=== PATIENT | male | born 1960 | race Caucasian/White ===

== ENCOUNTER → 2017-03-23 | Outpatient (REF) | payer OTHER ==
[2017-03-23 12:25] LABS: ALBUMIN/GLOBULIN RATIO 1.48 (1.00-1.93); ALKALINE PHOSPHATASE 46 U/L (45-117); ALT/SGPT 19 U/L (12-78); ANION GAP 6 MEQ/L (8-16); AST/SGOT 14 U/L (15-37); BILIRUBIN,TOTAL 0.4 MG/DL (0.2-1.0); BLOOD UREA NITROGEN 12 MG/DL (7-18); CALCIUM LEVEL 9.3 MG/DL (8.5-10.1); CARBON DIOXIDE LEVEL 29 MEQ/L (21-32); CHLORIDE LEVEL 103 MEQ/L (98-107); GLOMERULAR FILTRATION RATE > 60.0 (>56); GLUCOSE, FASTING 135 MG/DL (70-105); POTASSIUM SERUM 3.8 MEQ/L (3.5-5.1); SODIUM LEVEL 138 MEQ/L (136-145); TOTAL PROTEIN 6.7 GM/DL (6.4-8.2); URIC ACID 5.4 MG/DL (3.5-7.2)
[2017-03-25 00:10] LABS: Lyme Disease IgG/IgM Antibodie <0.91 ISR (0.00-0.90); Lyme Disease IgM Ab Quantitati <0.80 index (0.00-0.79)
== END ==
LOC: M LABDRAW1 11:35
PROVIDERS: ATTEND Physician Assistant
DX: S60.032D Contusion of left middle finger without damage to nail, subsequent encounter (principal); X58.XXXD Exposure to other specified factors, subsequent encounter; Y93.9 Activity, unspecified; Y92.9 Unspecified place or not applicable; Y99.8 Other external cause status

== ENCOUNTER → 2017-07-20 | Outpatient (CLI) | payer OTHER ==
--- NOTE | 2017-07-20 12:27 | REP ---
MRI LUMBAR SPINE WITHOUT CONTRAST: HISTORY: Back pain. The lowest intervertebral disc is assumed to be the L5-S1 intervertebral disc. A rudimentary disc is present at the S1-2 level. Decreased signal intensity on T2-weighted images is present in the T11-12 through L4-5 intervertebral discs. The discs are decreased in height. These findings are consistent with disc degeneration. A diffuse disc bulge is present at the L1-2 level. There are 2 mm of retrolisthesis of L1 on L2. There is minimal compression of the thecal sac. The L1 nerves exit the neural foramina without compression. A diffuse disc bulge is present at the L2-3 level. There is hypertrophy of the ligamenta flava and posterior articulating facets. These findings produce mild central canal stenosis. The L2 nerves exit the neural foramina without compression. A diffuse disc bulge asymmetric to the left is present at the L3-4 level. There is hypertrophy of the ligamenta flava and posterior articulating facets. These findings produce mild central canal stenosis. There is compression of the left L3 nerve in the neural foramen. The right L3 nerve exits the neural foramen without compression. A diffuse disc bulge is present at the L4-5 level. There is hypertrophy of the ligamenta flava and posterior articulating facets. A 2 mm synovial cyst is present medial to the left L4-5 facet joint. These findings produce mild central canal stenosis. There is compression of the L4 nerves in the neural foramina. A diffuse disc bulge is present at the L5-S1 level. There is minimal compression of the thecal sac. There is hypertrophy of the posterior articulating facets. The L5 nerves exit the neural foramina without compression. There is partial sacralization of the L5 vertebral body. The conus medullaris is normal in appearance terminating at the level of the T12-L1 intervertebral disc. A hemangioma is present in the L1 vertebral body. Increased signal intensity on T2-weighted images is present in the endplates of L1, L3 and L4 vertebral bodies. This represents degenerative change. IMPRESSION: 1. Diffuse disc bulge and retrolisthesis at the L1-2 level with minimal thecal sac compression. 2. Mild central canal stenosis at the L2-3 and L3-4 levels secondary to disc bulge, ligamentous and facet hypertrophy. There is compression of the left L3 nerve in the neural foramen. 3. Mild central canal stenosis at the L4-5 level secondary to disc bulge, ligamentous and facet hypertrophy and a left synovial cyst. There is compression of the L4 nerves in the neural foramina. 4. Diffuse disc bulge at the L5-S1 level with minimal thecal sac compression. Signed by Velasquez Fry MD 07/20/2017 12:37 P
== END ==
LOC: M RAD 10:35
PROVIDERS: ATTEND Physician Assistant
DX: M51.36 Other intervertebral disc degeneration, lumbar region (principal); M48.061 Spinal stenosis, lumbar region without neurogenic claudication

== ENCOUNTER → 2018-04-25 | Outpatient (REF) | payer OTHER ==
[2018-04-25 19:23] LABS: URINE TOTAL PROTEIN 6.9 MG/DL (0-12)
[2018-05-02 13:44] LABS: UPEP INTERPRETATION NO M-SPIKE NOTED; URINE VOLUME RANDOM ML
== END ==
LOC: M LAB REF 17:16
DX: R20.2 Paresthesia of skin (principal)
CPT/HCPCS: 84166

== ENCOUNTER → 2019-01-13 | Outpatient (CLI) | payer OTHER ==
--- NOTE | 2019-01-27 01:03 | ECWPNPC ---
PATIENT NAME: DEVIN POLLARD : 1960 GENDER: MALE VISIT DATE: 01/13/2019 DISCHARGE DATE: 01/13/19 1519 VISIT LOCKED DATE TIME: PHYSICIAN: CINDY ESCOBAR MD RESOURCE: CINDY ESCOBAR MD REASON FOR APPOINTMENT 1. LBP HISTORY OF PRESENT ILLNESS NEW PATIENT CONSULT: WHEN DID YOUR PAIN FIRST START? . BRIEFLY DESCRIBE HOW YOUR PAIN STARTED? . HOW DOES YOUR PAIN CHANGE WITH TIME? . DOES YOUR PAIN AWAKEN YOU FROM SLEEP? . HOW MANY HOURS OF SLEEP DO YOU NORMALLY GET? . ANY DIAGNOSTIC TESTING? . FACILITY WHERE TESTS WERE DONE? ____. PAIN TREATMENT TREATMENT YES CANCER HAVE YOU EVER HAD ANY TYPE OF CANCER?NO NO. PAIN SCREENING: PATIENT HAS A COMPLAINT OF ACUTE OR CHRONIC PAIN :YES 58 YEAR OLD MALE PATIENT WITH A HISTORY OF CHRONIC LOW BACK PAIN. THE PATIENT DESCRIBES THE PAIN ACHING, BURNING, SORE, SHARP, STABBING, SHOOTING, AND CONTINUOUS WITH A PAIN SCORE OF 2-8/10 DEPENDING ON PHYSICAL ACTIVITY. THE PATIENT SAYS HE HAS HAD THIS PAIN FOR YEARS. THE PATIENT SAYS HE HAS DIFFICULTY DOING DAILY ACTIVITIES SUCH COOKING, CLEANING, AND GROCERY SHOPPING DUE TO THIS PAIN. PATIENT DENIES UNEXPLAINABLE WEIGHT LOSS, FEVER, CHILLS, NEW CHANGES ON HIS URINARY OR BOWEL CONTROL. FALL RISK SCREENING: SCREENING : NO FALLS IN THE PAST YEAR. LEVI INVENTORY: QUESTIONNAIRE ASSESSEDTBD SCORE VALUE CALCULATED TBD CURRENT MEDICATIONS TAKING AZELASTINE HCL 0.1 % SOLUTION 1 PUFF IN EACH NOSTRIL NASALLY TWICE A DAY TAKING TRAMADOL HCL 50 MG TABLET 1 TABLET NEEDED ORALLY ONCE A DAY TAKING TRAMADOL HCL ER 200 MG TABLET EXTENDED RELEASE 24 HOUR 1 TABLET ORALLY ONCE A DAY TAKING AMLODIPINE BESYLATE 5 MG TABLET 1 TABLET ORALLY ONCE A DAY TAKING LISINOPRIL 40 MG TABLET 1 TABLET ORALLY ONCE A DAY TAKING FERROUS SULFATE 325 MG CAPSULE DIRECTED ORALLY TAKING MAGNESIUM OXIDE 400 MG TABLET 1 TABLET NEEDED ORALLY ONCE A DAY TAKING MULTIVITAMIN - TABLET CHEWABLE DIRECTED ORALLY TAKING VITAMIN B COMPLEX - TABLET DIRECTED ORALLY TAKING VITAMIN D3 2000 UNIT CAPSULE 1 CAPSULE ORALLY ONCE A DAY TAKING TYLENOL EXTRA STRENGTH 500 MG TABLET 1 TABLET NEEDED ORALLY EVERY 6 HRS TAKING HYDROCODONE-ACETAMINOPHEN 5-500 MG CAPSULE DIRECTED ORALLY , NOTES: 5/300 DOSE MEDICATION LIST REVIEWED AND RECONCILED WITH THE PATIENT PAST MEDICAL HISTORY HTN LBP ALLERGIES NSAIDS: ANGIOEDEMA - ALLERGY - CRITICALITY HIGH - ONSET DATE 01/13/2019 SURGICAL HISTORY APPENDECTOMY 1974 MELANOMA REMOVED POSTERIOR NECK 2007 FAMILY HISTORY FATHER: , DIAGNOSED WITH HYPERTENSION, HEART DISEASE MOTHER: ALIVE 1 BROTHER(S) , 1 SISTER(S) - HEALTHY. 3 SON(S) , 1 DAUGHTER(S) - HEALTHY. SOCIAL HISTORY GENERAL: PAIN CLINIC PFS, CLERGY, PUBLIC HEALTH REFERRALS CLERGY REFERRAL NEEDED?NO WAS THE PROVIDER NOTIFIED OF ANY PERTINENT INFO?NO PFS REFERRAL NEEDED?NO PUBLIC HEALTH REFERRAL NEEDED?NO PATIENT: ____. HOSPITALIZATION/MAJOR DIAGNOSTIC PROCEDURE SURGERY REVIEW OF SYSTEMS REVIEWED BY: PROVIDER: CINDY ESCOBAR MD . CONSTITUTIONAL: ANY CHANGE IN YOUR MEDICAL CONDITION? NO . CHILLS NO . FEVER NO . INFECTION: DO YOU HAVE NEW INFECTIONS? NO . DO YOU HAVE HISTORY OF MRSA? NO . MUSCULOSKELETAL: ANY NEW PATTERNS OF PAIN OR NUMBNESS? YES, BILAT FOOT ALTERED SENSORY X 5 YEARS . SYTEMIC LUPUS NO . GASTROENTEROLOGY: ANY NEW CHANGE IN BOWEL CONTROL? YES, PT C/O URGENCY W BOWELS, PT ASSOCIATES W TAKING TRAMADOL . BARRETTS ESOPHAGUS NO . CIRRHOSIS NO . HEPATITIS NO . LIVER FAILURE NO . ACID REFLUX NO . UNEXPLAINED WEIGHT LOSS NO . GENITOURINARY: ANY NEW CHANGE IN BLADDER CONTROL? YES, PT C/O URGENCY X 1-1 1/2 YEARS . IS THERE A CHANCE YOU COULD BE ? NO . HEMATOLOGY/LYMPH: DO YOU TAKE ANY BLOOD THINNERS? (FOR EXAMPLE- COUMADIN, PLAVIX, AGGRENOX, PLATEL, PRADAXA, OR XARELTO) NO . WHEN WAS YOUR LAST DOSE? DATE: TIME: . LOW PLATELET COUNT NO . SICKLE CELL DISEASE NO . VON WILLIEBRANDS NO . FACTOR V LEIDEN NO . THALLASEMIA NO . ANEMIA NO . EASY BRUISING NO . NEUROLOGY: HAVE YOU FALLEN IN THE PAST 12 MONTHS? YES, FELL 2 DAYS AGO FROM ALTERED FOOT SENSORY . ANY NEW EXTREMITY NUMBNESS OR WEAKNESS? YES ,BILAT FOOT ALTERED SENSORY . HEAD INJURY NO . DEMENTIA NO . CEREBRAL PALSY NO . MULTIPLE SCLEROSIS NO . DIZZINESS NO . HEADACHE NO . STROKES NO . VERTIGO NO . CARDIOLOGY: DO YOU HAVE A PACEMAKER OR DEFIBRILLATOR? NO . ANGINA NO . HEART ATTACK NO . HEART SURGERY NO . CONGESTIVE HEART FAILURE/FLUID OVERLOAD NO . CHEST PAIN NO . HIGH BLOOD PRESSURE ON MEDICATION(S) . IRREGULAR HEART BEAT NO . RESPIRATORY: HAVE YOU BEEN SICK IN THE PAST WEEK? NO . FEVER NO . FLU LIKE SYMPTOMS? NO . CPAP NO . BYPAP NO . ASTHMA NO . EMPHYSEMA NO . CHRONIC LUNG DISEASES NO . SHORTNESS OF BREATH ON EXERTION NO . DO YOU USE ANY TYPE OF TOBACCO (SMOKE, SMOKELESS, CHEW)? NO . COUGH NO . SNORING NO . INTEGUMENTARY: DO YOU HAVE ANY RASHES OR OPEN SORES? NO . ALLERGIC/IMMUNO: ARE YOU ALLERGIC TO IV DYE? NO . ANY NEW ALLERGIES? NO . PSYCHIATRIC: DO YOU HAVE THOUGHTS OF HURTING YOURSELF OR SOMEONE ELSE? NO . ARE YOU ABUSED, NEGLECTED, OR IN AN UNSAFE ENVIRONMENT? NO . ENDOCRINOLOGY: ARE YOU DIABETIC? NO . THYROID DISORDER NO . OTHER: DO YOU NEED ANY PRESCRIPTIONS? YES ,CURRENTLY PRESCRIBED BY PCP . IF YES, PLEASE LIST: ____ . ANY NEW PROBLEMS WITH YOUR MEDICATIONS? NO . WHEN DID YOU LAST EAT? ____ . WHEN DID YOU LAST DRINK? ____ . WHAT DID YOU LAST DRINK? ____ . NAME OF PERSON DRIVING YOU HOME? ____ . DO YOU HAVE ANY OTHER QUESTIONS OR CONCERNS YES, PT ASKING FOR PAIN RELIEF, ASKING FOR INTERVENTIONS NON-MEDICAL AND NON-INVASIVE . VITAL SIGNS WT 168.2 LBS, HT 72 IN, BMI 22.81 INDEX, BP 145/80 MM HG, HR 76 /MIN, RR 18 /MIN, TEMP 97.4 F, OXYGEN SAT % 94%, NA INITIALS SC 12:49, REVIEWED BY: ALEXEI. EXAMINATION GENERAL EXAMINATION: PATIENT IS ALERT O X 3 AND COOPERATIVE. TENDERNESS IN THE LOW BACK AREA. PRESENCE OF TRIGGER POINTS AND BANDS OF TISSUE WITH RESTRICTION OF MOVEMENT OF THE BACK. PAIN INCREASES OVER THE LUMBAR FACET JOINTS WITH EXTENSION AND LATERAL ROTATION OF THE BACK. MRI OF THE LUMBAR SPINE DONE ON 07/20/2017 SHOWS FACET ARTHROPATHY CHANGES AT MULTIPLE LEVELS. ASSESSMENTS MYALGIA, OTHER SITE - M79.18 (PRIMARY) TREATMENT MYALGIA, OTHER SITE CLINICAL NOTES: WE DISCUSSED SEVERAL ISSUES WITH MR. POLLARD'S PAIN MANAGEMENT CASE. DUE TO THE TRIGGER POINTS, BANDS OF TISSUE, AND RESTRICTION OF MOVEMENT, I WOULD LIKE TO MOVE FORWARD WITH A TRIGGER POINT INJECTION AT THIS TIME. WE DISCUSSED THE BENEFITS, RISKS, AND ALTERNATIVES OF THE INJECTION AND THE PATIENT WOULD LIKE TO PROCEED. THE PATIENT MAY CONSIDER A LUMBAR FACET BLOCK DEPENDING ON THE RESULTS OF THE INJECTION. THE PATIENT WILL FOLLOW UP A FEW WEEKS AFTER THE INJECTION. INSTRUCTIONS WERE GIVEN, QUESTIONS WERE ANSWERED, PATIENT REPORTS UNDERSTANDING AND AGREES WITH THE PLAN. I, ANGELIA MOLINA, DOCUMENTED THE ABOVE INFORMATION ACTING A SCRIBE FOR DR. ESCOBAR. I HAVE REVIEWED THE ABOVE DOCUMENT, WRITTEN BY ANGELIA PRETTY AND I VERIFY THAT IT IS ACCURATE. DEAR RADHA LOVE:THANK YOU FOR YOUR KIND REFERRAL OF MR. POLLARD. IF YOU WANT TO DISCUSS HIS CASE WITH ME PLEASE CALL ME AT THE PAIN CENTER AT [phone]. SINCERELY,CINDY ESCOBAR, [facility] . OTHERS NOTES: TRIGGER POINT INJECTION: YOUR EXPERIENCE MATERIAL WAS PRINTED,TRIGGER POINT INJECTION MATERIAL WAS PRINTED. PREVENTIVE MEDICINE PAIN CLINIC TEACHING: PROCEDURE TEACHING PT GIVEN WRITTEN AND VERBAL EDUCATION ON TRIGGER POINT INJECTIONS. PT ALSO GIVEN WRITTEN AND VERBAL PRE-PROCEDURE INSTRUCTIONS. PT VERBALIZES UNDERSTANDING OF ALL EDUCATION AND INSTRUCTIONS BLAKE COLEMAN 01/13/2019 3:20:31 PM > . PROCEDURE CODES FA211 ESTABILISHED PATIENT [facility] FACILITY CHARGE G8427 CURRENT MEDS W/DOSAGES DOCUMENTED G8730 PAIN ASSESS POS TOOL F/U PLAN DOC DISPOSITION & COMMUNICATION FOLLOW UP 3 WEEKS ELECTRONICALLY SIGNED BY CINDY ESCOBAR MD, MD ON 01/26/2019 AT 06:42 PM EDT DISCLAIMER : THIS IS A VISIT SUMMARY EXTRACTED FROM THE [employer] CHART. IT IS NOT A COPY OF THE [employer] PROGRESS NOTE. MTDD
== END ==
LOC: M PAIN 12:45
PROVIDERS: ATTEND Anesthesiology
DX: M79.18 Myalgia, other site (principal); I10 Essential (primary) hypertension; Z88.6 Allergy status to analgesic agent; Z79.891 Long term (current) use of opiate analgesic; Z79.899 Other long term (current) drug therapy

== ENCOUNTER → 2019-02-12 | Outpatient (CLI) | payer OTHER ==
[~2019-02-12] MED LIST: BUPIVACAINE HCL 0.25% 10 ML VIAL As Ordered ONE; BUPIVACAINE HCL 0.25% 30 ML VIAL As Ordered ONE; TRIAMCINOLONE ACETONIDE SUSP 40 MG/ML VIAL (J3301) As Ordered ONE; diazePAM 5 MG TAB As Ordered ONE; oxyCODONE 5MG TAB As Ordered ONE
--- NOTE | 2019-02-15 01:41 | ECWPNPC ---
PATIENT NAME: DEVIN POLLARD : 1960 GENDER: MALE VISIT DATE: 02/12/2019 DISCHARGE DATE: 02/12/19 1224 VISIT LOCKED DATE TIME: PHYSICIAN: CINDY ESCOBAR MD RESOURCE: CINDY ESCOBAR MD REASON FOR APPOINTMENT 1. TPI HISTORY OF PRESENT ILLNESS HISTORY OF PRESENT ILLNESS: PAIN THE PATIENT DESCRIBES THE PAIN... FALL RISK SCREENING: SCREENING :NO FALLS REPORTED IN THE LAST YEAR CURRENT MEDICATIONS TAKING AZELASTINE HCL 0.1 % SOLUTION 1 PUFF IN EACH NOSTRIL NASALLY TWICE A DAY, NOTES: > 3 WEEKS TAKING TRAMADOL HCL 50 MG TABLET 1 TABLET NEEDED ORALLY ONCE A DAY, NOTES: 02/12/19 0500 TAKING TRAMADOL HCL ER 200 MG TABLET EXTENDED RELEASE 24 HOUR 1 TABLET ORALLY ONCE A DAY, NOTES: 02/11/19 0630 TAKING AMLODIPINE BESYLATE 5 MG TABLET 1 TABLET ORALLY ONCE A DAY, NOTES: 02/12/19 0500 TAKING LISINOPRIL 40 MG TABLET 1 TABLET ORALLY ONCE A DAY, NOTES: 02/11/19 1400 TAKING FERROUS SULFATE 325 MG CAPSULE DIRECTED ORALLY , NOTES: 02/11/19 1400 TAKING MAGNESIUM OXIDE 400 MG TABLET 1 TABLET NEEDED ORALLY ONCE A DAY, NOTES: 02/11/19 1400 TAKING MULTIVITAMIN - TABLET CHEWABLE DIRECTED ORALLY , NOTES: 02/11/19 1400 TAKING VITAMIN B COMPLEX - TABLET DIRECTED ORALLY , NOTES: 02/11/19 1400 TAKING VITAMIN D3 2000 UNIT CAPSULE 1 CAPSULE ORALLY ONCE A DAY, NOTES: 02/11/19 1400 TAKING TYLENOL EXTRA STRENGTH 500 MG TABLET 1 TABLET NEEDED ORALLY EVERY 6 HRS, NOTES: 02/12/19 0500 TAKING HYDROCODONE-ACETAMINOPHEN 5-500 MG CAPSULE DIRECTED ORALLY , NOTES: 02/10/19 TAKING MAY USE CBD OIL MEDICATION LIST REVIEWED AND RECONCILED WITH THE PATIENT PAST MEDICAL HISTORY HTN LBP ALLERGIES NSAIDS: ANGIOEDEMA - ALLERGY - CRITICALITY HIGH - ONSET DATE 01/13/2019 SURGICAL HISTORY APPENDECTOMY 1974 MELANOMA REMOVED POSTERIOR NECK 2007 FAMILY HISTORY FATHER: , DIAGNOSED WITH HYPERTENSION, HEART DISEASE MOTHER: ALIVE 1 BROTHER(S) , 1 SISTER(S) - HEALTHY. 3 SON(S) , 1 DAUGHTER(S) - HEALTHY. SOCIAL HISTORY GENERAL: TOBACCO USE ARE YOU A:CURRENT SOME DAY SMOKER 1 PACK/WEEK PAIN CLINIC PFS, CLERGY, PUBLIC HEALTH REFERRALS PFS REFERRAL NEEDED?NO CLERGY REFERRAL NEEDED?NO PUBLIC HEALTH REFERRAL NEEDED?NO WAS THE PROVIDER NOTIFIED OF ANY PERTINENT INFO?NO HAS THE PATIENT BEEN EDUCATED REGARDING HIS/HER PLAN OF CARE?YES HAS THE PATIENT BEEN EDUCATED REGARDING PAIN, THE RISK FOR PAIN, THE IMPORTANCE OF EFFECTIVE PAIN MANAGEMENT, AND THE PAIN ASSESSMENT PROCESS?YES LATEX QUESTIONNAIRE LATEX ALLERGY : HAVE YOU EVER DEVELOPED ANY TYPE OF REACTION AFTER HANDLING LATEX PRODUCTS SUCH RUBBER GLOVES, CONDOMS, DIAPHRAGMS, BALLOONS, SOCKS, OR UNDERWEAR?NO LATEX ALLERGY : HAVE YOU EVER DEVELOPED ANY TYPE OF REACTION DURING OR AFTER DENTAL APPOINTMENT, VAGINAL/RECTAL EXAMINATION, SURGICAL PROCEDURE, OR ANY OTHER EXPOSURE?NO LATEX RISK : HAVE YOU EVER HAD ANY DIFFICULTY BREATHING OR HIVES AFTER EATING OR HANDLING ANY FRUITS, OR VEGETABLES; SUCH KIWI, BANANAS, STONE FRUITS, OR CHESTNUTSNO LATEX RISK : DO YOU HAVE A PREVIOUS PERSONAL HISTORY OF MORE THAN NINE SURGERIES, SPINA BIFIDA, OR REPEATED CATHERTIZATIONS? NO LATEX RISK : ARE YOU FREQUENTLY EXPOSED TO LATEX PRODUCTS IN YOUR OCCUPATION?NO DATE ASKED : 02/12/2019 ADVANCE DIRECTIVE ADVANCE DIRECTIVE DISCUSSED WITH PATIENT:YES PT HAS NO ADVANCED DIRECTIVES, DECLINES INFORMATION OR ASSISTANCE AT THIS TIME LANGUAGE LANGUAGES SPOKEN:UPPER SORBIAN REVIEWED 02/12/19 1115 LAS. HOSPITALIZATION/MAJOR DIAGNOSTIC PROCEDURE SURGERY REVIEW OF SYSTEMS REVIEWED BY: PROVIDER: . CONSTITUTIONAL: ANY CHANGE IN YOUR MEDICAL CONDITION? NO . CHILLS NO . FEVER NO . INFECTION: DO YOU HAVE NEW INFECTIONS? NO . DO YOU HAVE HISTORY OF MRSA? NO . MUSCULOSKELETAL: ANY NEW PATTERNS OF PAIN OR NUMBNESS? NO . GASTROENTEROLOGY: ANY NEW CHANGE IN BOWEL CONTROL? NO . GENITOURINARY: ANY NEW CHANGE IN BLADDER CONTROL? NO . IS THERE A CHANCE YOU COULD BE ? NO . HEMATOLOGY/LYMPH: DO YOU TAKE ANY BLOOD THINNERS? (FOR EXAMPLE- COUMADIN, PLAVIX, AGGRENOX, PLATEL, PRADAXA, OR XARELTO) NO . WHEN WAS YOUR LAST DOSE? DATE: TIME: . NEUROLOGY: HAVE YOU FALLEN IN THE PAST 12 MONTHS? PT REPORTS HE HAS LOST SOME FEELING IN HIS FEET, CAUSING HIM TO STUMBLE FREQUENTLY. PT DENIES INJURY, NO ED VISITS . ANY NEW EXTREMITY NUMBNESS OR WEAKNESS? NO . CARDIOLOGY: DO YOU HAVE A PACEMAKER OR DEFIBRILLATOR? NO . RESPIRATORY: HAVE YOU BEEN SICK IN THE PAST WEEK? NO . FEVER NO . FLU LIKE SYMPTOMS? NO . COUGH NO . INTEGUMENTARY: DO YOU HAVE ANY RASHES OR OPEN SORES? NO . ALLERGIC/IMMUNO: ARE YOU ALLERGIC TO IV DYE? NO . ANY NEW ALLERGIES? NO . PSYCHIATRIC: DO YOU HAVE THOUGHTS OF HURTING YOURSELF OR SOMEONE ELSE? NO . ARE YOU ABUSED, NEGLECTED, OR IN AN UNSAFE ENVIRONMENT? NO . ENDOCRINOLOGY: ARE YOU DIABETIC? NO . OTHER: DO YOU NEED ANY PRESCRIPTIONS? NO . IF YES, PLEASE LIST: ____ . ANY NEW PROBLEMS WITH YOUR MEDICATIONS? NO . WHEN DID YOU LAST EAT? ____02/11/192014 . WHEN DID YOU LAST DRINK? ____02/12/19629 . WHAT DID YOU LAST DRINK? ____BLACK COFFEE . NAME OF PERSON DRIVING YOU HOME? ____WIFE, HOOD . DO YOU HAVE ANY OTHER QUESTIONS OR CONCERNS NO . VITAL SIGNS WT 170.0 LBS, HT 72 IN, BMI 23.05 INDEX, BP 157/74 MM HG, HR 77 /MIN, RR 18 /MIN, TEMP 98.0 F, OXYGEN SAT % 98, NA INITIALS MP 1008, REVIEWED BY: ASIF. ASSESSMENTS MYALGIA, OTHER SITE - M79.18 (PRIMARY) PROCEDURES PN TRIGGER POINT INJECTION WITH STEROIDS PRE PROCEDURE DIAGNOSIS 1. MYALGIA 2. PAIN AT BILATERAL LOW BACK AREA POST PROCEDURE DIAGNOSIS 1. MYALGIA 2. PAIN AT BILATERAL LOW BACK AREA PROCEDURE TRIGGER POINT INJECTION AT BILATERAL LOW BACK AREA SURGEON DR. CINDY ESCOBAR ASSEMBLER DC FIELD RING NONE ANESTHESIA LOCAL PRE PROCEDURE NOTE THE PATIENT HAS A HISTORY OF CHRONIC PAIN AT THE RIGHT AND LEFT LOW BACK AREA. I EVALUATE THE PATIENT AND REVIEWED THE CHART. THERE IS EVIDENCE OF BANDS OF TISSUE WITH RESTRICTION OF MOVEMENT AND PRESENCE OF TRIGGER POINT AT THE AFFECTED AREA. I WENT OVER THE RISKS, ALTERNATIVES, AND BENEFITS ASSOCIATED WITH THIS PROCEDURE. THE PATIENT WOULD LIKE TO PROCEED AND GIVE CONSENT TO PERFORMED THE PROCEDURE. THE PATIENT DENIES UNEXPLAINABLE WEIGHT LOSS, FEVER, CHILLS, OR NEW CHANGES IN URINARY OR BOWEL CONTROL DESCRIPTION OF PROCEDURE THE PATIENT WAS BROUGHT TO THE PROCEDURE ROOM AND PLACED IN THE SITTING POSITION. THE AREA WAS CLEANED WITH ALCOHOL. THE PROCEDURE WAS DONE USING ASEPTIC STERILE TECHNIQUE. I CHECKED LATERALITY AND THE LEVEL WHERE THE PROCEDURE WAS GOING TO BE PERFORMED WITH THE PATIENT AND THE SUPPORTING STAFF AT THE MOMENT OF THE TIME OUT IN THE PROCEDURE ROOM. USING A 25-GAUGE NEEDLE, TRIGGER POINTS WERE INJECTED AT THE RIGHT AND LEFT LOW BACK AREA WITH A TOTAL OF 40 ML OF BUPIVACAINE 0.25% AND KENALOG 40 MG. THERE WAS NO EVIDENCE OF BLOOD, PARESTHESIA OR CEREBROSPINAL FLUID DURING THE PROCEDURE. THE PATIENT WAS SENT TO THE RECOVERY ROOM. THE PATIENT WAS MOVING THE EXTREMITIES AND DOING WELL. THERE WAS NO COMPLICATION DURING THE PROCEDURE POST PROCEDURE NOTE THE PATIENT WILL BE SEEN IN A FOLLOW UP IN THE NEXT FEW WEEKS. INSTRUCTIONS WERE GIVEN, QUESTIONS WERE ANSWERED, AND THE PATIENT EXPRESSED UNDERSTANDING AND AGREES WITH THE PLAN. I, ANGELIA MOLINA, DOCUMENTED THE ABOVE INFORMATION ACTING A SCRIBE FOR DR. ESCOBAR. I HAVE REVIEWED THE ABOVE DOCUMENT, WRITTEN BY ANGELIA PRETTY AND I VERIFY THAT IT IS ACCURATE. PROCEDURE CODES 18960 INJ TRIGGER POINT / [facility] DISPOSITION & COMMUNICATION FOLLOW UP 3 WEEKS ELECTRONICALLY SIGNED BY CINDY ESCOBAR MD, MD ON 02/14/2019 AT 05:14 PM EDT DISCLAIMER : THIS IS A VISIT SUMMARY EXTRACTED FROM THE [employer] CHART. IT IS NOT A COPY OF THE [employer] PROGRESS NOTE. TIMUR
== END ==
LOC: M PAIN 10:15
PROVIDERS: ATTEND Anesthesiology
DX: M79.18 Myalgia, other site (principal); I10 Essential (primary) hypertension; M54.5 Low back pain; F17.210 Nicotine dependence, cigarettes, uncomplicated; Z85.820 Personal history of malignant melanoma of skin; Z90.49 Acquired absence of other specified parts of digestive tract; Z79.891 Long term (current) use of opiate analgesic; Z79.899 Other long term (current) drug therapy; Z88.6 Allergy status to analgesic agent
CPT/HCPCS: 20552; J3301

== ENCOUNTER → 2019-05-06 | Outpatient (CLI) | payer OTHER ==
--- NOTE | 2019-05-07 23:24 | ECWPNPC ---
PATIENT NAME: DEVIN POLLARD : 1960 GENDER: MALE VISIT DATE: 05/06/2019 DISCHARGE DATE: 05/06/19 1144 VISIT LOCKED DATE TIME: PHYSICIAN: DEVORAH SMITH RESOURCE: DEVORAH SMITH REASON FOR APPOINTMENT 1. POST TPI HISTORY OF PRESENT ILLNESS HISTORY OF PRESENT ILLNESS: PAIN THE PATIENT DESCRIBES THE PAIN... 58 YEAR OLD MALE IN FOR POST TPI FOLLOW UP. HE FEELS THE PROCEDURE WORKED WELL AND WOULD LIKE TO DISCUSS A REPEAT PROCEDURE. PRE PROCEDURE HE RATED HIS PAIN AT AN 8/10 AND IT WENT DOWN TO A 2-3/10 POST PROCEDURE. HE RATES HIS PAIN AT A 6-8/10 CURRENTLY AND DESCRIBES IT ACHING, SHARP, STABBING, BURNING, AND STIFFNESS. FALL RISK SCREENING: SCREENING :NO FALLS REPORTED IN THE LAST YEAR CURRENT MEDICATIONS TAKING AZELASTINE HCL 0.1 % SOLUTION 1 PUFF IN EACH NOSTRIL NASALLY TWICE A DAY TAKING TRAMADOL HCL 50 MG TABLET 1 TABLET NEEDED ORALLY ONCE A DAY TAKING TRAMADOL HCL ER 200 MG TABLET EXTENDED RELEASE 24 HOUR 1 TABLET ORALLY ONCE A DAY TAKING AMLODIPINE BESYLATE 5 MG TABLET 2 TABS ORALLY ONCE A DAY TAKING LISINOPRIL 40 MG TABLET 1 TABLET ORALLY ONCE A DAY TAKING FERROUS SULFATE 325 MG CAPSULE DIRECTED ORALLY TAKING MAGNESIUM OXIDE 400 MG TABLET 1 TABLET NEEDED ORALLY ONCE A DAY TAKING MULTIVITAMIN - TABLET CHEWABLE DIRECTED ORALLY TAKING VITAMIN B COMPLEX - TABLET DIRECTED ORALLY TAKING VITAMIN D3 2000 UNIT CAPSULE 1 CAPSULE ORALLY ONCE A DAY TAKING TYLENOL EXTRA STRENGTH 500 MG TABLET 1 TABLET NEEDED ORALLY EVERY 6 HRS TAKING HYDROCODONE-ACETAMINOPHEN 5-500 MG CAPSULE DIRECTED ORALLY NOT-TAKING MAY USE CBD OIL PAST MEDICAL HISTORY HTN LBP ALLERGIES NSAIDS: ANGIOEDEMA - ALLERGY - CRITICALITY HIGH - ONSET DATE 01/13/2019 SURGICAL HISTORY APPENDECTOMY 1974 MELANOMA REMOVED POSTERIOR NECK 2007 FAMILY HISTORY FATHER: , DIAGNOSED WITH HYPERTENSION, HEART DISEASE MOTHER: ALIVE 1 BROTHER(S) , 1 SISTER(S) - HEALTHY. 3 SON(S) , 1 DAUGHTER(S) - HEALTHY. SOCIAL HISTORY GENERAL: TOBACCO USE ARE YOU A:CURRENT SOME DAY SMOKER TYING TO QUIT AND IS USING NICOTINE PATCHES SMOKING CESSATION INFORMATION GIVEN05/06/2019 PAIN CLINIC PFS, CLERGY, PUBLIC HEALTH REFERRALS PFS REFERRAL NEEDED?NO CLERGY REFERRAL NEEDED?NO PUBLIC HEALTH REFERRAL NEEDED?NO WAS THE PROVIDER NOTIFIED OF ANY PERTINENT INFO?NO HAS THE PATIENT BEEN EDUCATED REGARDING HIS/HER PLAN OF CARE?YES HAS THE PATIENT BEEN EDUCATED REGARDING PAIN, THE RISK FOR PAIN, THE IMPORTANCE OF EFFECTIVE PAIN MANAGEMENT, AND THE PAIN ASSESSMENT PROCESS?YES LATEX QUESTIONNAIRE LATEX ALLERGY : HAVE YOU EVER DEVELOPED ANY TYPE OF REACTION AFTER HANDLING LATEX PRODUCTS SUCH RUBBER GLOVES, CONDOMS, DIAPHRAGMS, BALLOONS, SOCKS, OR UNDERWEAR?NO LATEX ALLERGY : HAVE YOU EVER DEVELOPED ANY TYPE OF REACTION DURING OR AFTER DENTAL APPOINTMENT, VAGINAL/RECTAL EXAMINATION, SURGICAL PROCEDURE, OR ANY OTHER EXPOSURE?NO LATEX RISK : HAVE YOU EVER HAD ANY DIFFICULTY BREATHING OR HIVES AFTER EATING OR HANDLING ANY FRUITS, OR VEGETABLES; SUCH KIWI, BANANAS, STONE FRUITS, OR CHESTNUTSNO LATEX RISK : DO YOU HAVE A PREVIOUS PERSONAL HISTORY OF MORE THAN NINE SURGERIES, SPINA BIFIDA, OR REPEATED CATHERIZATIONS? NO LATEX RISK : ARE YOU FREQUENTLY EXPOSED TO LATEX PRODUCTS IN YOUR OCCUPATION?NO DATE ASKED : 02/12/2019 ADVANCE DIRECTIVE ADVANCE DIRECTIVE DISCUSSED WITH PATIENT:YES PT HAS NO ADVANCED DIRECTIVES, DECLINES INFORMATION OR ASSISTANCE AT THIS TIME LANGUAGE LANGUAGES SPOKEN:KENYAN REVIEWED 02/12/19 1115 LASREVIEWED WITH PATEINT 05/06/19 1040 NLJ. HOSPITALIZATION/MAJOR DIAGNOSTIC PROCEDURE SURGERY REVIEW OF SYSTEMS REVIEWED BY: PROVIDER: CHINYERE BURNS . CONSTITUTIONAL: ANY CHANGE IN YOUR MEDICAL CONDITION? NO . CHILLS NO . FEVER NO . INFECTION: DO YOU HAVE NEW INFECTIONS? NO . DO YOU HAVE HISTORY OF MRSA? NO . MUSCULOSKELETAL: ANY NEW PATTERNS OF PAIN OR NUMBNESS? YES- STATES PAIN HAS RETURNED ALMOST TO PRE INJECTION LEVEL SINCE ABOUT 2 WEEKS AGO, STATES HE HAS PROGRESSIVE NUMBNESS IN BILATERAL FEET . GASTROENTEROLOGY: ANY NEW CHANGE IN BOWEL CONTROL? NO . GENITOURINARY: ANY NEW CHANGE IN BLADDER CONTROL? NO . IS THERE A CHANCE YOU COULD BE ? NO . HEMATOLOGY/LYMPH: DO YOU TAKE ANY BLOOD THINNERS? (FOR EXAMPLE- COUMADIN, PLAVIX, AGGRENOX, PLATEL, PRADAXA, OR XARELTO) NO . WHEN WAS YOUR LAST DOSE? DATE: TIME: . NEUROLOGY: HAVE YOU FALLEN IN THE PAST 12 MONTHS? YES- STATES HE FALLS FREQUENTLY, STATES NO INJURIES OR MEDICAL CARE RECEIVED . ANY NEW EXTREMITY NUMBNESS OR WEAKNESS? NO . CARDIOLOGY: DO YOU HAVE A PACEMAKER OR DEFIBRILLATOR? NO . RESPIRATORY: HAVE YOU BEEN SICK IN THE PAST WEEK? NO . FEVER NO . FLU LIKE SYMPTOMS? NO . COUGH NO . INTEGUMENTARY: DO YOU HAVE ANY RASHES OR OPEN SORES? NO . ALLERGIC/IMMUNO: ARE YOU ALLERGIC TO IV DYE? NO . ANY NEW ALLERGIES? NO . PSYCHIATRIC: DO YOU HAVE THOUGHTS OF HURTING YOURSELF OR SOMEONE ELSE? NO . ARE YOU ABUSED, NEGLECTED, OR IN AN UNSAFE ENVIRONMENT? NO . ENDOCRINOLOGY: ARE YOU DIABETIC? NO . OTHER: DO YOU NEED ANY PRESCRIPTIONS? NO . IF YES, PLEASE LIST: ____ . ANY NEW PROBLEMS WITH YOUR MEDICATIONS? NO . WHEN DID YOU LAST EAT? ____ . WHEN DID YOU LAST DRINK? ____ . WHAT DID YOU LAST DRINK? ____ . NAME OF PERSON DRIVING YOU HOME? ____ . DO YOU HAVE ANY OTHER QUESTIONS OR CONCERNS YES- PAIN HAS RETURNED ABOUT 2 WEEKS AGO TO ALMOST PRE INJECTION LEVEL, STATES HE HAS RESTARTED PHYSICAL THERAPY 2 TIMES A WEEK WITH AT HOME EXERCISES IN BETWEEN VISITS . VITAL SIGNS WT 161.6 LBS, HT 72 IN, BMI 21.91 INDEX, BP 159/88 MM HG, HR 72 /MIN, RR 18 /MIN, TEMP 98.7 F, OXYGEN SAT % 97%, SAFE IN ENV? (Y/N) YES, NA INITIALS AW 1026, REVIEWED BY: NAYANA. EXAMINATION GENERAL EXAMINATION: GENERALNO ACUTE DISTRESS, WELL NOURISHED AND HYDRATED. PSYCHAPPROPRIATE MOOD AND AFFECT . LUNGS:CLEAR TO AUSCULTATION BILATERALLY, NO WHEEZES, RHONCHI, RALES. HEART:NO MURMURS, REGULAR RATE AND RHYTHM. BACK:POINT TENDER IN THE LOW BACK, SURROUNDING SKIN SHOWS NO ERYTHEMA, ECCHYMOSIS, INCREASED WARMTH, AND/OR SKIN ERUPTIONS. . ASSESSMENTS MYALGIA, OTHER SITE - M79.18 (PRIMARY) TREATMENT MYALGIA, OTHER SITE NOTES: BILATERAL TPI OF LOWER BACK . CLINICAL NOTES: 58 YEAR OLD MALE IN FOR POST TPI FOLLOW UP. GIVEN PRESENTING SYMPTOMS AND RESULTS OF PHYSICAL EXAMINATION RECOMMENDED REPEAT TPI WITH POST PROCEDURAL FOLLOW UP. PATIENT HAS EXPRESSED UNDERSTANDING OF AND WAS IN AGREEMENT WITH TREATMENT PLAN. GIVEN TIME TO ASK QUESTIONS AND EXPRESS CONCERNS. . PREVENTIVE MEDICINE PAIN CLINIC TEACHING: PROCEDURE TEACHING TRIGGER POINT INJECTIONS PROCEDURE REVIEWED WITH PATIENT, PATIENT DECLINED PRINTED INFORMATION 05/06/19 1145 NAYANA. PROCEDURE CODES FA211 ESTABILISHED PATIENT NEW [facility] CHARGE DISPOSITION & COMMUNICATION FOLLOW UP POST PROCEDURE (REASON: BILATERAL TPI OF LOWER BACK ) ELECTRONICALLY SIGNED BY NATHANAEL GRIFFIN ON 05/07/2019 AT 10:58 AM EDT DISCLAIMER : THIS IS A VISIT SUMMARY EXTRACTED FROM THE [employer] CHART. IT IS NOT A COPY OF THE [employer] PROGRESS NOTE. TIMUR
== END ==
LOC: M PAIN 10:15
PROVIDERS: ATTEND Family Medicine
DX: M79.18 Myalgia, other site (principal); I10 Essential (primary) hypertension; F17.210 Nicotine dependence, cigarettes, uncomplicated; Z88.6 Allergy status to analgesic agent; Z79.891 Long term (current) use of opiate analgesic; Z79.899 Other long term (current) drug therapy

== ENCOUNTER → 2019-06-05 | Outpatient (CLI) | payer OTHER ==
--- NOTE | 2019-06-15 23:39 | ECWPNPC ---
PATIENT NAME: DEVIN POLLARD : 1960 GENDER: MALE VISIT DATE: 06/05/2019 DISCHARGE DATE: 06/05/19 1550 VISIT LOCKED DATE TIME: PHYSICIAN: CINDY ESCOBAR MD RESOURCE: CINDY ESCOBAR MD REASON FOR APPOINTMENT 1. TPI HISTORY OF PRESENT ILLNESS HISTORY OF PRESENT ILLNESS: PAIN THE PATIENT DESCRIBES THE PAIN... FALL RISK SCREENING: SCREENING :NO FALLS REPORTED IN THE LAST YEAR CURRENT MEDICATIONS TAKING AZELASTINE HCL 0.1 % SOLUTION 2 PUFFS IN EACH NOSTRIL NASALLY TWICE A DAY TAKING AMLODIPINE BESYLATE 10 MG TABLET 1 TABLET ORALLY ONCE A DAY TAKING LISINOPRIL 40 MG TABLET 1 TABLET ORALLY ONCE A DAY TAKING FERROUS SULFATE 325 MG CAPSULE DIRECTED ORALLY TAKING MAGNESIUM OXIDE 400 MG TABLET 1 TABLET NEEDED ORALLY ONCE A DAY TAKING MULTIVITAMIN - TABLET CHEWABLE DIRECTED ORALLY TAKING VITAMIN B COMPLEX - TABLET DIRECTED ORALLY TAKING VITAMIN D3 1000 UNIT CAPSULE 2 CAPSULE ORALLY ONCE A DAY TAKING TYLENOL EXTRA STRENGTH 500 MG TABLET 2 TABLET NEEDED ORALLY EVERY 6 HRS TAKING HYDROCODONE-ACETAMINOPHEN 5-300 MG TABLET DIRECTED ORALLY MDD=4 NOT-TAKING MAY USE CBD OIL DISCONTINUED TRAMADOL HCL 50 MG TABLET 1 TABLET NEEDED ORALLY ONCE A DAY DISCONTINUED TRAMADOL HCL ER 200 MG TABLET EXTENDED RELEASE 24 HOUR 1 TABLET ORALLY ONCE A DAY MEDICATION LIST REVIEWED AND RECONCILED WITH THE PATIENT PAST MEDICAL HISTORY HTN LBP ALLERGIES NSAIDS: ANGIOEDEMA - ALLERGY - CRITICALITY HIGH - ONSET DATE 01/13/2019 SURGICAL HISTORY APPENDECTOMY 1974 MELANOMA REMOVED POSTERIOR NECK 2007 FAMILY HISTORY FATHER: , DIAGNOSED WITH HYPERTENSION, UNSPECIFIED HEART DISEASE MOTHER: ALIVE 1 BROTHER(S) , 1 SISTER(S) - HEALTHY. 3 SON(S) , 1 DAUGHTER(S) - HEALTHY. SOCIAL HISTORY GENERAL: TOBACCO USE ARE YOU A:CURRENT SOME DAY SMOKER TYING TO QUIT AND IS USING NICOTINE PATCHES SMOKING CESSATION INFORMATION GIVEN05/06/2019 PAIN CLINIC PFS, CLERGY, PUBLIC HEALTH REFERRALS PFS REFERRAL NEEDED?NO CLERGY REFERRAL NEEDED?NO PUBLIC HEALTH REFERRAL NEEDED?NO WAS THE PROVIDER NOTIFIED OF ANY PERTINENT INFO?NO HAS THE PATIENT BEEN EDUCATED REGARDING HIS/HER PLAN OF CARE?YES HAS THE PATIENT BEEN EDUCATED REGARDING PAIN, THE RISK FOR PAIN, THE IMPORTANCE OF EFFECTIVE PAIN MANAGEMENT, AND THE PAIN ASSESSMENT PROCESS?YES LATEX QUESTIONNAIRE LATEX ALLERGY : HAVE YOU EVER DEVELOPED ANY TYPE OF REACTION AFTER HANDLING LATEX PRODUCTS SUCH RUBBER GLOVES, CONDOMS, DIAPHRAGMS, BALLOONS, SOCKS, OR UNDERWEAR?NO LATEX ALLERGY : HAVE YOU EVER DEVELOPED ANY TYPE OF REACTION DURING OR AFTER DENTAL APPOINTMENT, VAGINAL/RECTAL EXAMINATION, SURGICAL PROCEDURE, OR ANY OTHER EXPOSURE?NO DATE ASKED : 02/12/2019 LATEX RISK : HAVE YOU EVER HAD ANY DIFFICULTY BREATHING OR HIVES AFTER EATING OR HANDLING ANY FRUITS, OR VEGETABLES; SUCH KIWI, BANANAS, STONE FRUITS, OR CHESTNUTSNO LATEX RISK : DO YOU HAVE A PREVIOUS PERSONAL HISTORY OF MORE THAN NINE SURGERIES, SPINA BIFIDA, OR REPEATED CATHERIZATIONS? NO LATEX RISK : ARE YOU FREQUENTLY EXPOSED TO LATEX PRODUCTS IN YOUR OCCUPATION?NO ADVANCE DIRECTIVE ADVANCE DIRECTIVE DISCUSSED WITH PATIENT:YES PT HAS NO ADVANCED DIRECTIVES, DECLINES INFORMATION OR ASSISTANCE AT THIS TIME 06/05/19 LANGUAGE LANGUAGES SPOKEN:DIVEHI RECREATIONAL DRUG USE DRUG USE?NO LEARNING BARRIERS / SPECIAL NEEDS BARRIERS TO LEARNING?NO HEARING IMPAIRED?NO VISION IMPAIRED?YES :CORRECTIVE LENSES COGNITIVELY IMPAIRED?NO READINESS TO LEARN?YES REVIEWED 02/12/19 1115 LASREVIEWED WITH PATEINT 05/06/19 1040 NLJREVIEWED WITH PATIENT 06/05/19 1508 BV. HOSPITALIZATION/MAJOR DIAGNOSTIC PROCEDURE SURGERY REVIEW OF SYSTEMS REVIEWED BY: PROVIDER: . CONSTITUTIONAL: ANY CHANGE IN YOUR MEDICAL CONDITION? NO . CHILLS NO . FEVER NO . INFECTION: DO YOU HAVE NEW INFECTIONS? NO . DO YOU HAVE HISTORY OF MRSA? NO . MUSCULOSKELETAL: ANY NEW PATTERNS OF PAIN OR NUMBNESS? YES, INCREASING INTENSITY OVER THE PAST MONTH . GASTROENTEROLOGY: ANY NEW CHANGE IN BOWEL CONTROL? NO . GENITOURINARY: ANY NEW CHANGE IN BLADDER CONTROL? NO . IS THERE A CHANCE YOU COULD BE ? NO . HEMATOLOGY/LYMPH: DO YOU TAKE ANY BLOOD THINNERS? (FOR EXAMPLE- COUMADIN, PLAVIX, AGGRENOX, PLATEL, PRADAXA, OR XARELTO) NO . WHEN WAS YOUR LAST DOSE? DATE: TIME: . NEUROLOGY: HAVE YOU FALLEN IN THE PAST 12 MONTHS? YES, PT STATES HE HAS FREQUENT FALLS DUE TO PAIN AND WEAKNESS. DENIES ANY INJURIES WITH ANY FALL . ANY NEW EXTREMITY NUMBNESS OR WEAKNESS? NO . CARDIOLOGY: DO YOU HAVE A PACEMAKER OR DEFIBRILLATOR? NO . RESPIRATORY: HAVE YOU BEEN SICK IN THE PAST WEEK? NO . FEVER NO . FLU LIKE SYMPTOMS? NO . COUGH NO . INTEGUMENTARY: DO YOU HAVE ANY RASHES OR OPEN SORES? NO . ALLERGIC/IMMUNO: ARE YOU ALLERGIC TO IV DYE? NO . ANY NEW ALLERGIES? NO . PSYCHIATRIC: DO YOU HAVE THOUGHTS OF HURTING YOURSELF OR SOMEONE ELSE? NO . ARE YOU ABUSED, NEGLECTED, OR IN AN UNSAFE ENVIRONMENT? NO . ENDOCRINOLOGY: ARE YOU DIABETIC? NO . OTHER: DO YOU NEED ANY PRESCRIPTIONS? NO . IF YES, PLEASE LIST: ____ . ANY NEW PROBLEMS WITH YOUR MEDICATIONS? NO . WHEN DID YOU LAST EAT? 06/04/19 2030 . WHEN DID YOU LAST DRINK? 06/05/19 1100 . WHAT DID YOU LAST DRINK? WATER . NAME OF PERSON DRIVING YOU HOME? HOOD POLLARD . DO YOU HAVE ANY OTHER QUESTIONS OR CONCERNS NO . VITAL SIGNS WT 168.2 LBS, HT 72 IN, BMI 22.81 INDEX, BP 130/77 MM HG, HR 68 /MIN, RR 18 /MIN, TEMP 97.5 F, OXYGEN SAT % 97%, NA INITIALS SC 14:13, REVIEWED BY: BV. ASSESSMENTS MYALGIA, OTHER SITE - M79.18 (PRIMARY) TREATMENT OTHERS CLINICAL NOTES: I DISCUSSED THE LUMBAR MRI DONE ON 06/03/[address] BAXTER THE PETERSON EDEMA SHOWN AT L2-L3 REPRESENTS DEGENERATIVE PROCESS ASSOCIATED WITH THE BULGING DISC AND DISC PROTRUSION. . PROCEDURES PN TRIGGER POINT INJECTION WITH STEROIDS PRE PROCEDURE DIAGNOSIS 1. MYALGIA 2. PAIN AT BILATERAL LOWER BACK POST PROCEDURE DIAGNOSIS 1. MYALGIA 2. PAIN AT BILATERAL LOWER BACK PROCEDURE TRIGGER POINT INJECTION AT RIGHT AND LEFT LOWER BACK AREA SURGEON DR. CINDY ESCOBAR POULTRY TENDER NONE ANESTHESIA LOCAL PRE PROCEDURE NOTE THE PATIENT HAS A HISTORY OF CHRONIC PAIN AT THE RIGHT AND LEFT LOWER BACK AREA. I EVALUATED THE PATIENT AND REVIEWED THE CHART. THERE IS EVIDENCE OF BANDS OF TISSUE WITH RESTRICTION OF MOVEMENT AND PRESENCE OF TRIGGER POINT AT THE AFFECTED AREA. I WENT OVER THE RISKS, ALTERNATIVES, AND BENEFITS ASSOCIATED WITH THIS PROCEDURE. THE PATIENT WOULD LIKE TO PROCEED AND GIVE CONSENT TO PERFORMED THE PROCEDURE. THE PATIENT DENIES UNEXPLAINABLE WEIGHT LOSS, FEVER, CHILLS, OR NEW CHANGES IN URINARY OR BOWEL CONTROL DESCRIPTION OF PROCEDURE THE PATIENT WAS BROUGHT TO THE PROCEDURE ROOM AND PLACED IN THE SITTING POSITION. THE AREA WAS CLEANED WITH ALCOHOL. THE PROCEDURE WAS DONE USING ASEPTIC STERILE TECHNIQUE. I CHECKED LATERALITY AND THE LEVEL WHERE THE PROCEDURE WAS GOING TO BE PERFORMED WITH THE PATIENT AND THE SUPPORTING STAFF AT THE MOMENT OF THE TIME OUT IN THE PROCEDURE ROOM. USING A 25-GAUGE NEEDLE, TRIGGER POINTS WERE INJECTED AT THE RIGHT AND LEFT LOWER BACK AREA WITH A TOTAL OF 40 ML OF BUPIVACAINE 0.25% AND KENALOG 40 MG. THERE WAS NO EVIDENCE OF BLOOD, PARESTHESIA OR CEREBROSPINAL FLUID DURING THE PROCEDURE. THE PATIENT WAS SENT TO THE RECOVERY ROOM. THE PATIENT WAS MOVING THE EXTREMITIES AND DOING WELL. THERE WAS NO COMPLICATION DURING THE PROCEDURE POST PROCEDURE NOTE THE PATIENT WILL BE SEEN IN A FOLLOW UP IN THE NEXT FEW WEEKS. INSTRUCTIONS WERE GIVEN, QUESTIONS WERE ANSWERED, AND THE PATIENT EXPRESSED UNDERSTANDING AND AGREES WITH THE PLAN. I, MIS ESPOSITO, DOCUMENTED THE ABOVE INFORMATION ACTING A SCRIBE FOR DR. ESCOBAR. I HAVE REVIEWED THE ABOVE DOCUMENT, WRITTEN BY MIS PRETTY AND I VERIFY THAT IT IS ACCURATE. PROCEDURE CODES 54417 INJ TRIGGER POINT / [facility] [place] DISPOSITION & COMMUNICATION FOLLOW UP 3 WEEKS ELECTRONICALLY SIGNED BY CINDY ESCOBAR MD, MD ON 06/15/2019 AT 12:23 PM EDT DISCLAIMER : THIS IS A VISIT SUMMARY EXTRACTED FROM THE [employer] CHART. IT IS NOT A COPY OF THE [employer] PROGRESS NOTE. TIMUR
== END ==
LOC: M PAIN 14:15
PROVIDERS: ATTEND Anesthesiology
DX: M79.18 Myalgia, other site (principal); I10 Essential (primary) hypertension; M54.5 Low back pain; F17.210 Nicotine dependence, cigarettes, uncomplicated; Z90.49 Acquired absence of other specified parts of digestive tract; Z85.820 Personal history of malignant melanoma of skin; Z79.891 Long term (current) use of opiate analgesic; Z79.899 Other long term (current) drug therapy; Z88.6 Allergy status to analgesic agent
CPT/HCPCS: 20552; J3301

== ENCOUNTER → 2019-06-19 | Outpatient (CLI) | payer OTHER | LOC: M PAIN 08:45 | PROVIDERS: ATTEND Family Medicine | DX: M79.18 Myalgia, other site (principal); I10 Essential (primary) hypertension; M54.5 Low back pain; F17.210 Nicotine dependence, cigarettes, uncomplicated; Z79.891 Long term (current) use of opiate analgesic; Z88.6 Allergy status to analgesic agent ==

== ENCOUNTER → 2019-08-23 | Outpatient (REF) | payer OTHER | LOC: M LAB REF 12:04 | PROVIDERS: ATTEND Physician Assistant Medical | DX: L02.91 Cutaneous abscess, unspecified (principal) ==

== ENCOUNTER → 2019-08-28 | Outpatient (REF) | payer OTHER | LOC: M LAB REF 16:41 | PROVIDERS: ATTEND Physician Assistant | DX: L02.416 Cutaneous abscess of left lower limb (principal) ==

== ENCOUNTER → 2019-10-07 | Outpatient (REF) | payer OTHER | LOC: M LAB REF 14:43 | PROVIDERS: ATTEND Physician Assistant Medical | DX: L02.212 Cutaneous abscess of back [any part, except buttock and flank] (principal) ==

== ENCOUNTER → 2019-10-07 | Outpatient (CLI) | payer OTHER ==
[~2019-10-07] MED LIST changes: -BUPIVACAINE HCL 0.25% 10 ML VIAL As Ordered ONE; +ISOVUE-M 300 61% 15ML VIAL (Q9967) As Ordered ONE; +LIDOCAINE 1% SDV INJ 30 ML VIAL As Ordered ONE
--- NOTE | 2019-10-17 03:33 | ECWPNPC ---
PATIENT NAME: DEVIN POLLARD : 1960 GENDER: MALE VISIT DATE: 10/07/2019 DISCHARGE DATE: 10/07/19 1058 VISIT LOCKED DATE TIME: PHYSICIAN: CINDY ESCOBAR MD RESOURCE: CINDY ESCOBAR MD REASON FOR APPOINTMENT 1. THERAPEUTIC LUMBAR FACET L4-L5 L5-S1 HISTORY OF PRESENT ILLNESS HISTORY OF PRESENT ILLNESS: PAIN THE PATIENT DESCRIBES THE PAIN... 59 YEAR OLD MALE PATIENT WITH A HISTORY OF CHRONIC LOW BACK PAIN. THE PATIENT DESCRIBES THE PAIN ACHING, BURNING, SHARP, STABBING, SHOOTING, VARIES, DAILY, INTERMITTENT INTENSITY, AND CONTINUOUS WITH A PAIN SCORE OF 2-8/10 DEPENDING ON PHYSICAL ACTIVITY. 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 , PATIENT DENIES UNEXPLAINABLE WEIGHT LOSS, FEVER, CHILLS, NEW CHANGES ON HIS URINARY OR BOWEL CONTROL. FALL RISK SCREENING: SCREENING :NO FALLS REPORTED IN THE LAST YEAR CURRENT MEDICATIONS TAKING AZELASTINE HCL 0.1 % SOLUTION 2 PUFFS IN EACH NOSTRIL NASALLY TWICE A DAY, NOTES: TAKES NEEDED 10/05 TAKING AMLODIPINE BESYLATE 10 MG TABLET 1 TABLET ORALLY ONCE A DAY, NOTES: 10/07 539 TAKING LISINOPRIL 40 MG TABLET 1 TABLET ORALLY ONCE A DAY, NOTES: 10/06 1699 TAKING FERROUS SULFATE 325 MG CAPSULE 1 CAP ORALLY DAILY, NOTES: NONE RECENT TAKING MAGNESIUM OXIDE 400 MG TABLET 1 TABLET NEEDED ORALLY ONCE A DAY, NOTES: NONE RECENT TAKING MULTIVITAMIN - TABLET CHEWABLE 1 CAP ORALLY DAILY, NOTES: 10/06 529 TAKING VITAMIN B COMPLEX - TABLET 1 TAB ORALLY DAILY, NOTES: NONE RECENT TAKING VITAMIN D3 1000 UNIT CAPSULE 2 CAPSULE ORALLY ONCE A DAY, NOTES: NONE RECENT TAKING TYLENOL EXTRA STRENGTH 500 MG TABLET 2 TABLET NEEDED ORALLY EVERY 6 HRS, NOTES: 10/07 539 TAKING LIDOCAINE 5 % PATCH 1 PATCH TO SKIN REMOVE AFTER 12 HOURS EXTERNALLY ONCE A DAY, NOTES: NONE RECENT TAKING GABAPENTIN 300 MG CAPSULE 1 CAPSULE ORALLY THREE TIMES DAILY, NOTES: 10/07 539 TAKING NUCYNTA ER 200 MG TABLET EXTENDED RELEASE 12 HOUR 1 TABLET ORALLY EVERY 12 HRS, NOTES: 10/07 539 NOT-TAKING NUCYNTA 75 MG TABLET 1 TABLET ORALLY THREE TIMES DAILY NEEDED NOT-TAKING HYDROCODONE-ACETAMINOPHEN 5-300 MG TABLET DIRECTED ORALLY MDD=4 NOT-TAKING MAY USE CBD OIL MEDICATION LIST REVIEWED AND RECONCILED WITH THE PATIENT PAST MEDICAL HISTORY HTN LBP MYALGIA ALLERGIES NSAIDS: ANAPHYLAXIS - ALLERGY SURGICAL HISTORY APPENDECTOMY 1973 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 3 SON(S) , 1 DAUGHTER(S) - HEALTHY. SOCIAL HISTORY GENERAL: TOBACCO USE ARE YOU A:CURRENT SMOKER TYING TO QUIT, HAS CUT DOWN TO 5 -10/ DAY ARE YOU INTERESTED IN QUITTING?NOT READY TO QUIT COUNSELED THE PATIENT ON SMOKING EFFECTS, EDUCATION [id number] PATIENT COUNSELED ON THE DANGERS OF TOBACCO USE AND URGED TO QUIT:10/07/2019 SMOKING CESSATION INFORMATION GIVEN REFUSED PAIN CLINIC PFS, CLERGY, PUBLIC HEALTH REFERRALS PFS REFERRAL NEEDED?NO CLERGY REFERRAL NEEDED?NO PUBLIC HEALTH REFERRAL NEEDED?NO WAS THE PROVIDER NOTIFIED OF ANY PERTINENT INFO? N/A HAS THE PATIENT BEEN EDUCATED REGARDING HIS/HER PLAN OF CARE?YES HAS THE PATIENT BEEN EDUCATED REGARDING PAIN, THE RISK FOR PAIN, THE IMPORTANCE OF EFFECTIVE PAIN MANAGEMENT, AND THE PAIN ASSESSMENT PROCESS?YES LATEX QUESTIONNAIRE LATEX ALLERGY : HAVE YOU EVER DEVELOPED ANY TYPE OF REACTION AFTER HANDLING LATEX PRODUCTS SUCH RUBBER GLOVES, CONDOMS, DIAPHRAGMS, BALLOONS, SOCKS, OR UNDERWEAR?NO LATEX ALLERGY : HAVE YOU EVER DEVELOPED ANY TYPE OF REACTION DURING OR AFTER DENTAL APPOINTMENT, VAGINAL/RECTAL EXAMINATION, SURGICAL PROCEDURE, OR ANY OTHER EXPOSURE?NO DATE ASKED : 08/21/2019 LATEX RISK : HAVE YOU EVER HAD ANY DIFFICULTY BREATHING OR HIVES AFTER EATING OR HANDLING ANY FRUITS, OR VEGETABLES; SUCH KIWI, BANANAS, STONE FRUITS, OR CHESTNUTSNO LATEX RISK : DO YOU HAVE A PREVIOUS PERSONAL HISTORY OF MORE THAN NINE SURGERIES, SPINA BIFIDA, OR REPEATED CATHERIZATIONS? NO LATEX RISK : ARE YOU FREQUENTLY EXPOSED TO LATEX PRODUCTS IN YOUR OCCUPATION?NO ADVANCE DIRECTIVE ADVANCE DIRECTIVE DISCUSSED WITH PATIENT:YES 10/07/2019 PT HAS NO ADVANCED DIRECTIVES, AND HE DECLINES INFORMATION ON HCP AT THIS TIME. AD EDUCATION LEVEL OF EDUCATION:NOT FINISHED [employer] [id number] [employer] WIT[employer] LANGUAGE LANGUAGES SPOKEN:MONGOLIAN DOMESTIC VIOLENCE DO YOU FEEL SAFE IN YOUR ENVIRONMENT?YES RECREATIONAL DRUG USE DRUG USE?NO OCCUPATION: [employer] FOR THE [employer]. LEARNING BARRIERS / SPECIAL NEEDS BARRIERS TO LEARNING?NO HEARING IMPAIRED?NO VISION IMPAIRED?YES COGNITIVELY IMPAIRED?NO :CORRECTIVE LENSES READINESS TO LEARN?YES LEARNING PREFERENCES?NO LEARNING CAPABILITIES PRESENT?YES EMOTIONAL BARRIERS?NO SPECIAL DEVICES?NO SENIOR CATERING SALES MANAGER NEEDED?NO REVIEWED 02/12/19 1115 LASREVIEWED WITH PATEINT 05/06/19 1040 NLJREVIEWED WITH PATIENT 06/05/19 1508 BVREVIEWED WITH PATIENT 08-21-19 DS. HOSPITALIZATION/MAJOR DIAGNOSTIC PROCEDURE SURGERY REVIEW OF SYSTEMS REVIEWED BY: PROVIDER: CINDY ESCOBAR MD . CONSTITUTIONAL: ANY CHANGE IN YOUR MEDICAL CONDITION? NO . CHILLS NO . FEVER NO . INFECTION: DO YOU HAVE NEW INFECTIONS? NO . DO YOU HAVE HISTORY OF MRSA? NO . MUSCULOSKELETAL: ANY NEW PATTERNS OF PAIN OR NUMBNESS? YES, PAIN AND NUMBNESS HAS EXTENDED DOWN LEFT LEG, GRADUALLY INCREASING OVER THE PAST COUPLE OF MONTHS . GASTROENTEROLOGY: ANY NEW CHANGE IN BOWEL CONTROL? NO . GENITOURINARY: ANY NEW CHANGE IN BLADDER CONTROL? NO . IS THERE A CHANCE YOU COULD BE ? NO . HEMATOLOGY/LYMPH: DO YOU TAKE ANY BLOOD THINNERS? (FOR EXAMPLE- COUMADIN, PLAVIX, AGGRENOX, PLATEL, PRADAXA, OR XARELTO) NO . WHEN WAS YOUR LAST DOSE? DATE: TIME: . NEUROLOGY: HAVE YOU FALLEN IN THE PAST 12 MONTHS? YES X 5 THE LAST 3 IN THE PAST 2 WEEKS-HE HAS LOST SENSATION IN THE BOTTOM OF HIS FEET AND THIS COMBINED WITH HIS SUDDEN INCREASE IN PAIN CAUSES HIM TO FALL. HAS HAD AN INCREASE IN BACK PAIN. WAS NOT EVALUATED AFTER . ANY NEW EXTREMITY NUMBNESS OR WEAKNESS? NO . CARDIOLOGY: DO YOU HAVE A PACEMAKER OR DEFIBRILLATOR? NO . RESPIRATORY: HAVE YOU BEEN SICK IN THE PAST WEEK? NO . FEVER NO . FLU LIKE SYMPTOMS? NO . COUGH NO . INTEGUMENTARY: DO YOU HAVE ANY RASHES OR OPEN SORES? NO . ALLERGIC/IMMUNO: ARE YOU ALLERGIC TO IV DYE? NO . ANY NEW ALLERGIES? NO . PSYCHIATRIC: DO YOU HAVE THOUGHTS OF HURTING YOURSELF OR SOMEONE ELSE? NO . ARE YOU ABUSED, NEGLECTED, OR IN AN UNSAFE ENVIRONMENT? NO . ENDOCRINOLOGY: ARE YOU DIABETIC? NO . OTHER: DO YOU NEED ANY PRESCRIPTIONS? NO . IF YES, PLEASE LIST: ____ . ANY NEW PROBLEMS WITH YOUR MEDICATIONS? NO . WHEN DID YOU LAST EAT? 10/06 2100 . WHEN DID YOU LAST DRINK? 10/07 0650 . WHAT DID YOU LAST DRINK? SIP OF WATER . NAME OF PERSON DRIVING YOU HOME? HOOD POLLARD . DO YOU HAVE ANY OTHER QUESTIONS OR CONCERNS NO PT HAS NOT HAD ANY VACCINES IN THE PAST 30 DAYS WHEN LISTENING TO HEART AND LUNGS IT WAS NOTED THAT HE HAD A LG RAISED REDDENED AREA LEFT THORACIC AREA. WHEN TOUCHED PUSS STARTED TO COME OUT. DR. ESCOBAR AWARE AND HE WILL BE IN TO EVALUATE PT. DR. ESCOBAR EVALUATED PT. AND IT WAS DECIDED TO POSTPONE PROCEDURE AND HAVE PT SEEN AT OR BY PCP. . VITAL SIGNS WT 185.4 LBS, HT 72 IN, BMI 25.14 INDEX, BP 137/73 MM HG, HR 65 /MIN, RR 16 /MIN, TEMP 98.7 F, OXYGEN SAT % 98%, SAFE IN ENV? (Y/N) Y, NA INITIALS AW [id number], REVIEWED BY: AD. EXAMINATION GENERAL EXAMINATION: PATIENT IS ALERT O X 3 AND COOPERATIVE. TENDERNESS IN THE LOW BACK OVER THE PARASPINAL MUSCLE GROUP. PAIN INCREASES OVER THE LUMBAR FACET JOINTS WITH EXTENSION AND LATERAL ROTATION OF THE BACK. MRI OF THE LUMBAR SPINE DONE ON 06/03/2019 SHOWS FACET ARTHROPATHY CHANGES. ASSESSMENTS SPONDYLOSIS WITHOUT MYELOPATHY OR RADICULOPATHY, LUMBAR REGION - M47.816 (PRIMARY) TREATMENT SPONDYLOSIS WITHOUT MYELOPATHY OR RADICULOPATHY, LUMBAR REGION CLINICAL NOTES: WE DISCUSSED SEVERAL ISSUES WITH MR. POLLARD'S PAIN MANAGEMENT CASE. WE HAD PLANNED TO DO A LUMBAR FACET THERAPEUTIC FACET BLOCK, HOWEVER THE PATIENT HAS A SUPPURATING ABSCESS OVER THE THORACIC BACK AREA. THE PATIENT AGREED HE WOULD VISIT URGENT CARE TO HAVE IT TREATED. WE WILL SCHEDULE THE PATIENT TO COME BACK IN SEVERAL WEEKS FOR HIS PROCEDURE. INSTRUCTIONS WERE GIVEN, QUESTIONS WERE ANSWERED, PATIENT REPORTS UNDERSTANDING AND AGREES WITH THE PLAN. I, PIOTR MCLAIN, DOCUMENTED THE ABOVE INFORMATION ACTING A SCRIBE FOR DR. ESCOBAR. I HAVE REVIEWED THE ABOVE DOCUMENT, WRITTEN BY PIOTR PRETTY AND I VERIFY THAT IT IS ACCURATE. . PROCEDURE CODES FA211 ESTABILISHED PATIENT [facility] FACILITY CHARGE Q3288 CURRENT MEDS W/DOSAGES DOCUMENTED [id number] PAIN ASSESS POS TOOL F/U PLAN DOC DISPOSITION & COMMUNICATION ELECTRONICALLY SIGNED BY CINDY ESCOBAR MD, MD ON 10/16/2019 AT 05:29 PM EST DISCLAIMER : THIS IS A VISIT SUMMARY EXTRACTED FROM THE [employer] CHART. IT IS NOT A COPY OF THE [employer] PROGRESS NOTE. TIMUR
== END ==
LOC: M PAIN 09:30
PROVIDERS: ATTEND Anesthesiology
DX: M47.816 Spondylosis without myelopathy or radiculopathy, lumbar region (principal); G89.29 Other chronic pain; I10 Essential (primary) hypertension; F17.210 Nicotine dependence, cigarettes, uncomplicated; Z88.6 Allergy status to analgesic agent; Z91.81 History of falling; Z79.891 Long term (current) use of opiate analgesic; Z79.899 Other long term (current) drug therapy

== ENCOUNTER → 2019-10-22 | Outpatient (CLI) | payer OTHER ==
--- NOTE | 2019-10-22 16:50 | REP ---
Partial lumbar spine series: Two views . History: Injection procedure for pain. 40 seconds of fluoroscopy time is reported. Findings: A sequence of two fluoroscopically obtained last image hold procedural spot radiographs of the lumbar spine document needle position and contrast injection associated with injection procedure. Electronically Signed by Jose Nova MD 10/22/2019 04:42 P
--- NOTE | 2019-11-11 04:26 | ECWPNPC ---
PATIENT NAME: DEVIN POLLARD : 1960 GENDER: MALE VISIT DATE: 10/22/2019 DISCHARGE DATE: 10/22/19 1650 VISIT LOCKED DATE TIME: PHYSICIAN: CINDY ESCOBAR MD RESOURCE: CINDY ESCOBAR MD REASON FOR APPOINTMENT 1. THERA LUMBAR FACET L4-L5 L5-S1 HISTORY OF PRESENT ILLNESS HISTORY OF PRESENT ILLNESS: PAIN THE PATIENT DESCRIBES THE PAIN... FALL RISK SCREENING: SCREENING :NO FALLS REPORTED IN THE LAST YEAR CURRENT MEDICATIONS TAKING AZELASTINE HCL 0.1 % SOLUTION 2 PUFFS IN EACH NOSTRIL NASALLY TWICE A DAY, NOTES: 3 DAYS AGO TAKING AMLODIPINE BESYLATE 10 MG TABLET 1 TABLET ORALLY ONCE A DAY, NOTES: 10/22/19 TAKING LISINOPRIL 40 MG TABLET 1 TABLET ORALLY ONCE A DAY, NOTES: 10/21/19 TAKING FERROUS SULFATE 325 MG CAPSULE 1 CAP ORALLY DAILY, NOTES: 10/21/19 TAKING MAGNESIUM OXIDE 400 MG TABLET 1 TABLET NEEDED ORALLY ONCE A DAY, NOTES: 10/21/19 TAKING MULTIVITAMIN - TABLET CHEWABLE 1 CAP ORALLY DAILY, NOTES: 10/21/19 TAKING VITAMIN B COMPLEX - TABLET 1 TAB ORALLY DAILY, NOTES: 10/21/19 TAKING VITAMIN D3 1000 UNIT CAPSULE 2 CAPSULE ORALLY ONCE A DAY, NOTES: 10/21/19 TAKING TYLENOL EXTRA STRENGTH 500 MG TABLET 2 TABLET NEEDED ORALLY EVERY 6 HRS, NOTES: 10/22/19 TAKING LIDOCAINE 5 % PATCH 1 PATCH TO SKIN REMOVE AFTER 12 HOURS EXTERNALLY ONCE A DAY, NOTES: SUNDAY TAKING GABAPENTIN 300 MG CAPSULE 1 CAPSULE ORALLY THREE TIMES DAILY, NOTES: 10/22/19 TAKING NUCYNTA ER 200 MG TABLET EXTENDED RELEASE 12 HOUR 1 TABLET ORALLY EVERY 12 HRS, NOTES: 10/22/19 NOT-TAKING NUCYNTA 75 MG TABLET 1 TABLET ORALLY THREE TIMES DAILY NEEDED NOT-TAKING HYDROCODONE-ACETAMINOPHEN 5-300 MG TABLET DIRECTED ORALLY MDD=4 NOT-TAKING MAY USE CBD OIL MEDICATION LIST REVIEWED AND RECONCILED WITH THE PATIENT PAST MEDICAL HISTORY HTN LBP MYALGIA ALLERGIES NSAIDS: ANAPHYLAXIS - ALLERGY SURGICAL HISTORY APPENDECTOMY 1973 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 3 SON(S) , 1 DAUGHTER(S) - HEALTHY. SOCIAL HISTORY GENERAL: TOBACCO USE ARE YOU A:CURRENT SMOKER TYING TO QUIT, HAS CUT DOWN TO 5 -10/ DAY ARE YOU INTERESTED IN QUITTING?NOT READY TO QUIT COUNSELED THE PATIENT ON SMOKING EFFECTS, EDUCATION [id number]/12/2020 PATIENT COUNSELED ON THE DANGERS OF TOBACCO USE AND URGED TO QUIT:10/07/2019 SMOKING CESSATION INFORMATION GIVEN REFUSED PAIN CLINIC PFS, CLERGY, PUBLIC HEALTH REFERRALS PFS REFERRAL NEEDED?NO CLERGY REFERRAL NEEDED?NO PUBLIC HEALTH REFERRAL NEEDED?NO WAS THE PROVIDER NOTIFIED OF ANY PERTINENT INFO? N/A HAS THE PATIENT BEEN EDUCATED REGARDING HIS/HER PLAN OF CARE?YES HAS THE PATIENT BEEN EDUCATED REGARDING PAIN, THE RISK FOR PAIN, THE IMPORTANCE OF EFFECTIVE PAIN MANAGEMENT, AND THE PAIN ASSESSMENT PROCESS?YES LATEX QUESTIONNAIRE LATEX ALLERGY : HAVE YOU EVER DEVELOPED ANY TYPE OF REACTION AFTER HANDLING LATEX PRODUCTS SUCH RUBBER GLOVES, CONDOMS, DIAPHRAGMS, BALLOONS, SOCKS, OR UNDERWEAR?NO LATEX ALLERGY : HAVE YOU EVER DEVELOPED ANY TYPE OF REACTION DURING OR AFTER DENTAL APPOINTMENT, VAGINAL/RECTAL EXAMINATION, SURGICAL PROCEDURE, OR ANY OTHER EXPOSURE?NO LATEX RISK : HAVE YOU EVER HAD ANY DIFFICULTY BREATHING OR HIVES AFTER EATING OR HANDLING ANY FRUITS, OR VEGETABLES; SUCH KIWI, BANANAS, STONE FRUITS, OR CHESTNUTSNO LATEX RISK : DO YOU HAVE A PREVIOUS PERSONAL HISTORY OF MORE THAN NINE SURGERIES, SPINA BIFIDA, OR REPEATED CATHERIZATIONS? NO LATEX RISK : ARE YOU FREQUENTLY EXPOSED TO LATEX PRODUCTS IN YOUR OCCUPATION?NO DATE ASKED : 08/21/2019 ADVANCE DIRECTIVE ADVANCE DIRECTIVE DISCUSSED WITH PATIENT:YES PT HAS NO ADVANCED DIRECTIVES, AND HE DECLINES INFORMATION ON HCP AT THIS TIME. 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 LEARNING BARRIERS / SPECIAL NEEDS BARRIERS TO LEARNING?NO HEARING IMPAIRED?NO VISION IMPAIRED?YES COGNITIVELY IMPAIRED?NO :CORRECTIVE LENSES READINESS TO LEARN?YES LEARNING PREFERENCES?NO LEARNING CAPABILITIES PRESENT?YES EMOTIONAL BARRIERS?NO SPECIAL DEVICES?NO DIESEL ENGINE ENGINEER NEEDED?NO REVIEWED 02/12/19 1115 LASREVIEWED WITH PATEINT 05/06/19 1040 NLJREVIEWED WITH PATIENT 06/05/19 1508 BVREVIEWED WITH PATIENT 08-21-19 DS. HOSPITALIZATION/MAJOR DIAGNOSTIC PROCEDURE SURGERY REVIEW OF SYSTEMS REVIEWED BY: PROVIDER: . CONSTITUTIONAL: ANY CHANGE IN YOUR MEDICAL CONDITION? NO . CHILLS NO . FEVER NO . INFECTION: DO YOU HAVE NEW INFECTIONS? NO . DO YOU HAVE HISTORY OF MRSA? NO . MUSCULOSKELETAL: ANY NEW PATTERNS OF PAIN OR NUMBNESS? NO . GASTROENTEROLOGY: ANY NEW CHANGE IN BOWEL CONTROL? NO . GENITOURINARY: ANY NEW CHANGE IN BLADDER CONTROL? NO . IS THERE A CHANCE YOU COULD BE ? NO . HEMATOLOGY/LYMPH: DO YOU TAKE ANY BLOOD THINNERS? (FOR EXAMPLE- COUMADIN, PLAVIX, AGGRENOX, PLATEL, PRADAXA, OR XARELTO) NO . WHEN WAS YOUR LAST DOSE? DATE: TIME: . NEUROLOGY: HAVE YOU FALLEN IN THE PAST 12 MONTHS? YES, PRIOR TO LAST VISIT . ANY NEW EXTREMITY NUMBNESS OR WEAKNESS? NO . CARDIOLOGY: DO YOU HAVE A PACEMAKER OR DEFIBRILLATOR? NO . RESPIRATORY: HAVE YOU BEEN SICK IN THE PAST WEEK? NO . FEVER NO . FLU LIKE SYMPTOMS? NO . COUGH NO . INTEGUMENTARY: DO YOU HAVE ANY RASHES OR OPEN SORES? NO . ALLERGIC/IMMUNO: ARE YOU ALLERGIC TO IV DYE? NO . ANY NEW ALLERGIES? NO . PSYCHIATRIC: DO YOU HAVE THOUGHTS OF HURTING YOURSELF OR SOMEONE ELSE? NO . ARE YOU ABUSED, NEGLECTED, OR IN AN UNSAFE ENVIRONMENT? NO . ENDOCRINOLOGY: ARE YOU DIABETIC? NO . OTHER: DO YOU NEED ANY PRESCRIPTIONS? NO . IF YES, PLEASE LIST: ____ . ANY NEW PROBLEMS WITH YOUR MEDICATIONS? NO . WHEN DID YOU LAST EAT? 10/21/19 1915 . WHEN DID YOU LAST DRINK? 10/22/19 1130 . WHAT DID YOU LAST DRINK? APPLE JUICE . NAME OF PERSON DRIVING YOU HOME? HOOD . DO YOU HAVE ANY OTHER QUESTIONS OR CONCERNS NO . VITAL SIGNS WT 182.0 LBS, HT 72 IN, BMI 24.68 INDEX, BP 129/71 MM HG, HR 62 /MIN, RR 18 /MIN, TEMP 98.3 F, OXYGEN SAT % 97%, NA INITIALS AW 1429, REVIEWED BY: EM. ASSESSMENTS SPONDYLOSIS WITHOUT MYELOPATHY OR RADICULOPATHY, LUMBAR REGION - M47.816 (PRIMARY) SPONDYLOSIS WITHOUT MYELOPATHY OR RADICULOPATHY, LUMBOSACRAL REGION - M47.817 TREATMENT SPONDYLOSIS WITHOUT MYELOPATHY OR RADICULOPATHY, LUMBAR REGION [facility] FACET BLOCK (PAIN)[id number] PROCEDURES PN LUMBAR FACET BLOCK THERAPEUTIC PRE PROCEDURE DIAGNOSIS LUMBAR SPONDYLOSIS, LUMBOSACRAL SPONDYLOSIS POST PROCEDURE DIAGNOSIS LUMBAR SPONDYLOSIS, LUMBOSACRAL SPONDYLOSIS PROCEDURE BILATERAL L4-L5 AND L5-S1 LUMBAR FACET THERAPEUTIC BLOCK SURGEON DR. CINDY ESCOBAR COSTUMER ASSISTANT NONE ANESTHESIA LOCAL PRE PROCEDURE NOTE THE PATIENT HAS A HISTORY OF CHRONIC LOW BACK PAIN. I EVALUATED THE PATIENT AND REVIEWED THE CHART. I WENT OVER THE RISKS, ALTERNATIVES, AND BENEFITS ASSOCIATED WITH THIS PROCEDURE. THE PATIENT WOULD LIKE TO PROCEED AND GIVES CONSENT TO PERFORM THE PROCEDURE. THE PATIENT DENIES UNEXPLAINABLE WEIGHT LOSS, FEVER, CHILLS, OR NEW CHANGES IN URINARY OR BOWEL CONTROL DESCRIPTION OF PROCEDURE THE PATIENT WAS BROUGHT TO THE PROCEDURE ROOM AND PLACED IN THE PRONE POSITION. THE LUMBOSACRAL AREA WAS CLEANED WITH CHLORAPREP SOLUTION AND DRAPED ASEPTICALLY. THE PROCEDURE WAS DONE UNDER STERILE CONDITIONS. I CHECKED LATERALITY AND THE LEVEL WHERE THE PROCEDURE WAS GOING TO BE PERFORMED WITH THE PATIENT AND THE SUPPORTING STAFF AT THE MOMENT OF THE TIME OUT IN THE PROCEDURE ROOM. UNDER FLUOROSCOPIC GUIDANCE, THE TARGET POINT WAS SELECTED AT THE RIGHT AND LEFT L4-L5 AND RIGHT AND LEFT L5-S1 FACET JOINTS. TARGET POINT WAS SELECTED AFTER LATERAL ROTATION AND TILT OF THE MAGNIFIER OF THE C-ARM. LIDOCAINE 0.5% WAS USED TO NUMB THE SKIN AND THE SUBCUTANEOUS TISSUE BELOW IT. SPINAL NEEDLES, 22-GAUGE, WERE ADVANCED UNDER FLUOROSCOPIC GUIDANCE AND FOLLOWING PATIENT FEEDBACK UNTIL THE TARGETS WERE TOUCHED. THE POSITION OF THE NEEDLES WAS VERIFIED WITH AP AND LATERAL VIEWS. AFTER PROPER POSITION OF THE NEEDLES WAS ACHIEVED, ISOVUE-M DYE 30% 0.1 ML WAS INJECTED SHOWING ADEQUATE SPREAD OF THE DYE. THEN A SOLUTION OF 1.9 ML OF BUPIVACAINE 0.125% OF KENALOG 10 MG WAS INJECTED AT EACH SITE. THERE WAS NO EVIDENCE OF BLOOD, PARESTHESIA OR CEREBROSPINAL FLUID DURING THE PROCEDURE. THE PATIENT WAS SENT TO THE RECOVERY ROOM. THE PATIENT WAS MOVING THE EXTREMITIES AND DOING WELL. THERE WAS NO COMPLICATION DURING THE PROCEDURE. FLUOROSCOPY TIME WAS 40 SECONDS POST PROCEDURE NOTE THE PATIENT WILL BE SEEN IN A FOLLOW UP IN THE NEXT FEW WEEKS. INSTRUCTIONS WERE GIVEN, QUESTIONS WERE ANSWERED, AND THE PATIENT EXPRESSED UNDERSTANDING AND AGREES WITH THE PLAN. I, PIOTR MCLAIN, DOCUMENTED THE ABOVE INFORMATION ACTING A SCRIBE FOR DR. ESCOBAR. I HAVE REVIEWED THE ABOVE DOCUMENT, WRITTEN BY PIOTR PRETTY AND I VERIFY THAT IT IS ACCURATE. PROCEDURE CODES [id number] INJ PARAVERT F JNT L/S 1 LEV, MODIFIERS: 50 [id number] INJ PARAVERT F JNT L/S 2 LEV, MODIFIERS: 50 [id number] RADXPS IN END [id number] PXD DISPOSITION & COMMUNICATION FOLLOW UP 3 WEEKS ELECTRONICALLY SIGNED BY CINDY ESCOBAR MD, MD ON 11/10/2019 AT 09:26 AM EST DISCLAIMER : THIS IS A VISIT SUMMARY EXTRACTED FROM THE [employer] CHART. IT IS NOT A COPY OF THE [employer] PROGRESS NOTE. MTDD
== END ==
LOC: M PAIN 14:15
PROVIDERS: ATTEND Anesthesiology
DX: M47.816 Spondylosis without myelopathy or radiculopathy, lumbar region (principal); M47.817 Spondylosis without myelopathy or radiculopathy, lumbosacral region; I10 Essential (primary) hypertension; M79.18 Myalgia, other site; F17.210 Nicotine dependence, cigarettes, uncomplicated; Z79.899 Other long term (current) drug therapy; Z88.6 Allergy status to analgesic agent
CPT/HCPCS: 64493; 64494; J3301; Q9967

== ENCOUNTER → 2019-11-06 | Outpatient (CLI) | payer OTHER ==
--- NOTE | 2019-11-11 03:28 | ECWPNPC ---
PATIENT NAME: DEVIN POLLARD : 1960 GENDER: MALE VISIT DATE: 11/06/2019 DISCHARGE DATE: 11/06/19 1011 VISIT LOCKED DATE TIME: PHYSICIAN: DEVORAH SMITH RESOURCE: DEVORAH SMITH REASON FOR APPOINTMENT 1. POST HISTORY OF PRESENT ILLNESS HISTORY OF PRESENT ILLNESS: PAIN THE PATIENT DESCRIBES THE PAIN... 59-YEAR-OLD MALE IN FOR POST FACET BLOCK FOLLOW-UP. HE FEELS THE PROCEDURE WORKED REALLY WELL RATING HIS PAIN PREPROCEDURE AT A 7 OUT OF 10 AND POST PROCEDURE AT 0-3 OUT OF 10. HE FURTHER STATES THAT THE BLOCK CONTINUES TO HELP HIM TODAY RATING HIS PAIN CURRENTLY AT A 3-4-10 AND DESCRIBING IT ACHING. FALL RISK SCREENING: SCREENING :NO FALLS REPORTED IN THE LAST YEAR CURRENT MEDICATIONS TAKING AZELASTINE HCL 0.1 % SOLUTION 2 PUFFS IN EACH NOSTRIL NASALLY TWICE A DAY TAKING AMLODIPINE BESYLATE 10 MG TABLET 1 TABLET ORALLY ONCE A DAY TAKING LISINOPRIL 40 MG TABLET 1 TABLET ORALLY ONCE A DAY TAKING FERROUS SULFATE 325 MG CAPSULE 1 CAP ORALLY DAILY TAKING MAGNESIUM OXIDE 400 MG TABLET 1 TABLET NEEDED ORALLY ONCE A DAY TAKING MULTIVITAMIN - TABLET CHEWABLE 1 CAP ORALLY DAILY TAKING VITAMIN B COMPLEX - TABLET 1 TAB ORALLY DAILY TAKING VITAMIN D3 1000 UNIT CAPSULE 2 CAPSULE ORALLY ONCE A DAY TAKING TYLENOL EXTRA STRENGTH 500 MG TABLET 2 TABLET NEEDED ORALLY EVERY 6 HRS TAKING LIDOCAINE 5 % PATCH 1 PATCH TO SKIN REMOVE AFTER 12 HOURS EXTERNALLY ONCE A DAY TAKING GABAPENTIN 400 MG CAPSULE 2 CAPSULE ORALLY THREE TIMES DAILY TAKING NUCYNTA ER 200 MG TABLET EXTENDED RELEASE 12 HOUR 1 TABLET ORALLY EVERY 12 HRS TAKING METHOCARBAMOL 500 MG TABLET 1.5 TABLETS ORALLY QID AND AT BEDTIME TAKING NORCO 10-325 MG TABLET 1/2 TO 1 TABLET NEEDED ORALLY BID NOT-TAKING NUCYNTA 75 MG TABLET 1 TABLET ORALLY THREE TIMES DAILY NEEDED NOT-TAKING HYDROCODONE-ACETAMINOPHEN 5-300 MG TABLET DIRECTED ORALLY MDD=4 NOT-TAKING MAY USE CBD OIL MEDICATION LIST REVIEWED AND RECONCILED WITH THE PATIENT PAST MEDICAL HISTORY HTN LBP MYALGIA ALLERGIES NSAIDS: ANAPHYLAXIS - ALLERGY SURGICAL HISTORY APPENDECTOMY 1973 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 3 SON(S) , 1 DAUGHTER(S) - HEALTHY. SOCIAL HISTORY GENERAL: TOBACCO USE ARE YOU A:CURRENT SMOKER TYING TO QUIT, HAS CUT DOWN TO 5 -10/ DAY ARE YOU INTERESTED IN QUITTING?NOT READY TO QUIT COUNSELED THE PATIENT ON SMOKING EFFECTS, EDUCATION [id number]/2020 PATIENT COUNSELED ON THE DANGERS OF TOBACCO USE AND URGED TO QUIT:10/07/2019 SMOKING CESSATION INFORMATION GIVEN REFUSED PAIN CLINIC PFS, CLERGY, PUBLIC HEALTH REFERRALS PFS REFERRAL NEEDED?NO CLERGY REFERRAL NEEDED?NO PUBLIC HEALTH REFERRAL NEEDED?NO WAS THE PROVIDER NOTIFIED OF ANY PERTINENT INFO? N/A HAS THE PATIENT BEEN EDUCATED REGARDING HIS/HER PLAN OF CARE?YES HAS THE PATIENT BEEN EDUCATED REGARDING PAIN, THE RISK FOR PAIN, THE IMPORTANCE OF EFFECTIVE PAIN MANAGEMENT, AND THE PAIN ASSESSMENT PROCESS?YES LATEX QUESTIONNAIRE LATEX ALLERGY : HAVE YOU EVER DEVELOPED ANY TYPE OF REACTION AFTER HANDLING LATEX PRODUCTS SUCH RUBBER GLOVES, CONDOMS, DIAPHRAGMS, BALLOONS, SOCKS, OR UNDERWEAR?NO LATEX ALLERGY : HAVE YOU EVER DEVELOPED ANY TYPE OF REACTION DURING OR AFTER DENTAL APPOINTMENT, VAGINAL/RECTAL EXAMINATION, SURGICAL PROCEDURE, OR ANY OTHER EXPOSURE?NO DATE ASKED : 08/21/2019 LATEX RISK : HAVE YOU EVER HAD ANY DIFFICULTY BREATHING OR HIVES AFTER EATING OR HANDLING ANY FRUITS, OR VEGETABLES; SUCH KIWI, BANANAS, STONE FRUITS, OR CHESTNUTSNO LATEX RISK : DO YOU HAVE A PREVIOUS PERSONAL HISTORY OF MORE THAN NINE SURGERIES, SPINA BIFIDA, OR REPEATED CATHERIZATIONS? NO LATEX RISK : ARE YOU FREQUENTLY EXPOSED TO LATEX PRODUCTS IN YOUR OCCUPATION?NO ADVANCE DIRECTIVE ADVANCE DIRECTIVE DISCUSSED WITH PATIENT:YES PT HAS NO ADVANCED DIRECTIVES, AND HE DECLINES INFORMATION ON HCP AT THIS TIME. EDUCATION LEVEL OF EDUCATION:NOT FINISHED COLLEGE YARSANI [id number] DENOMINATIONAL LANGUAGE LANGUAGES SPOKEN:MONGOLIAN DOMESTIC VIOLENCE DO YOU FEEL SAFE IN YOUR ENVIRONMENT?YES RECREATIONAL DRUG USE DRUG USE?NO OCCUPATION: [employer]. LEARNING BARRIERS / SPECIAL NEEDS BARRIERS TO LEARNING?NO HEARING IMPAIRED?NO VISION IMPAIRED?YES COGNITIVELY IMPAIRED?NO :CORRECTIVE LENSES READINESS TO LEARN?YES LEARNING PREFERENCES?NO LEARNING CAPABILITIES PRESENT?YES EMOTIONAL BARRIERS?NO SPECIAL DEVICES?NO LEAD PRODUCER NEEDED?NO REVIEWED 02/12/19 1115 LASREVIEWED WITH PATEINT 05/06/19 1040 NLJREVIEWED WITH PATIENT 06/05/19 1508 BVREVIEWED WITH PATIENT 12-12-19 DS. HOSPITALIZATION/MAJOR DIAGNOSTIC PROCEDURE SURGERY REVIEW OF SYSTEMS REVIEWED BY: PROVIDER: CHINYERE BURNS . CONSTITUTIONAL: ANY CHANGE IN YOUR MEDICAL CONDITION? NO . CHILLS NO . FEVER NO . INFECTION: DO YOU HAVE NEW INFECTIONS? NO . DO YOU HAVE HISTORY OF MRSA? NO . MUSCULOSKELETAL: ANY NEW PATTERNS OF PAIN OR NUMBNESS? YES, PAIN AND NUMBNESS ARE DECREASED . GASTROENTEROLOGY: ANY NEW CHANGE IN BOWEL CONTROL? NO . GENITOURINARY: ANY NEW CHANGE IN BLADDER CONTROL? NO . IS THERE A CHANCE YOU COULD BE ? NO . HEMATOLOGY/LYMPH: DO YOU TAKE ANY BLOOD THINNERS? (FOR EXAMPLE- COUMADIN, PLAVIX, AGGRENOX, PLATEL, PRADAXA, OR XARELTO) NO . WHEN WAS YOUR LAST DOSE? DATE: TIME: . NEUROLOGY: HAVE YOU FALLEN IN THE PAST 12 MONTHS? YES, PRIOR TO LAST VISIT . ANY NEW EXTREMITY NUMBNESS OR WEAKNESS? NO . CARDIOLOGY: DO YOU HAVE A PACEMAKER OR DEFIBRILLATOR? NO . RESPIRATORY: HAVE YOU BEEN SICK IN THE PAST WEEK? NO . FEVER NO . FLU LIKE SYMPTOMS? NO . COUGH NO . INTEGUMENTARY: DO YOU HAVE ANY RASHES OR OPEN SORES? NO . ALLERGIC/IMMUNO: ARE YOU ALLERGIC TO IV DYE? NO . ANY NEW ALLERGIES? NO . PSYCHIATRIC: DO YOU HAVE THOUGHTS OF HURTING YOURSELF OR SOMEONE ELSE? NO . ARE YOU ABUSED, NEGLECTED, OR IN AN UNSAFE ENVIRONMENT? NO . ENDOCRINOLOGY: ARE YOU DIABETIC? NO . OTHER: DO YOU NEED ANY PRESCRIPTIONS? NO . IF YES, PLEASE LIST: ____ . ANY NEW PROBLEMS WITH YOUR MEDICATIONS? NO . WHEN DID YOU LAST EAT? ____ . WHEN DID YOU LAST DRINK? ____ . WHAT DID YOU LAST DRINK? ____ . NAME OF PERSON DRIVING YOU HOME? ____ . DO YOU HAVE ANY OTHER QUESTIONS OR CONCERNS NO . VITAL SIGNS WT 182.4 LBS, HT 72 IN, BMI 24.74 INDEX, BP 141/79 MM HG, HR 89 /MIN, RR 18 /MIN, TEMP 99.4 F, OXYGEN SAT % 97%, SAFE IN ENV? (Y/N) Y, NA INITIALS AW 0934, REVIEWED BY: EM. EXAMINATION GENERAL EXAMINATION: GENERALNO ACUTE DISTRESS, WELL NOURISHED AND HYDRATED. PSYCHAPPROPRIATE MOOD AND AFFECT . LUNGS:CLEAR TO AUSCULTATION BILATERALLY, NO WHEEZES, RHONCHI, RALES. HEART:NO MURMURS, REGULAR RATE AND RHYTHM. ASSESSMENTS SPONDYLOSIS WITHOUT MYELOPATHY OR RADICULOPATHY, LUMBOSACRAL REGION - M47.817 (PRIMARY) TREATMENT SPONDYLOSIS WITHOUT MYELOPATHY OR RADICULOPATHY, LUMBOSACRAL REGION CLINICAL NOTES: 59-YEAR-OLD MALE IN FOR POST FACET BLOCK FOLLOW-UP. GIVEN PRESENTING SYMPTOMS AND RESULTS OF PHYSICAL EXAMINATION RECOMMENDED FOLLOW-UP IN 2 MONTHS. PATIENT HAS EXPRESSED UNDERSTANDING OF AND WAS IN AGREEMENT WITH TREATMENT PLAN. GIVEN TIME TO ASK QUESTIONS AND EXPRESS CONCERNS. PROCEDURE CODES FA211 ESTABILISHED PATIENT [facility] CHARGE DISPOSITION & COMMUNICATION FOLLOW UP 2 MONTHS (REASON: BACK PAIN) ELECTRONICALLY SIGNED BY NATHANAEL GRIFFIN ON 11/10/2019 AT 11:41 AM EST DISCLAIMER : THIS IS A VISIT SUMMARY EXTRACTED FROM THE [employer] CHART. IT IS NOT A COPY OF THE [employer] PROGRESS NOTE. TIMUR
== END ==
LOC: M PAIN 09:15
PROVIDERS: ATTEND Family Medicine
DX: M47.817 Spondylosis without myelopathy or radiculopathy, lumbosacral region (principal); I10 Essential (primary) hypertension; M54.5 Low back pain; M79.18 Myalgia, other site; F17.210 Nicotine dependence, cigarettes, uncomplicated; Z79.899 Other long term (current) drug therapy; Z88.6 Allergy status to analgesic agent

== ENCOUNTER → 2020-01-05 | Outpatient (CLI) | payer OTHER ==
--- NOTE | 2020-01-07 03:25 | ECWPNPC ---
PATIENT NAME: DEVIN POLLARD : 1960 GENDER: MALE VISIT DATE: 01/05/2020 DISCHARGE DATE: 01/05/20 1050 VISIT LOCKED DATE TIME: PHYSICIAN: DEVORAH SMITH RESOURCE: DEVORAH SMITH REASON FOR APPOINTMENT 1. BACK PAIN HISTORY OF PRESENT ILLNESS HISTORY OF PRESENT ILLNESS: PAIN THE PATIENT DESCRIBES THE PAIN... 59-YEAR-OLD MALE IN FOR CHRONIC PAIN FOLLOW-UP. HE RATES HIS PAIN CURRENTLY AT A 6 OUT OF 10 AND DESCRIBES IT ACHING AND BURNING. HE WOULD LIKE TO DISCUSS A PROCEDURE TO HELP ALLEVIATE HIS SYMPTOMS. FALL RISK SCREENING: SCREENING :NO FALLS REPORTED IN THE LAST YEAR CURRENT MEDICATIONS TAKING AZELASTINE HCL 0.1 % SOLUTION 2 PUFFS IN EACH NOSTRIL NASALLY TWICE A DAY TAKING AMLODIPINE BESYLATE 10 MG TABLET 1 TABLET ORALLY ONCE A DAY TAKING LISINOPRIL 40 MG TABLET 1 TABLET ORALLY ONCE A DAY TAKING FERROUS SULFATE 325 MG CAPSULE 1 CAP ORALLY DAILY TAKING MULTIVITAMIN - TABLET CHEWABLE 1 CAP ORALLY DAILY TAKING VITAMIN B COMPLEX - TABLET 1 TAB ORALLY DAILY TAKING VITAMIN D3 1000 UNIT CAPSULE 2 CAPSULE ORALLY ONCE A DAY TAKING TYLENOL EXTRA STRENGTH 500 MG TABLET 2 TABLET NEEDED ORALLY EVERY 6 HRS TAKING LIDOCAINE 5 % PATCH 1 PATCH TO SKIN REMOVE AFTER 12 HOURS EXTERNALLY ONCE A DAY TAKING GABAPENTIN 400 MG CAPSULE 2 CAPSULE ORALLY THREE TIMES DAILY TAKING NUCYNTA ER 200 MG TABLET EXTENDED RELEASE 12 HOUR 1 TABLET ORALLY EVERY 12 HRS TAKING METHOCARBAMOL 500 MG TABLET 1.5 TABLETS ORALLY QID AND AT BEDTIME TAKING NORCO 10-325 MG TABLET 1/2 TO 1 TABLET NEEDED ORALLY BID NOT-TAKING MAGNESIUM OXIDE 400 MG TABLET 1 TABLET NEEDED ORALLY ONCE A DAY NOT-TAKING NUCYNTA 75 MG TABLET 1 TABLET ORALLY THREE TIMES DAILY NEEDED NOT-TAKING HYDROCODONE-ACETAMINOPHEN 5-300 MG TABLET DIRECTED ORALLY MDD=4 NOT-TAKING MAY USE CBD OIL MEDICATION LIST REVIEWED AND RECONCILED WITH THE PATIENT PAST MEDICAL HISTORY HTN LBP MYALGIA ALLERGIES NSAIDS: ANAPHYLAXIS - ALLERGY SURGICAL HISTORY APPENDECTOMY 1973 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 3 SON(S) , 1 DAUGHTER(S) - HEALTHY. SOCIAL HISTORY GENERAL: TOBACCO USE ARE YOU A:CURRENT SMOKER TYING TO QUIT, HAS CUT DOWN TO 5 -10/ DAY ARE YOU INTERESTED IN QUITTING?NOT READY TO QUIT COUNSELED THE PATIENT ON SMOKING EFFECTS, EDUCATION [id number]/27/2020 PATIENT COUNSELED ON THE DANGERS OF TOBACCO USE AND URGED TO QUIT:10/07/2019 SMOKING CESSATION INFORMATION GIVEN REFUSED LATEX QUESTIONNAIRE LATEX ALLERGY : HAVE YOU EVER DEVELOPED ANY TYPE OF REACTION AFTER HANDLING LATEX PRODUCTS SUCH RUBBER GLOVES, CONDOMS, DIAPHRAGMS, BALLOONS, SOCKS, OR UNDERWEAR?NO LATEX ALLERGY : HAVE YOU EVER DEVELOPED ANY TYPE OF REACTION DURING OR AFTER DENTAL APPOINTMENT, VAGINAL/RECTAL EXAMINATION, SURGICAL PROCEDURE, OR ANY OTHER EXPOSURE?NO DATE ASKED : 08/21/2019 LATEX RISK : HAVE YOU EVER HAD ANY DIFFICULTY BREATHING OR HIVES AFTER EATING OR HANDLING ANY FRUITS, OR VEGETABLES; SUCH KIWI, BANANAS, STONE FRUITS, OR CHESTNUTSNO LATEX RISK : DO YOU HAVE A PREVIOUS PERSONAL HISTORY OF MORE THAN NINE SURGERIES, SPINA BIFIDA, OR REPEATED CATHERIZATIONS? NO LATEX RISK : ARE YOU FREQUENTLY EXPOSED TO LATEX PRODUCTS IN YOUR OCCUPATION?NO RECREATIONAL DRUG USE DRUG USE?NO ANABAPTIST [id number] CHRISTIANITY LANGUAGE LANGUAGES SPOKEN:GERMAN EDUCATION LEVEL OF EDUCATION:NOT FINISHED COLLEGE LEARNING BARRIERS / SPECIAL NEEDS BARRIERS TO LEARNING?NO HEARING IMPAIRED?NO VISION IMPAIRED?YES COGNITIVELY IMPAIRED?NO :CORRECTIVE LENSES READINESS TO LEARN?YES LEARNING PREFERENCES?NO LEARNING CAPABILITIES PRESENT?YES EMOTIONAL BARRIERS?NO SPECIAL DEVICES?NO DELIVERY CLERK NEEDED?NO DOMESTIC VIOLENCE DO YOU FEEL SAFE IN YOUR ENVIRONMENT?YES OCCUPATION: [employer]. NEW PATIENT PAIN DIARY PATIENT DESCRIBES PAIN :ACHING, BURNING, IT COMES AND GOES, SHARP, STABBING, THROBBING, SHOOTING FROM 0-10, WHAT LEVEL IS YOUR PAIN TODAY?6 PRECIPITATING FACTORS SITTING TOO LONG, INACTIVITY ALLEVIATING FACTORS CHANGE POSITION, WALKING IMPACT ON FUNCTION YES PAIN CLINIC PFS, CLERGY, PUBLIC HEALTH REFERRALS PFS REFERRAL NEEDED?NO CLERGY REFERRAL NEEDED?NO PUBLIC HEALTH REFERRAL NEEDED?NO WAS THE PROVIDER NOTIFIED OF ANY PERTINENT INFO? N/A HAS THE PATIENT BEEN EDUCATED REGARDING HIS/HER PLAN OF CARE?YES HAS THE PATIENT BEEN EDUCATED REGARDING PAIN, THE RISK FOR PAIN, THE IMPORTANCE OF EFFECTIVE PAIN MANAGEMENT, AND THE PAIN ASSESSMENT PROCESS?YES ADVANCE DIRECTIVE ADVANCE DIRECTIVE DISCUSSED WITH PATIENT:YES PT HAS NO ADVANCED DIRECTIVES, AND HE DECLINES INFORMATION ON HCP AT THIS TIME. REVIEWED 02/12/19 1115 LASREVIEWED WITH PATEINT 05/06/19 1040 NLJREVIEWED WITH PATIENT 06/05/19 1508 BVREVIEWED WITH PATIENT 08-21-19 DS. HOSPITALIZATION/MAJOR DIAGNOSTIC PROCEDURE SURGERY REVIEW OF SYSTEMS REVIEWED BY: PROVIDER: CHINYERE BURNS . CONSTITUTIONAL: ANY CHANGE IN YOUR MEDICAL CONDITION? NO . CHILLS NO . FEVER NO . INFECTION: DO YOU HAVE NEW INFECTIONS? NO . DO YOU HAVE HISTORY OF MRSA? NO . MUSCULOSKELETAL: ANY NEW PATTERNS OF PAIN OR NUMBNESS? NO . GASTROENTEROLOGY: ANY NEW CHANGE IN BOWEL CONTROL? NO . GENITOURINARY: ANY NEW CHANGE IN BLADDER CONTROL? NO . IS THERE A CHANCE YOU COULD BE ? NO . HEMATOLOGY/LYMPH: DO YOU TAKE ANY BLOOD THINNERS? (FOR EXAMPLE- COUMADIN, PLAVIX, AGGRENOX, PLATEL, PRADAXA, OR XARELTO) NO . WHEN WAS YOUR LAST DOSE? DATE: TIME: . NEUROLOGY: HAVE YOU FALLEN IN THE PAST 12 MONTHS? YES, PRIOR TO LAST VISIT . ANY NEW EXTREMITY NUMBNESS OR WEAKNESS? NO . CARDIOLOGY: DO YOU HAVE A PACEMAKER OR DEFIBRILLATOR? NO . RESPIRATORY: HAVE YOU BEEN SICK IN THE PAST WEEK? NO . FEVER NO . FLU LIKE SYMPTOMS? NO . COUGH NO . INTEGUMENTARY: DO YOU HAVE ANY RASHES OR OPEN SORES? NO . ALLERGIC/IMMUNO: ARE YOU ALLERGIC TO IV DYE? NO . ANY NEW ALLERGIES? NO . PSYCHIATRIC: DO YOU HAVE THOUGHTS OF HURTING YOURSELF OR SOMEONE ELSE? NO . ARE YOU ABUSED, NEGLECTED, OR IN AN UNSAFE ENVIRONMENT? NO . ENDOCRINOLOGY: ARE YOU DIABETIC? NO . OTHER: DO YOU NEED ANY PRESCRIPTIONS? NO . IF YES, PLEASE LIST: ____ . ANY NEW PROBLEMS WITH YOUR MEDICATIONS? NO . WHEN DID YOU LAST EAT? ____ . WHEN DID YOU LAST DRINK? ____ . WHAT DID YOU LAST DRINK? ____ . NAME OF PERSON DRIVING YOU HOME? ____ . DO YOU HAVE ANY OTHER QUESTIONS OR CONCERNS NO . VITAL SIGNS WT 179 LBS, HT 72 IN, BMI 24.27 INDEX, BP 140/80 MM HG, HR 76 /MIN, RR 14 /MIN, TEMP 99.1 F, OXYGEN SAT % 97, SAFE IN ENV? (Y/N) Y, REVIEWED BY: EM. EXAMINATION GENERAL EXAMINATION: GENERALNO ACUTE DISTRESS, WELL NOURISHED AND HYDRATED. PSYCHAPPROPRIATE MOOD AND AFFECT . LUNGS:CLEAR TO AUSCULTATION BILATERALLY, NO WHEEZES, RHONCHI, RALES. HEART:NO MURMURS, REGULAR RATE AND RHYTHM. BACK:POINT TENDER ALONG LUMBAR SPINE, SURROUNDING SKIN SHOWS NO ERYTHEMA, ECCHYMOSIS, INCREASED WARMTH, AND/OR SKIN ERUPTIONS NOTED. PATIENT DOES ENDORSE INCREASED PAIN WITH FACET LOADING . MUSCULOSKELETAL:EQUAL STRENGTH OF THE LOWER EXTREMITIES BILATERALLY . 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 CLINICAL NOTES: 59-YEAR-OLD MALE IN FOR CHRONIC PAIN FOLLOW-UP. GIVEN PRESENTING SYMPTOMS AND RESULTS OF PHYSICAL EXAMINATION RECOMMENDED THERAPEUTIC LUMBAR FACET BLOCK L4-L5 L5-S1 WITH POSTPROCEDURAL FOLLOW-UP. PATIENT HAS EXPRESSED UNDERSTANDING OF AND WAS IN AGREEMENT WITH TREATMENT PLAN. GIVEN TIME TO ASK QUESTIONS AND EXPRESS CONCERNS. . PREVENTIVE MEDICINE PAIN CLINIC TEACHING: PROCEDURE TEACHING PRE PROCEDURE INSTRUCTIONS REVIEWED WITH PT. VERBALIZED UNDERSTANDING.. PROCEDURE CODES FA211 ESTABILISHED PATIENT [facility] CHARGE DISPOSITION & COMMUNICATION FOLLOW UP POSTPROCEDURE (REASON: BILATERAL THERAPEUTIC LUMBAR FACET BLOCK L4-L5 L5-S1) ELECTRONICALLY SIGNED BY NATHANAEL GRIFFIN ON 01/06/2020 AT 02:43 PM EDT DISCLAIMER : THIS IS A VISIT SUMMARY EXTRACTED FROM THE [employer] CHART. IT IS NOT A COPY OF THE [employer] PROGRESS NOTE. TIMUR
== END ==
LOC: M PAIN 09:30
PROVIDERS: ATTEND Family Medicine
DX: M47.817 Spondylosis without myelopathy or radiculopathy, lumbosacral region (principal); F17.210 Nicotine dependence, cigarettes, uncomplicated; I10 Essential (primary) hypertension; Z79.899 Other long term (current) drug therapy; Z88.8 Allergy status to other drugs, medicaments and biological substances

== ENCOUNTER → 2020-01-10 | Outpatient (CLI) | payer OTHER | LOC: M LABSMTC 09:22 | PROVIDERS: ATTEND Anesthesiology | DX: Z01.818 Encounter for other preprocedural examination (principal); Z11.59 Encounter for screening for other viral diseases ==

== ENCOUNTER → 2020-01-13 | Outpatient (CLI) | payer OTHER ==
[~2020-01-13] MED LIST changes: -BUPIVACAINE HCL 0.25% 30 ML VIAL As Ordered ONE; +BUPIVACAINE HCL 0.25% 30ML VIAL As Ordered ONE; -ISOVUE-M 300 61% 15ML VIAL (Q9967) As Ordered ONE; +ISOVUE-M 300 61% 15ML VIAL As Ordered ONE; +LIDOCAINE 1% SDV 30ML VIAL As Ordered ONE; -LIDOCAINE 1% SDV INJ 30 ML VIAL As Ordered ONE; -TRIAMCINOLONE ACETONIDE SUSP 40 MG/ML VIAL (J3301) As Ordered ONE; +dexameTHASONE 10MG/1ML VIAL PRES.FREE (J1100 PER 1MG) As Ordered ONE
--- NOTE | 2020-01-13 12:24 | REP ---
C-ARM VIEWS OF THE LOWER LUMBAR SPINE: CLINICAL HISTORY: Pain . Two C-arm views of the lower lumbar spine performed during facet injections performed by Dr. Nevarez. [place] are seen along the lower lumbar facets. 35 seconds of fluoroscopy time utilized. Electronically Signed by Magno Rodas MD 01/13/2020 12:34 P
--- NOTE | 2020-01-14 00:13 | ECWPNPC ---
PATIENT NAME: DEVIN POLLARD : 1960 GENDER: MALE VISIT DATE: 01/13/2020 DISCHARGE DATE: 01/13/20 1232 VISIT LOCKED DATE TIME: PHYSICIAN: CINDY ESCOBAR MD RESOURCE: CINDY ESCOBAR MD REASON FOR APPOINTMENT 1. BILATERAL THERAPEUTIC LUMBAR FACET BLOCK L4/L5, L5/S1 HISTORY OF PRESENT ILLNESS HISTORY OF PRESENT ILLNESS: PAIN THE PATIENT DESCRIBES THE PAIN... FALL RISK SCREENING: SCREENING :NO FALLS REPORTED IN THE LAST YEAR CURRENT MEDICATIONS TAKING AZELASTINE HCL 0.1 % SOLUTION 2 PUFFS IN EACH NOSTRIL NASALLY TWICE A DAY, NOTES: > 3 WEEKS TAKING AMLODIPINE BESYLATE 10 MG TABLET 1 TABLET ORALLY ONCE A DAY, NOTES: 529 TAKING LISINOPRIL 40 MG TABLET 1 TABLET ORALLY ONCE A DAY, NOTES: 01/11/1700 TAKING FERROUS SULFATE 325 MG CAPSULE 1 CAP ORALLY DAILY, NOTES: 01/11 1830 TAKING MULTIVITAMIN - TABLET CHEWABLE 1 CAP ORALLY DAILY, NOTES: 01/11 1830 TAKING VITAMIN B COMPLEX - TABLET 1 TAB ORALLY DAILY, NOTES: 01/11 1830 TAKING VITAMIN D3 1000 UNIT CAPSULE 2 CAPSULE ORALLY ONCE A DAY, NOTES: 01/11 1830 TAKING TYLENOL EXTRA STRENGTH 500 MG TABLET 2 TABLET NEEDED ORALLY EVERY 6 HRS, NOTES: 01/11 1830 TAKING LIDOCAINE 5 % PATCH 1 PATCH TO SKIN REMOVE AFTER 12 HOURS EXTERNALLY ONCE A DAY, NOTES: 01/10 TAKING GABAPENTIN 400 MG CAPSULE 2 CAPSULE ORALLY THREE TIMES DAILY, NOTES: 01/12 530 TAKING NUCYNTA ER 200 MG TABLET EXTENDED RELEASE 12 HOUR 1 TABLET ORALLY EVERY 12 HRS, NOTES: 01/12 530 TAKING METHOCARBAMOL 500 MG TABLET 1.5 TABLETS ORALLY QID AND AT BEDTIME, NOTES: 01/12 530 TAKING NORCO 10-325 MG TABLET 1/2 TO 1 TABLET NEEDED ORALLY BID, NOTES: 01/12 530 NOT-TAKING MAGNESIUM OXIDE 400 MG TABLET 1 TABLET NEEDED ORALLY ONCE A DAY NOT-TAKING NUCYNTA 75 MG TABLET 1 TABLET ORALLY THREE TIMES DAILY NEEDED NOT-TAKING HYDROCODONE-ACETAMINOPHEN 5-300 MG TABLET DIRECTED ORALLY MDD=4 NOT-TAKING MAY USE CBD OIL MEDICATION LIST REVIEWED AND RECONCILED WITH THE PATIENT PAST MEDICAL HISTORY HTN LBP MYALGIA ALLERGIES NSAIDS: ANAPHYLAXIS - ALLERGY SURGICAL HISTORY APPENDECTOMY 1974 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 3 SON(S) , 1 DAUGHTER(S) - HEALTHY. SOCIAL HISTORY GENERAL: TOBACCO USE ARE YOU A:CURRENT SMOKER TYING TO QUIT, HAS CUT DOWN TO 5 -10/ DAY ARE YOU INTERESTED IN QUITTING?NOT READY TO QUIT PATIENT COUNSELED ON THE DANGERS OF TOBACCO USE AND URGED TO QUIT:10/07/2019 COUNSELED THE PATIENT ON SMOKING EFFECTS, EDUCATION [id number]/27/2020 SMOKING CESSATION INFORMATION GIVEN REFUSED LATEX QUESTIONNAIRE LATEX ALLERGY : HAVE YOU EVER DEVELOPED ANY TYPE OF REACTION AFTER HANDLING LATEX PRODUCTS SUCH RUBBER GLOVES, CONDOMS, DIAPHRAGMS, BALLOONS, SOCKS, OR UNDERWEAR?NO LATEX ALLERGY : HAVE YOU EVER DEVELOPED ANY TYPE OF REACTION DURING OR AFTER DENTAL APPOINTMENT, VAGINAL/RECTAL EXAMINATION, SURGICAL PROCEDURE, OR ANY OTHER EXPOSURE?NO DATE ASKED : 08/21/2019 LATEX RISK : HAVE YOU EVER HAD ANY DIFFICULTY BREATHING OR HIVES AFTER EATING OR HANDLING ANY FRUITS, OR VEGETABLES; SUCH KIWI, BANANAS, STONE FRUITS, OR CHESTNUTSNO LATEX RISK : DO YOU HAVE A PREVIOUS PERSONAL HISTORY OF MORE THAN NINE SURGERIES, SPINA BIFIDA, OR REPEATED CATHERIZATIONS? NO LATEX RISK : ARE YOU FREQUENTLY EXPOSED TO LATEX PRODUCTS IN YOUR OCCUPATION?NO RECREATIONAL DRUG USE DRUG USE?NO ALEVISM [id number] ALEVISM LANGUAGE LANGUAGES SPOKEN:SLOVAK EDUCATION LEVEL OF EDUCATION:NOT FINISHED COLLEGE LEARNING BARRIERS / SPECIAL NEEDS BARRIERS TO LEARNING?NO HEARING IMPAIRED?NO VISION IMPAIRED?YES COGNITIVELY IMPAIRED?NO :CORRECTIVE LENSES READINESS TO LEARN?YES LEARNING PREFERENCES?NO LEARNING CAPABILITIES PRESENT?YES EMOTIONAL BARRIERS?NO SPECIAL DEVICES?NO CORE BAKER NEEDED?NO DOMESTIC VIOLENCE DO YOU FEEL SAFE IN YOUR ENVIRONMENT?YES OCCUPATION: [employer]. NEW PATIENT PAIN DIARY TODAY'S VISIT 01/12/10 PATIENT DESCRIBES PAIN :ACHING, BURNING, HAVE IT ALL THE TIME, IT COMES AND GOES, SHARP PT DESCRIBES A DULL ACHE ALL THE TIME, BUT REPORTS A VARIED LEVEL OF STABBING, SHARP PAIN THAT COMES AND GOES. FROM 0-10, WHAT LEVEL IS YOUR PAIN TODAY?7 PRECIPITATING FACTORS ACTIVITY, POSITIONING ALLEVIATING FACTORS CHANGING POSITION, RESTING PAIN CLINIC PFS, CLERGY, PUBLIC HEALTH REFERRALS PFS REFERRAL NEEDED?NO CLERGY REFERRAL NEEDED?NO PUBLIC HEALTH REFERRAL NEEDED?NO WAS THE PROVIDER NOTIFIED OF ANY PERTINENT INFO? N/A HAS THE PATIENT BEEN EDUCATED REGARDING HIS/HER PLAN OF CARE?YES HAS THE PATIENT BEEN EDUCATED REGARDING PAIN, THE RISK FOR PAIN, THE IMPORTANCE OF EFFECTIVE PAIN MANAGEMENT, AND THE PAIN ASSESSMENT PROCESS?YES ADVANCE DIRECTIVE ADVANCE DIRECTIVE DISCUSSED WITH PATIENT:YES PT HAS NO ADVANCED DIRECTIVES, AND HE DECLINES INFORMATION ON HCP AT THIS TIME. HOSPITALIZATION/MAJOR DIAGNOSTIC PROCEDURE SURGERY REVIEW OF SYSTEMS REVIEWED BY: PROVIDER: CINDY ESCOBAR MD . CONSTITUTIONAL: ANY CHANGE IN YOUR MEDICAL CONDITION? NO . CHILLS NO . FEVER NO . INFECTION: DO YOU HAVE NEW INFECTIONS? NO . DO YOU HAVE HISTORY OF MRSA? NO . MUSCULOSKELETAL: ANY NEW PATTERNS OF PAIN OR NUMBNESS? NO . GASTROENTEROLOGY: ANY NEW CHANGE IN BOWEL CONTROL? NO . GENITOURINARY: ANY NEW CHANGE IN BLADDER CONTROL? NO . IS THERE A CHANCE YOU COULD BE ? NO . HEMATOLOGY/LYMPH: DO YOU TAKE ANY BLOOD THINNERS? (FOR EXAMPLE- COUMADIN, PLAVIX, AGGRENOX, PLATEL, PRADAXA, OR XARELTO) NO . WHEN WAS YOUR LAST DOSE? DATE: TIME: . NEUROLOGY: HAVE YOU FALLEN IN THE PAST 12 MONTHS? NOT SINCE LAST VISIT . ANY NEW EXTREMITY NUMBNESS OR WEAKNESS? NO . CARDIOLOGY: DO YOU HAVE A PACEMAKER OR DEFIBRILLATOR? NO . RESPIRATORY: HAVE YOU BEEN SICK IN THE PAST WEEK? NO . FEVER NO . FLU LIKE SYMPTOMS? NO . COUGH NO . INTEGUMENTARY: DO YOU HAVE ANY RASHES OR OPEN SORES? NO . ALLERGIC/IMMUNO: ARE YOU ALLERGIC TO IV DYE? NO . ANY NEW ALLERGIES? NO . PSYCHIATRIC: DO YOU HAVE THOUGHTS OF HURTING YOURSELF OR SOMEONE ELSE? NO . ARE YOU ABUSED, NEGLECTED, OR IN AN UNSAFE ENVIRONMENT? NO . ENDOCRINOLOGY: ARE YOU DIABETIC? NO . OTHER: DO YOU NEED ANY PRESCRIPTIONS? NO . IF YES, PLEASE LIST: ____ . ANY NEW PROBLEMS WITH YOUR MEDICATIONS? NO . WHEN DID YOU LAST EAT? ____01/12/20 1800 . WHEN DID YOU LAST DRINK? ____01/12 0600 . WHAT DID YOU LAST DRINK? ____WATER . NAME OF PERSON DRIVING YOU HOME? ____WIFE HOOD . DO YOU HAVE ANY OTHER QUESTIONS OR CONCERNS NO . VITAL SIGNS WT 177 LBS, HT 72 IN, BMI 24.00 INDEX, BP 142/85 MM HG, HR 89 /MIN, RR 18 /MIN, TEMP 97.6 F, OXYGEN SAT % 96%, SAFE IN ENV? (Y/N) YES, NA INITIALS AW 1109, REVIEWED BY: ASIF. ASSESSMENTS SPONDYLOSIS WITHOUT MYELOPATHY OR RADICULOPATHY, LUMBAR REGION - M47.816 (PRIMARY) SPONDYLOSIS WITHOUT MYELOPATHY OR RADICULOPATHY, LUMBOSACRAL REGION - M47.817 TREATMENT SPONDYLOSIS WITHOUT MYELOPATHY OR RADICULOPATHY, LUMBAR REGION SMC FACET BLOCK (PAIN)[id number] PROCEDURES PN LUMBAR FACET BLOCK THERAPEUTIC PRE PROCEDURE DIAGNOSIS LUMBAR SPONDYLOSIS, LUMBOSACRAL SPONDYLOSIS POST PROCEDURE DIAGNOSIS LUMBAR SPONDYLOSIS, LUMBOSACRAL SPONDYLOSIS PROCEDURE BILATERAL L4-L5, L5-S1 LUMBAR FACET THERAPUTIC BLOCK SURGEON DR. CINDY ESCOBAR DIRECTOR OF LABORATORY OPERATIONS NONE ANESTHESIA LOCAL PRE PROCEDURE NOTE THE PATIENT HAS A HISTORY OF CHRONIC LOW BACK PAIN. I EVALUATED THE PATIENT AND REVIEWED THE CHART. I WENT OVER THE RISKS, ALTERNATIVES, AND BENEFITS ASSOCIATED WITH THIS PROCEDURE. I DISCUSSED WITH THE PATIENT THAT THE USE OF STEROIDS MAY CONTRIBUTE TO IMMUNOSUPPRESSION OF HIS BODY AGAINST INFECTIONS SUCH THE GO VIRUS, COVID-19. HE IS AWARE OF THE POTENTIAL COMPLICATIONS ASSOCIATED WITH AN INFECTION OF THIS VIRUS INCLUDING . THE PATIENT WOULD LIKE TO PROCEED AND GIVES CONSENT TO PERFORM THE PROCEDURE. THE PATIENT DENIES UNEXPLAINABLE WEIGHT LOSS, FEVER, CHILLS, OR NEW CHANGES IN URINARY OR BOWEL CONTROL. THE PATIENT IS COVID-19 NEGATIVE DESCRIPTION OF PROCEDURE THE PATIENT WAS BROUGHT TO THE PROCEDURE ROOM AND PLACED IN THE PRONE POSITION. THE LUMBOSACRAL AREA WAS CLEANED WITH CHLORAPREP SOLUTION AND DRAPED ASEPTICALLY. THE PROCEDURE WAS DONE UNDER STERILE CONDITIONS. I CHECKED LATERALITY AND THE LEVEL WHERE THE PROCEDURE WAS GOING TO BE PERFORMED WITH THE PATIENT AND THE SUPPORTING STAFF AT THE MOMENT OF THE TIME OUT IN THE PROCEDURE ROOM. UNDER FLUOROSCOPIC GUIDANCE, THE TARGET POINT WAS SELECTED AT THE BILATERAL L4-L5 AND BILATERAL L5-S1 FACET JOINTS. TARGET POINT WAS SELECTED AFTER LATERAL ROTATION AND TILT OF THE MAGNIFIER OF THE C-ARM. LIDOCAINE 0.5% WAS USED TO NUMB THE SKIN AND THE SUBCUTANEOUS TISSUE BELOW IT. SPINAL NEEDLES, 22-GAUGE, WERE ADVANCED UNDER FLUOROSCOPIC GUIDANCE AND FOLLOWING PATIENT FEEDBACK UNTIL THE TARGETS WERE TOUCHED. THE POSITION OF THE NEEDLES WAS VERIFIED WITH AP AND LATERAL VIEWS. AFTER PROPER POSITION OF THE NEEDLES WAS ACHIEVED, ISOVUE-M DYE 30% 0.1 ML WAS INJECTED SHOWING ADEQUATE SPREAD OF THE DYE. THEN A SOLUTION OF 1.0 ML OF BUPIVACAINE 0.125% OF DEXAMETHASONE 5 MG WAS INJECTED AT EACH SITE. THERE WAS NO EVIDENCE OF BLOOD, PARESTHESIA OR CEREBROSPINAL FLUID DURING THE PROCEDURE. THE PATIENT WAS SENT TO THE RECOVERY ROOM. THE PATIENT WAS MOVING THE EXTREMITIES AND DOING WELL. THERE WAS NO COMPLICATION DURING THE PROCEDURE. FLUOROSCOPY TIME WAS 35 SECONDS POST PROCEDURE NOTE THE PATIENT WILL BE SEEN IN A FOLLOW UP IN THE NEXT FEW WEEKS. I AM LOOKING FOR LONG LASTING PAIN RELIEF FOR THE PATIENT WITH THIS INJECTION. INSTRUCTIONS WERE GIVEN, QUESTIONS WERE ANSWERED, AND THE PATIENT EXPRESSED UNDERSTANDING AND AGREES WITH THE PLAN. I INSTRUCTED THE PATIENT TO STAY HOME, IF POSSIBLE, FOR A WEEK DUE TO COVID-19. I, RAJI SANTANA, DOCUMENTED THE ABOVE INFORMATION ACTING A SCRIBE FOR DR. ESCOBAR. I HAVE REVIEWED THE ABOVE DOCUMENT, WRITTEN BY MARIA DE JESUS QUISPE, AND I VERIFY THAT IT IS ACCURATE PROCEDURE CODES 75520 INJ PARAVERT F JNT L/S 1 LEV, MODIFIERS: 50 [id number] INJ PARAVERT F JNT L/S 2 LEV, MODIFIERS: 50 [id number] RADXPS IN END [id number] PXD DISPOSITION & COMMUNICATION FOLLOW UP F/UP LARGE SHEETFED PRESS OPERATOR (REASON: POST-PROCEDURE F/UP-LOW BACK PAIN) ELECTRONICALLY SIGNED BY CINDY ESCOBAR MD, ON 01/13/2020 AT 05:15 PM EDT DISCLAIMER : THIS IS A VISIT SUMMARY EXTRACTED FROM THE [employer] CHART. IT IS NOT A COPY OF THE [employer] PROGRESS NOTE. MTDD
== END ==
LOC: M PAIN 11:15
PROVIDERS: ATTEND Anesthesiology
DX: M47.816 Spondylosis without myelopathy or radiculopathy, lumbar region (principal); M47.817 Spondylosis without myelopathy or radiculopathy, lumbosacral region; I10 Essential (primary) hypertension; Z79.891 Long term (current) use of opiate analgesic; Z79.899 Other long term (current) drug therapy
CPT/HCPCS: 64493; 64494; J1100; Q9967

== ENCOUNTER → 2020-02-09 | Outpatient (CLI) | payer OTHER ==
--- NOTE | 2020-02-11 01:40 | ECWPNPC ---
PATIENT NAME: DEVIN POLLARD : 1960 GENDER: MALE VISIT DATE: 02/09/2020 DISCHARGE DATE: 02/09/20 1008 VISIT LOCKED DATE TIME: PHYSICIAN: DEVORAH SMITH RESOURCE: DEVORAH SMITH REASON FOR APPOINTMENT 1. POST BILAT LUMBAR THERA FACET BLK HISTORY OF PRESENT ILLNESS GENERAL: -59-YEAR-OLD MALE IN FOR POST BILATERAL LUMBAR THERAPEUTIC FACET BLOCK FOLLOW-UP. PATIENT FEELS THE PROCEDURE WAS NOT EFFECTIVE IT WAS BEFORE FURTHER STATING IT ONLY GAVE HIM PAIN RELIEF FOR ABOUT A WEEK. WHEN ASKED PATIENT ADMITS THAT HE FEELS THIS LACK OF EFFICACY WAS DUE TO A CHANGE IN MEDICATIONS THEY USED DEXAMETHASONE DURING THE PROCEDURE AND NOT KENALOG. HE RATES PAIN CURRENTLY AT A 5 OUT OF 10 AND DESCRIBES IT ACHING, BURNING, SHARP, STABBING, TENDER, THROBBING, SORE, AND SHOOTING. PAIN SCREENING: PATIENT HAS A COMPLAINT OF ACUTE OR CHRONIC PAIN :YES PRE-PROCEDURE PAIN 7/10, POST PROCEDUREPAIN--/10. LOCATION OF PAIN:LOW BACK INTENSITY OF PAIN (SCALE OF 1 TO 10):5 WHAT DOES YOUR PAIN FEEL LIKE:ACHING, BURNING, SHARP, STABBING, TENDER, THROBBING, SORE, SHOOTING DURATION:CONTINOUS, CONSTANT, ALL DAY, AWAKENS FROM SLEEP PAIN IS INCREASED BY:ACTIVITIES, PROLONGED STANDING PAIN IS DECREASED BY:USE OF PAIN MEDICATIONS, OTHERS CHANGE OF ACTIVITY/ MOVEMENT AT THE MOMENT THE PAIN GETS WORSE PAIN HAS INTERFERED WITH THE FOLLOWING:BATHING/DRESSING, MOOD, WALKING ABILITY, HOUSEWORK, SLEEP, RELATIONSHIP WITH OTHERS, ENJOYMENT OF LIFE, FOOD PREPARATION PLAN/GOALS/TREATMENT/INTERVENTION/FOLLOW UP:SEE PLAN FALL RISK SCREENING: SCREENING :ONE FALL WITHOUT INJURY IN THE PAST YEAR FELL IN THE SHOWER TODAY WITH NO INJURY 02/09/20 DEPRESSION SCREENING: PHQ-2 (2015 EDITION) LITTLE INTEREST OR PLEASURE IN DOING THINGS?NOT AT ALL FEELING DOWN, DEPRESSED, OR HOPELESS?NOT AT ALL TOTAL SCORE0 PAIN CENTER INTAKE QUESTIONS: DO YOU HAVE A HISTORY OF MRSA? :NO DO YOU TAKE A BLOOD THINNERS? :NO DO YOU HAVE ANY BLEEDING DISORDERS? :NO ANY NEW NUMBNESS OR WEAKNESS IN YOUR LEGS OR ARMS? :YES LEFT LEG ANY PACEMAKER,DEFIBRILLATOR, OR DORSAL COLUMN STIMULATOR? :NO DO YOU HAVE ANY RASHES OR OPEN SORES? :NO ARE YOU ALLERGIC TO IV DYE? :NO ARE YOU DIABETIC? :NO ANY NEW PROBLEMS WITH YOUR MEDICATIONS? :NO HAVE YOU RECEIVED A VACCINE IN THE PAST 30 DAYS? :NO DO YOU PLAN TO RECEIVE A VACCINE IN THE NEXT 21 DAYS? :NO DO YOU NEED ANY PRESCRIPTION? :NO DO YOU TAKE ANY IMMUNOSUPPRESSIVE MEDICATIONS? :NO NURSING NOTE: -. CURRENT MEDICATIONS TAKING AZELASTINE HCL 0.1 % SOLUTION 2 PUFFS IN EACH NOSTRIL NASALLY TWICE A DAY, NOTES: > 3 WEEKS TAKING AMLODIPINE BESYLATE 10 MG TABLET 1 TABLET ORALLY ONCE A DAY, NOTES: 529 TAKING LISINOPRIL 40 MG TABLET 1 TABLET ORALLY ONCE A DAY, NOTES: 01/11/1700 TAKING FERROUS SULFATE 325 MG CAPSULE 1 CAP ORALLY DAILY, NOTES: 01/11 1830 TAKING MULTIVITAMIN - TABLET CHEWABLE 1 CAP ORALLY DAILY, NOTES: 01/11 1830 TAKING VITAMIN B COMPLEX - TABLET 1 TAB ORALLY DAILY, NOTES: 01/11 1830 TAKING VITAMIN D3 1000 UNIT CAPSULE 2 CAPSULE ORALLY ONCE A DAY, NOTES: 01/11 1830 TAKING TYLENOL EXTRA STRENGTH 500 MG TABLET 2 TABLET NEEDED ORALLY EVERY 6 HRS, NOTES: 01/11 1830 TAKING LIDOCAINE 5 % PATCH 1 PATCH TO SKIN REMOVE AFTER 12 HOURS EXTERNALLY ONCE A DAY, NOTES: 01/10 TAKING GABAPENTIN 400 MG CAPSULE 2 CAPSULE ORALLY THREE TIMES DAILY, NOTES: 01/12 530 TAKING NUCYNTA ER 200 MG TABLET EXTENDED RELEASE 12 HOUR 1 TABLET ORALLY EVERY 12 HRS, NOTES: 01/12 530 TAKING METHOCARBAMOL 500 MG TABLET 1.5 TABLETS ORALLY QID AND AT BEDTIME, NOTES: 01/12 530 TAKING NORCO 10-325 MG TABLET 1/2 TO 1 TABLET NEEDED ORALLY BID, NOTES: 01/12 530 NOT-TAKING MAGNESIUM OXIDE 400 MG TABLET 1 TABLET NEEDED ORALLY ONCE A DAY NOT-TAKING NUCYNTA 75 MG TABLET 1 TABLET ORALLY THREE TIMES DAILY NEEDED NOT-TAKING HYDROCODONE-ACETAMINOPHEN 5-300 MG TABLET DIRECTED ORALLY MDD=4 NOT-TAKING MAY USE CBD OIL MEDICATION LIST REVIEWED AND RECONCILED WITH THE PATIENT PAST MEDICAL HISTORY HTN LBP MYALGIA ALLERGIES NSAIDS: ANAPHYLAXIS - ALLERGY SURGICAL HISTORY APPENDECTOMY 1974 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 3 SON(S) , 1 DAUGHTER(S) - HEALTHY. SOCIAL HISTORY GENERAL: TOBACCO USE ARE YOU A:CURRENT SMOKER TYING TO QUIT, HAS CUT DOWN TO 5 -10/ DAY ARE YOU INTERESTED IN QUITTING?NOT READY TO QUIT COUNSELED THE PATIENT ON SMOKING EFFECTS, EDUCATION [id number]/01/2020 PATIENT COUNSELED ON THE DANGERS OF TOBACCO USE AND URGED TO QUIT:02/09/2020 SMOKING CESSATION INFORMATION GIVEN02/09/2020 LATEX QUESTIONNAIRE LATEX ALLERGY : HAVE YOU EVER DEVELOPED ANY TYPE OF REACTION AFTER HANDLING LATEX PRODUCTS SUCH RUBBER GLOVES, CONDOMS, DIAPHRAGMS, BALLOONS, SOCKS, OR UNDERWEAR?NO LATEX ALLERGY : HAVE YOU EVER DEVELOPED ANY TYPE OF REACTION DURING OR AFTER DENTAL APPOINTMENT, VAGINAL/RECTAL EXAMINATION, SURGICAL PROCEDURE, OR ANY OTHER EXPOSURE?NO LATEX RISK : HAVE YOU EVER HAD ANY DIFFICULTY BREATHING OR HIVES AFTER EATING OR HANDLING ANY FRUITS, OR VEGETABLES; SUCH KIWI, BANANAS, STONE FRUITS, OR CHESTNUTSNO LATEX RISK : DO YOU HAVE A PREVIOUS PERSONAL HISTORY OF MORE THAN NINE SURGERIES, SPINA BIFIDA, OR REPEATED CATHERIZATIONS? NO LATEX RISK : ARE YOU FREQUENTLY EXPOSED TO LATEX PRODUCTS IN YOUR OCCUPATION?NO DATE ASKED : 02/09/2020 RECREATIONAL DRUG USE DRUG USE?NO EVANGELICAL [id number] TAOIST LANGUAGE LANGUAGES SPOKEN:TAMAZIGHT EDUCATION LEVEL OF EDUCATION:NOT FINISHED COLLEGE LEARNING BARRIERS / SPECIAL NEEDS BARRIERS TO LEARNING?NO HEARING IMPAIRED?NO VISION IMPAIRED?YES COGNITIVELY IMPAIRED?NO :CORRECTIVE LENSES READINESS TO LEARN?YES LEARNING PREFERENCES?NO LEARNING CAPABILITIES PRESENT?YES EMOTIONAL BARRIERS?NO SPECIAL DEVICES?NO COAT EXAMINER NEEDED?NO DOMESTIC VIOLENCE DO YOU FEEL SAFE IN YOUR ENVIRONMENT?YES 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 NEW PATIENT PAIN DIARY TODAY'S VISIT 01/12/10 PATIENT DESCRIBES PAIN :ACHING, BURNING, HAVE IT ALL THE TIME, IT COMES AND GOES, SHARP PT DESCRIBES A DULL ACHE ALL THE TIME, BUT REPORTS A VARIED LEVEL OF STABBING, SHARP PAIN THAT COMES AND GOES. FROM 0-10, WHAT LEVEL IS YOUR PAIN TODAY?7 PRECIPITATING FACTORS ACTIVITY, POSITIONING ALLEVIATING FACTORS CHANGING POSITION, RESTING PAIN CLINIC PFS, CLERGY, PUBLIC HEALTH REFERRALS PFS REFERRAL NEEDED?NO CLERGY REFERRAL NEEDED?NO PUBLIC HEALTH REFERRAL NEEDED?NO WAS THE PROVIDER NOTIFIED OF ANY PERTINENT INFO? N/A HAS THE PATIENT BEEN EDUCATED REGARDING HIS/HER PLAN OF CARE?YES HAS THE PATIENT BEEN EDUCATED REGARDING PAIN, THE RISK FOR PAIN, THE IMPORTANCE OF EFFECTIVE PAIN MANAGEMENT, AND THE PAIN ASSESSMENT PROCESS?YES ADVANCE DIRECTIVE ADVANCE DIRECTIVE DISCUSSED WITH PATIENT:YES PT HAS NO ADVANCED DIRECTIVES, AND HE DECLINES INFORMATION ON HCP AT THIS TIME. HOSPITALIZATION/MAJOR DIAGNOSTIC PROCEDURE SURGERY REVIEW OF SYSTEMS CONSTITUTIONAL: ANY RECENT FEVER OR ILLNESS NO . CHILLS NO . GASTROENTEROLOGY: BOWEL INCONTINENCE NO . ANY NEW CHANGE IN BOWEL CONTROL? NO . ABDOMINAL PAIN NO . CONSTIPATION NO . GENITOURINARY: ANY NEW CHANGE IN BLADDER CONTROL? NO . IS THERE A CHANCE YOU COULD BE ? NO . URINARY INCONTINENCE NO . CARDIOLOGY: CHEST PRESSURE NO . CHEST PAIN NO . RESPIRATORY: COUGH NO . SHORTNESS OF BREATH NO . VITAL SIGNS WT 183.2 LBS, HT 72 IN, BMI 24.84 INDEX, BP 146/78 MM HG, HR 88 /MIN, RR 16 /MIN, TEMP 96.6 F, OXYGEN SAT % 98%, SAFE IN ENV? 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 EXAMINATION GENERAL EXAMINATION: GENERALNO ACUTE DISTRESS, WELL NOURISHED AND HYDRATED. PSYCHAPPROPRIATE MOOD AND AFFECT . LUNGS:CLEAR TO AUSCULTATION BILATERALLY, NO WHEEZES, RHONCHI, RALES. HEART:NO MURMURS, REGULAR RATE AND RHYTHM. BACK:POINT TENDER ALONG LUMBAR SPINE, STARTING SKIN SHOWS NO ERYTHEMA . ASSESSMENTS SPONDYLOSIS WITHOUT MYELOPATHY OR RADICULOPATHY, LUMBOSACRAL REGION - M47.817 (PRIMARY) TREATMENT SPONDYLOSIS WITHOUT MYELOPATHY OR RADICULOPATHY, LUMBOSACRAL REGION CLINICAL NOTES: 59-YEAR-OLD MALE IN FOR POST FACET BLOCK FOLLOW-UP. GIVEN PRESENTING SYMPTOMS AND RESULTS OF PHYSICAL EXAMINATION RECOMMENDED DISCUSSING CASE WITH DR. ESCOBAR TO SEE IF ANOTHER PROCEDURE WOULD BE WARRANTED. PATIENT HAS EXPRESSED UNDERSTANDING OF AND WAS IN AGREEMENT WITH TREATMENT PLAN. GIVEN TIME TO ASK QUESTIONS AND EXPRESS CONCERNS. OTHERS NOTES: FACET JOINT INJECTION MATERIAL WAS PRINTED. PROCEDURE CODES [id number] ESTABILISHED PATIENT [facility] CHARGE DISPOSITION & COMMUNICATION FOLLOW UP REASON: BACK PAIN ELECTRONICALLY SIGNED BY NATHANAEL GRIFFIN ON 02/10/2020 AT 08:45 AM EDT DISCLAIMER : THIS IS A VISIT SUMMARY EXTRACTED FROM THE [employer] CHART. IT IS NOT A COPY OF THE [employer] PROGRESS NOTE. GLENYSD
== END ==
LOC: M PAIN 09:30
PROVIDERS: ATTEND Family Medicine
DX: M47.817 Spondylosis without myelopathy or radiculopathy, lumbosacral region (principal); I10 Essential (primary) hypertension; M79.10 Myalgia, unspecified site; F17.210 Nicotine dependence, cigarettes, uncomplicated; Z88.6 Allergy status to analgesic agent; Z79.891 Long term (current) use of opiate analgesic; Z79.899 Other long term (current) drug therapy

== ENCOUNTER → 2020-02-28 | Outpatient (CLI) | payer OTHER | LOC: M LABSMTC 09:51 | PROVIDERS: ATTEND Anesthesiology | DX: Z11.59 Encounter for screening for other viral diseases (principal) | CPT/HCPCS: C9803; U0003 ==

== ENCOUNTER → 2020-03-02 | Outpatient (CLI) | payer OTHER ==
[2020-03-02 09:19] LABS: BASO % 0.6 % (0.0-1.0); EOS % 0.1 % (0.0-3.0); HEMATOCRIT 37.9 % (42.0-52.0); HEMOGLOBIN 12.4 g/dl (13.5-17.5); LYMPH # 1.3 10^3/uL (1.5-5.0); LYMPH % 19.8 % (24.0-44.0); MEAN CORPUSCULAR HEMOGLOBIN 30.1 pg (27.0-33.0); MEAN CORPUSCULAR HGB CONC 32.7 g/dl (32.0-36.5); MONO # 0.8 10^3/uL (0.0-0.8); MONO % 11.7 % (0.0-5.0); NEUTROPHILS # 4.6 10^3/uL (1.5-8.5); NEUTROPHILS % 67.7 % (36.0-66.0); PLATELET COUNT, AUTOMATED 244 10^3/uL (150-450); RED BLOOD COUNT 4.12 10^6/uL (4.30-6.10); WHITE BLOOD COUNT 6.7 10^3/uL (4.0-10.0)
[2020-03-02 09:55] LABS: ALBUMIN 3.8 GM/DL (3.2-5.2); ALT/SGPT 20 U/L (12-78); BILIRUBIN,TOTAL 0.5 MG/DL (0.2-1.0); BLOOD UREA NITROGEN 13 MG/DL (7-18); CALCIUM LEVEL 8.9 MG/DL (8.8-10.2); CARBON DIOXIDE LEVEL 29 MEQ/L (21-32); CHLORIDE LEVEL 107 MEQ/L (98-107); CHOLESTEROL LEVEL 173 MG/DL (<200); CHOLESTEROL RISK RATIO 3.844 (<5); CREATININE FOR GFR 0.98 MG/DL (0.70-1.30); FREE T4 0.97 NG/DL (0.76-1.46); GLOMERULAR FILTRATION RATE > 60.0 (>49); GLUCOSE, FASTING 99 MG/DL (70-100); HDL CHOLESTEROL 45 MG/DL (>40); LDL CHOLESTEROL 111 MG/DL (<100); NON-HDL-C 128 MG/DL; POTASSIUM SERUM 4.1 MEQ/L (3.5-5.1); SODIUM LEVEL 141 MEQ/L (136-145); THYROID STIMULATING HORMONE 0.807 uIU/ML (0.358-3.740); TOTAL PROTEIN 6.7 GM/DL (6.4-8.2); TRIGLYCERIDES LEVEL 84 MG/DL (<150)
[2020-03-02 10:25] LABS: HEMOGLOBIN A1c 5.9 %
[2020-03-02 14:17] LABS: TOTAL 25(OH) VITAMIN D 43.3 NG/ML (30.0-100.0)
[2020-03-04 04:12] LABS: PSA TOTAL 0.5 ng/mL (0.0-4.0)
== END ==
LOC: M LAB 08:27
PROVIDERS: ATTEND Physician Assistant
DX: Z13.220 Encounter for screening for lipoid disorders (principal)

== ENCOUNTER → 2020-03-02 | Outpatient (CLI) | payer OTHER ==
[~2020-03-02] MED LIST changes: +TRIAMCINOLONE ACETONIDE SUSP 40 MG/ML VIAL (J3301) As Ordered ONE; -dexameTHASONE 10MG/1ML VIAL PRES.FREE (J1100 PER 1MG) As Ordered ONE
--- NOTE | 2020-03-02 10:49 | REP ---
Partial lumbar spine series: Two views . History: Injection procedure for pain. 37 seconds of fluoroscopy time is reported. Findings: A sequence of two fluoroscopically obtained last image hold procedural spot radiographs of the lumbar spine document needle position and contrast injection associated with injection procedure. Electronically Signed by Jose Nova MD 03/02/2020 10:41 A
--- NOTE | 2020-03-03 01:22 | ECWPNPC ---
PATIENT NAME: DEVIN POLLARD : 1960 GENDER: MALE VISIT DATE: 03/02/2020 DISCHARGE DATE: 03/02/20 1024 VISIT LOCKED DATE TIME: PHYSICIAN: CINDY ESCOBAR MD RESOURCE: CINDY ESCOBAR MD REASON FOR APPOINTMENT 1. CROW THERAPEUTIC FACET BLOCK L4/L5, L5/S1/PAT DONE HISTORY OF PRESENT ILLNESS GENERAL: -. FALL RISK SCREENING: SCREENING :TWO OR MORE FALLS WITHOUT INJURY IN THE PAST YEAR BRUISES BUT NO MAJOR INJURY. STATES FALLING IS BECOMING MORE FREQUENT PAIN SCREENING: PATIENT HAS A COMPLAINT OF ACUTE OR CHRONIC PAIN :YES LOCATION OF PAIN:LOW BACK, LEG(S) SLIGHT PAIN AND NUMBNESS IN LEFT LEG THAT HAS PROGRESSED OVER THE PAST MONTH INTENSITY OF PAIN (SCALE OF 1 TO 10):6 WHAT DOES YOUR PAIN FEEL LIKE:ACHING, BURNING, CONTINOUS, SHARP, STABBING, TENDER, THROBBING, SORE, SHOOTING VARIES IN INTENSITY AND DESCRIPITION DURATION:CONTINOUS, CONSTANT, AWAKENS FROM SLEEP PAIN IS INCREASED BY: PROLONGED STANDING AND WALKING AND INACTIVITY PAIN IS DECREASED BY: ALTERING ACTIVITY NURSING NOTE: -. PAIN CENTER INTAKE QUESTIONS: DO YOU HAVE A HISTORY OF MRSA? :NO DO YOU TAKE A BLOOD THINNERS? :NO DO YOU HAVE ANY BLEEDING DISORDERS? :NO ANY NEW NUMBNESS OR WEAKNESS IN YOUR LEGS OR ARMS? :YES NUMBNESS LEFT LEG THAT HAS DEVELOPED OVER THE PAST MONTH AND HAS BEEN GETTING WORSE. HAS HAD AN INCREASE IN FALLS DUE TO THIS ANY PACEMAKER,DEFIBRILLATOR, OR DORSAL COLUMN STIMULATOR? :NO DO YOU HAVE ANY RASHES OR OPEN SORES? :NO ARE YOU ALLERGIC TO IV DYE? :NO ARE YOU DIABETIC? :NO ANY NEW PROBLEMS WITH YOUR MEDICATIONS? :NO NOT EFFECTIVE IT WAS HAVE YOU RECEIVED A VACCINE IN THE PAST 30 DAYS? :NO DO YOU PLAN TO RECEIVE A VACCINE IN THE NEXT 21 DAYS? :NO DO YOU TAKE ANY IMMUNOSUPPRESSIVE MEDICATIONS? :NO ANY HISTORY OF SEIZURES? :NO ANY HISTORY OF CARDIAC ISSUES OR EVENTS? :NO DO YOU HAVE SLEEP APNEA? : NO. ANY RECENT HEAD INJURY? :NO DO YOU HAVE ANY NEW INFECTIONS? :NO IS THERE A CHANCE YOU COULD BE ? :NO ARE YOU BREAST FEEDING? :NO WHEN DID YOU LAST EAT? : -LAST NIGHT 2100 WHEN DID YOU LAST DRINK? : -THIS MORNING AT 0400 WHAT DID YOU LAST DRINK? : -WATER NAME OF PERSON DRIVING YOU HOME? : -HOOD DO YOU HAVE ANY OTHER QUESTIONS OR CONCERNS? : WANTS TO USE KENALOG CURRENT MEDICATIONS TAKING AZELASTINE HCL 0.1 % SOLUTION 2 PUFFS IN EACH NOSTRIL NASALLY TWICE A DAY, NOTES: NOT LATELY TAKING AMLODIPINE BESYLATE 10 MG TABLET 1 TABLET ORALLY ONCE A DAY, NOTES: 03-01-20799 TAKING LISINOPRIL 40 MG TABLET 1 TABLET ORALLY ONCE A DAY, NOTES: 1399 TAKING FERROUS SULFATE 325 MG CAPSULE 1 CAP ORALLY DAILY, NOTES: 03-01-202199 TAKING MULTIVITAMIN - TABLET CHEWABLE 1 CAP ORALLY DAILY, NOTES: 03-01-20899 TAKING VITAMIN B COMPLEX - TABLET 1 TAB ORALLY DAILY, NOTES: 03-01-20899 TAKING VITAMIN D3 1000 UNIT CAPSULE 2 CAPSULE ORALLY ONCE A DAY, NOTES: 03-01-20899 TAKING TYLENOL EXTRA STRENGTH 500 MG TABLET 2 TABLET NEEDED ORALLY EVERY 6 HRS, NOTES: 03-02-20799 TAKING LIDOCAINE 5 % PATCH 1 PATCH TO SKIN REMOVE AFTER 12 HOURS EXTERNALLY ONCE A DAY, NOTES: NOT ON NOW TAKING GABAPENTIN 400 MG CAPSULE 2 CAPSULE ORALLY THREE TIMES DAILY, NOTES: 03-02-20599 TAKING NUCYNTA ER 200 MG TABLET EXTENDED RELEASE 12 HOUR 1 TABLET ORALLY EVERY 12 HRS, NOTES: 03-02-20599 TAKING METHOCARBAMOL 500 MG TABLET 1 TABLET ORALLY THREE TIMES DAILY, 2 TABS @ HS, NOTES: 03-02-20599 TAKING NORCO 10-325 MG TABLET 1/2 TO 1 TABLET NEEDED ORALLY BID, NOTES: 599 NOT-TAKING MAGNESIUM OXIDE 400 MG TABLET 1 TABLET NEEDED ORALLY ONCE A DAY NOT-TAKING NUCYNTA 75 MG TABLET 1 TABLET ORALLY THREE TIMES DAILY NEEDED NOT-TAKING HYDROCODONE-ACETAMINOPHEN 5-300 MG TABLET DIRECTED ORALLY MDD=4 NOT-TAKING MAY USE CBD OIL MEDICATION LIST REVIEWED AND RECONCILED WITH THE PATIENT PAST MEDICAL HISTORY HTN LBP MYALGIA ALLERGIES NSAIDS: ANAPHYLAXIS - ALLERGY SURGICAL HISTORY APPENDECTOMY 1973 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 3 SON(S) , 1 DAUGHTER(S) - HEALTHY. SOCIAL HISTORY GENERAL: TOBACCO USE ARE YOU A:CURRENT SMOKER ARE YOU INTERESTED IN QUITTING?NOT READY TO QUIT COUNSELED THE PATIENT ON SMOKING EFFECTS, EDUCATION [id number]/01/2020 HOW MANY CIGARETTES A DAY DO YOU SMOKE?6-10 PATIENT COUNSELED ON THE DANGERS OF TOBACCO USE AND URGED TO QUIT:03/01/2020 SMOKING CESSATION INFORMATION GIVEN02/09/2020 LATEX QUESTIONNAIRE LATEX ALLERGY : HAVE YOU EVER DEVELOPED ANY TYPE OF REACTION AFTER HANDLING LATEX PRODUCTS SUCH RUBBER GLOVES, CONDOMS, DIAPHRAGMS, BALLOONS, SOCKS, OR UNDERWEAR?NO LATEX ALLERGY : HAVE YOU EVER DEVELOPED ANY TYPE OF REACTION DURING OR AFTER DENTAL APPOINTMENT, VAGINAL/RECTAL EXAMINATION, SURGICAL PROCEDURE, OR ANY OTHER EXPOSURE?NO LATEX RISK : HAVE YOU EVER HAD ANY DIFFICULTY BREATHING OR HIVES AFTER EATING OR HANDLING ANY FRUITS, OR VEGETABLES; SUCH KIWI, BANANAS, STONE FRUITS, OR CHESTNUTSNO LATEX RISK : DO YOU HAVE A PREVIOUS PERSONAL HISTORY OF MORE THAN NINE SURGERIES, SPINA BIFIDA, OR REPEATED CATHERIZATIONS? NO LATEX RISK : ARE YOU FREQUENTLY EXPOSED TO LATEX PRODUCTS IN YOUR OCCUPATION?NO DATE ASKED : 03/01/2020 ALCOHOL SCREENING DID YOU HAVE A DRINK CONTAINING ALCOHOL IN THE PAST YEAR?NO POINTS0 INTERPRETATIONNEGATIVE RECREATIONAL DRUG USE DRUG USE?NO JUDAISM [id number] ZOROASTRIAN LANGUAGE LANGUAGES SPOKEN:DJIBOUTIAN EDUCATION LEVEL OF EDUCATION:NOT FINISHED COLLEGE LEARNING BARRIERS / SPECIAL NEEDS BARRIERS TO LEARNING?NO HEARING IMPAIRED?NO VISION IMPAIRED?YES :CORRECTIVE LENSES COGNITIVELY IMPAIRED?NO READINESS TO LEARN?YES LEARNING PREFERENCES?NO LEARNING CAPABILITIES PRESENT?YES EMOTIONAL BARRIERS?NO SPECIAL DEVICES?NO AUTOMATION TECHNOLOGIST NEEDED?NO DOMESTIC VIOLENCE DO YOU FEEL SAFE IN YOUR ENVIRONMENT?YES 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 NEW PATIENT PAIN DIARY TODAY'S VISIT 03/01/20, PATIENT DESCRIBES PAIN : ACHING, BURNING, HAVE IT ALL THE TIME, SHARP, STABBING, TENDER, THROBBING, SORE, SHOOTING, OTHER LOCALIZED, NUMBNESS DOWN LEFT LEG-FEELS LIKE PINS AND NEEDLES-OVER THE PAST MONTH. THE PAIN IS CONSTANT BUT THE INTENSITY AND THE DECRIPTIONS WILL VARY, FROM 0-10, WHAT LEVEL IS YOUR PAIN TODAY? 6, PRECIPITATING FACTORS WORSE WITH STANDING OR WALKING, INACTIVITY, ALLEVIATING FACTORS CHANGE OF ACTIVITY. PAIN CLINIC PFS, CLERGY, PUBLIC HEALTH REFERRALS PFS REFERRAL NEEDED?NO CLERGY REFERRAL NEEDED?NO PUBLIC HEALTH REFERRAL NEEDED?NO HAS THE PATIENT BEEN EDUCATED REGARDING HIS/HER PLAN OF CARE?YES HAS THE PATIENT BEEN EDUCATED REGARDING PAIN, THE RISK FOR PAIN, THE IMPORTANCE OF EFFECTIVE PAIN MANAGEMENT, AND THE PAIN ASSESSMENT PROCESS?YES ADVANCE DIRECTIVE ADVANCE DIRECTIVE DISCUSSED WITH PATIENT:YES 03/01/2020 PT HAS NO ADVANCED DIRECTIVES, AND HE DECLINES INFORMATION ON HCP AT THIS TIME. HOSPITALIZATION/MAJOR DIAGNOSTIC PROCEDURE SURGERY VITAL SIGNS WT 173.6 LBS, HT 72 IN, BMI 23.54 INDEX, BP 135/87 MM HG, HR 67 /MIN, RR 18 /MIN, TEMP 98.1 F, OXYGEN SAT % 97%, NA INITIALS AW 0859, REVIEWED BY: KG. EXAMINATION GENERAL EXAMINATION: THE PATIENT IS ALERT, ORIENTED TIMES THREE AND COOPERATIVE. HEART SHOWS REGULAR RHYTHM, NO MURMURS AND NO GALLOPS. LUNGS ARE CLEAR TO AUSCULTATION. ASSESSMENTS SPONDYLOSIS WITHOUT MYELOPATHY OR RADICULOPATHY, LUMBAR REGION - M47.816 (PRIMARY) SPONDYLOSIS WITHOUT MYELOPATHY OR RADICULOPATHY, LUMBOSACRAL REGION - M47.817 TREATMENT SPONDYLOSIS WITHOUT MYELOPATHY OR RADICULOPATHY, LUMBOSACRAL REGION SMC FACET BLOCK (PAIN)[id number] PROCEDURES PAIN NURSING RECORD PRE-PROCEDURE IV SITE N/A, PRE-PROCEDURE ORAL MEDICATIONS VALIUM 10 MG 0919 PO GARCIA RN OXYCODONE 10 MG 19 PO GARCIA ASHLEYPARQUET FLOOR LAYER'S HELPER IN ROOM 0940, PHYSICIAN IN ROOM 0945, START 0952, FINISH 1003, PHYSICIAN OUT OF ROOM 1006, OUT OF ROOM 1010, STEROID KENELOG, ECG NORMAL SINUS, PATIENT SHIELDED YES, SAFETY STRAP YES, PREP Rafa LOPEZ RN, DRESSING TEGADERM LOC: 1. ALERT, ORIENTED RESP: 1. REGULAR, NO DYSPNEA COLOR: 2., 1. PINK SKIN: 1. WARM, DRY POSITION: 1. PRONE VITALS: 111/62 65 98% 18 GARCIA RN 0945 110/63 65 97% 18 GARCIA RN 1000 DISCHARGE: POST PAIN 3, DRESSING SITE DRY AND CLEAR, TEACHING COMPLETED, PATIENT ACKNOWLEDGES UNDERSTANDING COMPLETED ENTIRE DC INCLUDING THE PAIN DIARY PT VERBALIZES UNDERSTANDING, PATIENT DISCHARGED AT 1120 PN LUMBAR FACET BLOCK THERAPEUTIC PRE PROCEDURE DIAGNOSIS LUMBAR SPONDYLOSIS, LUMBOSACRAL SPONDYLOSIS POST PROCEDURE DIAGNOSIS LUMBAR SPONDYLOSIS, LUMBOSACRAL SPONDYLOSIS PROCEDURE BILATERAL L4-L5 AND BILATERAL L5-S1 LUMBAR FACET THERAPEUTIC BLOCK SURGEON DR. CINDY ESCOBAR CUSTOMER ACCOUNT EXECUTIVE NONE ANESTHESIA LOCAL PRE PROCEDURE NOTE THE PATIENT HAS A HISTORY OF CHRONIC LOW BACK PAIN. I EVALUATED THE PATIENT AND REVIEWED THE CHART. I WENT OVER THE RISKS, ALTERNATIVES, AND BENEFITS ASSOCIATED WITH THIS PROCEDURE. I DISCUSSED THAT THE USE OF STEROIDS MAY CONTRIBUTE TO IMMUNOSUPPRESSION OF THE PATIENT'S BODY AGAINST INFECTIONS SUCH COVID-19. THE PATIENT IS AWARE OF THE POTENTIAL COMPLICATIONS ASSOCIATED WITH THIS VIRUS, INCLUDING, BUT NOT LIMITED TO, . I DISCUSSED THE USE OF DEXAMETHASONE INSTEAD OF KENALOG; HOWEVER, THE PATIENT STATES THAT THE DEXAMETHASONE DID NOT GIVE LONG LASTING PAIN RELIEF THE LAST INJECTION. THE PATIENT WOULD LIKE TO MOVE FORWARD WITH KENALOG. THE PATIENT WOULD LIKE TO PROCEED AND GIVES CONSENT TO PERFORM THE PROCEDURE. THE PATIENT DENIES UNEXPLAINABLE WEIGHT LOSS, FEVER, CHILLS, OR NEW CHANGES IN URINARY OR BOWEL CONTROL. THE PATIENT IS COVID-19 NEGATIVE DESCRIPTION OF PROCEDURE THE PATIENT WAS BROUGHT TO THE PROCEDURE ROOM AND PLACED IN THE PRONE POSITION. THE LUMBOSACRAL AREA WAS CLEANED WITH CHLORAPREP SOLUTION AND DRAPED ASEPTICALLY. THE PROCEDURE WAS DONE UNDER STERILE CONDITIONS. A TIMEOUT WAS PERFORMED WHERE LATERALITY AND THE SITE OF THE PROCEDURE WERE CHECKED AND CONFIRMED WITH EVERYONE IN THE ROOM. UNDER FLUOROSCOPIC GUIDANCE, THE TARGET POINT WAS SELECTED AT THE RIGHT AND LEFT L4-L5 AND RIGHT AND LEFT L5-S1 FACET JOINTS. TARGET POINT WAS SELECTED AFTER LATERAL ROTATION AND TILT OF THE MAGNIFIER OF THE C-ARM. LIDOCAINE 0.5% WAS USED TO NUMB THE SKIN AND THE SUBCUTANEOUS TISSUE BELOW IT. SPINAL NEEDLES, 22-GAUGE, WERE ADVANCED UNDER FLUOROSCOPIC GUIDANCE AND FOLLOWING PATIENT FEEDBACK UNTIL THE TARGETS WERE TOUCHED. THE POSITION OF THE NEEDLES WAS VERIFIED WITH AP AND LATERAL VIEWS. AFTER PROPER POSITION OF THE NEEDLES WAS ACHIEVED, ISOVUE-M DYE 30%, 0.1 ML, WAS INJECTED SHOWING ADEQUATE SPREAD OF THE DYE. KENALOG 20 MG WAS INJECTED AT EACH SITE. THEN A SOLUTION OF 1.0 ML OF BUPIVACAINE 0.125% OF WAS USED TO FLUSH EACH SITE. THERE WAS NO EVIDENCE OF BLOOD, PARESTHESIA OR CEREBROSPINAL FLUID DURING THE PROCEDURE. THE PATIENT WAS SENT TO THE RECOVERY ROOM. THE PATIENT WAS MOVING THE EXTREMITIES AND DOING WELL. THERE WERE NO COMPLICATIONS DURING THE PROCEDURE. EBL LESS THAN 5 ML. FLUOROSCOPY TIME WAS 37 SECONDS POST PROCEDURE NOTE THE PATIENT WILL BE SEEN IN A FOLLOW UP IN THE NEXT FEW WEEKS. I AM LOOKING FOR LONG LASTING RELIEF FOR THE PATIENT WITH THIS INTERVENTION. INSTRUCTIONS WERE GIVEN, QUESTIONS WERE ANSWERED, AND THE PATIENT EXPRESSED UNDERSTANDING AND AGREES WITH THE PLAN. THE PATIENT IS AWARE TO STAY HOME FOR THE NEXT WEEK, IF POSSIBLE, DUE TO COVID-19. I, RAJI SANTANA, DOCUMENTED THE ABOVE INFORMATION ACTING A SCRIBE FOR DR. ESCOBAR. I HAVE REVIEWED THE ABOVE DOCUMENT, WRITTEN BY RAJI SANTANA, FACILITIES MAINTENANCE SUPERVISOR, AND I VERIFY THAT IT IS ACCURATE 0. PROCEDURE CODES [id number] INJ PARAVERT F JNT L/S 1 LEV, MODIFIERS: 50 [id number] INJ PARAVERT F JNT L/S 2 LEV, MODIFIERS: 50 DISPOSITION & COMMUNICATION FOLLOW UP F/UP WITH CHAR CONVEYOR TENDER CELLAR (REASON: POST LFBT CROW L4-L5, L5-S1) ELECTRONICALLY SIGNED BY CINDY ESCOBAR MD, MD ON 03/02/2020 AT 01:46 PM EDT DISCLAIMER : THIS IS A VISIT SUMMARY EXTRACTED FROM THE [employer] CHART. IT IS NOT A COPY OF THE [employer] PROGRESS NOTE. MTDD
== END ==
LOC: M PAIN 09:00
PROVIDERS: ATTEND Anesthesiology
DX: M47.816 Spondylosis without myelopathy or radiculopathy, lumbar region (principal); M47.817 Spondylosis without myelopathy or radiculopathy, lumbosacral region
CPT/HCPCS: 64493; 64494; J3301; Q9967

== ENCOUNTER → 2020-03-15 | Outpatient (CLI) | payer OTHER ==
--- NOTE | 2020-03-17 00:51 | ECWPNPC ---
PATIENT NAME: DEVIN POLLARD : 1960 GENDER: MALE VISIT DATE: 03/15/2020 DISCHARGE DATE: 03/15/20910 VISIT LOCKED DATE TIME: PHYSICIAN: DEVORAH SMITH RESOURCE: DEVORAH SMITH REASON FOR APPOINTMENT 1. POST PROC HISTORY OF PRESENT ILLNESS GENERAL: - 59-YEAR-OLD MALE IN FOR POST THERAPEUTIC FACET BLOCK FOLLOW-UP. HE FEELS THE PROCEDURE WAS SUCCESSFUL RATING HIS PAIN PREPROCEDURE AT A 7 OUT OF 10 AND POSTPROCEDURE AT A 0-3 OUT OF 10. HE FURTHER STATES THE PROCEDURE CONTINUES TO HELP HIM TODAY. FALL RISK SCREENING: SCREENING :ONE FALL WITHOUT INJURY IN THE PAST YEAR PAIN SCREENING: PATIENT HAS A COMPLAINT OF ACUTE OR CHRONIC PAIN :NO CGY-FPNDGMSKH-3/10, SPJM-BVSKNODYX-3/10, TODAY-0-09/19 NURSING NOTE: PT. STATED PROCEDURE HELPED-. PAIN CENTER INTAKE QUESTIONS: DO YOU HAVE A HISTORY OF MRSA? :NO DO YOU TAKE A BLOOD THINNERS? :NO DO YOU HAVE ANY BLEEDING DISORDERS? :NO ANY NEW NUMBNESS OR WEAKNESS IN YOUR LEGS OR ARMS? :NO ANY PACEMAKER,DEFIBRILLATOR, OR DORSAL COLUMN STIMULATOR? :NO DO YOU HAVE ANY RASHES OR OPEN SORES? :NO ARE YOU ALLERGIC TO IV DYE? :NO ARE YOU DIABETIC? :NO ANY NEW PROBLEMS WITH YOUR MEDICATIONS? :NO HAVE YOU RECEIVED A VACCINE IN THE PAST 30 DAYS? :NO DO YOU PLAN TO RECEIVE A VACCINE IN THE NEXT 21 DAYS? :NO DO YOU NEED ANY PRESCRIPTION? :NO DO YOU TAKE ANY IMMUNOSUPPRESSIVE MEDICATIONS? :NO IS THERE A CHANCE YOU COULD BE ? :NO ARE YOU BREAST FEEDING? :NO CURRENT MEDICATIONS TAKING AZELASTINE HCL 0.1 % SOLUTION 2 PUFFS IN EACH NOSTRIL NASALLY TWICE A DAY, NOTES: NOT LATELY TAKING LISINOPRIL 40 MG TABLET 1 TABLET ORALLY ONCE A DAY, NOTES: 1399 TAKING FERROUS SULFATE 325 MG CAPSULE 1 CAP ORALLY DAILY, NOTES: 03-01-202199 TAKING MULTIVITAMIN - TABLET CHEWABLE 1 CAP ORALLY DAILY, NOTES: 03-01-20899 TAKING VITAMIN B COMPLEX - TABLET 1 TAB ORALLY DAILY, NOTES: 03-01-20899 TAKING VITAMIN D3 1000 UNIT CAPSULE 2 CAPSULE ORALLY ONCE A DAY, NOTES: 03-01-20899 TAKING TYLENOL EXTRA STRENGTH 500 MG TABLET 2 TABLET NEEDED ORALLY EVERY 6 HRS, NOTES: 03-02-20799 TAKING LIDOCAINE 5 % PATCH 1 PATCH TO SKIN REMOVE AFTER 12 HOURS EXTERNALLY ONCE A DAY, NOTES: NOT ON NOW TAKING GABAPENTIN 400 MG CAPSULE 2 CAPSULE ORALLY THREE TIMES DAILY, NOTES: 03-02-20599 TAKING NUCYNTA ER 200 MG TABLET EXTENDED RELEASE 12 HOUR 1 TABLET ORALLY EVERY 12 HRS, NOTES: 03-02-20599 TAKING METHOCARBAMOL 500 MG TABLET 1 TABLET ORALLY THREE TIMES DAILY, 2 TABS @ HS, NOTES: 03-02-20599 TAKING NORCO 10-325 MG TABLET 1/2 TO 1 TABLET NEEDED ORALLY BID, NOTES: 599 NOT-TAKING AMLODIPINE BESYLATE 10 MG TABLET 1 TABLET ORALLY ONCE A DAY, NOTES: 03-01-20799 NOT-TAKING MAGNESIUM OXIDE 400 MG TABLET 1 TABLET NEEDED ORALLY ONCE A DAY NOT-TAKING NUCYNTA 75 MG TABLET 1 TABLET ORALLY THREE TIMES DAILY NEEDED NOT-TAKING HYDROCODONE-ACETAMINOPHEN 5-300 MG TABLET DIRECTED ORALLY MDD=4 NOT-TAKING MAY USE CBD OIL MEDICATION LIST REVIEWED AND RECONCILED WITH THE PATIENT PAST MEDICAL HISTORY HTN LBP MYALGIA ALLERGIES NSAIDS: ANAPHYLAXIS - ALLERGY SURGICAL HISTORY APPENDECTOMY 1973 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 3 SON(S) , 1 DAUGHTER(S) - HEALTHY. SOCIAL HISTORY GENERAL: TOBACCO USE ARE YOU A:CURRENT SMOKER ARE YOU INTERESTED IN QUITTING?NOT READY TO QUIT COUNSELED THE PATIENT ON SMOKING EFFECTS, EDUCATION [id number]/06/2020 HOW MANY CIGARETTES A DAY DO YOU SMOKE?6-10 PATIENT COUNSELED ON THE DANGERS OF TOBACCO USE AND URGED TO QUIT:03/15/2020 SMOKING CESSATION INFORMATION GIVEN03/15/2020 LATEX QUESTIONNAIRE LATEX ALLERGY : HAVE YOU EVER DEVELOPED ANY TYPE OF REACTION AFTER HANDLING LATEX PRODUCTS SUCH RUBBER GLOVES, CONDOMS, DIAPHRAGMS, BALLOONS, SOCKS, OR UNDERWEAR?NO LATEX ALLERGY : HAVE YOU EVER DEVELOPED ANY TYPE OF REACTION DURING OR AFTER DENTAL APPOINTMENT, VAGINAL/RECTAL EXAMINATION, SURGICAL PROCEDURE, OR ANY OTHER EXPOSURE?NO LATEX RISK : HAVE YOU EVER HAD ANY DIFFICULTY BREATHING OR HIVES AFTER EATING OR HANDLING ANY FRUITS, OR VEGETABLES; SUCH KIWI, BANANAS, STONE FRUITS, OR CHESTNUTSNO LATEX RISK : DO YOU HAVE A PREVIOUS PERSONAL HISTORY OF MORE THAN NINE SURGERIES, SPINA BIFIDA, OR REPEATED CATHERIZATIONS? NO LATEX RISK : ARE YOU FREQUENTLY EXPOSED TO LATEX PRODUCTS IN YOUR OCCUPATION?NO DATE ASKED : 03/15/2020 ALCOHOL SCREENING DID YOU HAVE A DRINK CONTAINING ALCOHOL IN THE PAST YEAR?NO POINTS0 INTERPRETATIONNEGATIVE RECREATIONAL DRUG USE DRUG USE?NO [id number] L[employer] LANGUAGES SPOKEN:ARMENIAN EDUCATION LEVEL OF EDUCATION:NOT FINISHED COLLEGE LEARNING BARRIERS / SPECIAL NEEDS BARRIERS TO LEARNING?NO HEARING IMPAIRED?NO VISION IMPAIRED?YES COGNITIVELY IMPAIRED?NO :CORRECTIVE LENSES READINESS TO LEARN?YES LEARNING PREFERENCES?NO LEARNING CAPABILITIES PRESENT?YES EMOTIONAL BARRIERS?NO SPECIAL DEVICES?NO CLAMP JIG ASSEMBLER NEEDED?NO DOMESTIC VIOLENCE DO YOU FEEL SAFE IN YOUR ENVIRONMENT?YES 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 NEW PATIENT PAIN DIARY TODAY'S VISIT 03/01/20, PATIENT DESCRIBES PAIN : ACHING, BURNING, HAVE IT ALL THE TIME, SHARP, STABBING, TENDER, THROBBING, SORE, SHOOTING, OTHER LOCALIZED, NUMBNESS DOWN LEFT LEG-FEELS LIKE PINS AND NEEDLES-OVER THE PAST MONTH. THE PAIN IS CONSTANT BUT THE INTENSITY AND THE DECRIPTIONS WILL VARY, FROM 0-10, WHAT LEVEL IS YOUR PAIN TODAY? 6, PRECIPITATING FACTORS WORSE WITH STANDING OR WALKING, INACTIVITY, ALLEVIATING FACTORS CHANGE OF ACTIVITY. PAIN CLINIC PFS, CLERGY, PUBLIC HEALTH REFERRALS PFS REFERRAL NEEDED?NO CLERGY REFERRAL NEEDED?NO PUBLIC HEALTH REFERRAL NEEDED?NO HAS THE PATIENT BEEN EDUCATED REGARDING HIS/HER PLAN OF CARE?YES HAS THE PATIENT BEEN EDUCATED REGARDING PAIN, THE RISK FOR PAIN, THE IMPORTANCE OF EFFECTIVE PAIN MANAGEMENT, AND THE PAIN ASSESSMENT PROCESS?YES ADVANCE DIRECTIVE ADVANCE DIRECTIVE DISCUSSED WITH PATIENT:YES PT HAS NO ADVANCED DIRECTIVES, AND HE DECLINES INFORMATION ON HCP AT THIS TIME. HOSPITALIZATION/MAJOR DIAGNOSTIC PROCEDURE SURGERY REVIEW OF SYSTEMS CONSTITUTIONAL: ANY RECENT FEVER NO . CHILLS NO . WEIGHT CHANGE OF UNKNOWN REASONS NO . GASTROENTEROLOGY: NEW UNEXPLAINABLE CHANGES IN BOWEL CONTROL NO . CONSTIPATION NO . GENITOURINARY: ANY NEW CHANGE IN BLADDER CONTROL? NO . NEUROLOGY: NEW ONSET DIZZINESS OR NEUROLOGICAL CHANGES NOT MENTIONED NO . NEW NUMBNESS OR PAIN PATTERNS NOT MENTIONED AND PERTINENT TO TODAY'S VISIT NO . CARDIOLOGY: NEW CHEST PRESSURE NO . NEW CHEST PAIN NO . RESPIRATORY: UNEXPLAINABLE COUGH NO . NEW SHORTNESS OF BREATH NO . VITAL SIGNS WT 178.2 LBS, HT 72 IN, BMI 24.17 INDEX, BP 148/80 MM HG, HR 73 /MIN, RR 18 /MIN, TEMP 97.0 F, OXYGEN SAT % 96%, SAFE IN ENV? (Y/N) YES, NA INITIALS AW [id number] TECH. EXAMINATION GENERAL EXAMINATION: GENERALNO ACUTE DISTRESS, WELL NOURISHED AND HYDRATED. PSYCHAPPROPRIATE MOOD AND AFFECT . LUNGS:CLEAR TO AUSCULTATION BILATERALLY, NO WHEEZES, RHONCHI, RALES. HEART:NO MURMURS, REGULAR RATE AND RHYTHM. ASSESSMENTS SPONDYLOSIS WITHOUT MYELOPATHY OR RADICULOPATHY, LUMBOSACRAL REGION - M47.817 (PRIMARY) TREATMENT SPONDYLOSIS WITHOUT MYELOPATHY OR RADICULOPATHY, LUMBOSACRAL REGION CLINICAL NOTES: 59-YEAR-OLD MALE IN FOR POST THERAPEUTIC FACET BLOCK FOLLOW-UP. GIVEN PRESENTING SYMPTOMS RECOMMEND FOLLOW-UP IN CLINIC IN 2 MONTHS. PATIENT HAS EXPRESSED UNDERSTANDING OF AND WAS IN AGREEMENT WITH TREATMENT PLAN. GIVEN TIME TO ASK QUESTIONS AND EXPRESS CONCERNS. PROCEDURE CODES FA211 ESTABILISHED PATIENT [facility] FACILITY CHARGE DISPOSITION & COMMUNICATION FOLLOW UP 2 MONTHS (REASON: BACK PAIN) ELECTRONICALLY SIGNED BY NATHANAEL GRIFFIN ON 03/16/2020 AT 07:46 AM EDT DISCLAIMER : THIS IS A VISIT SUMMARY EXTRACTED FROM THE [employer] CHART. IT IS NOT A COPY OF THE [employer] PROGRESS NOTE. TIMUR
== END ==
LOC: M PAIN 08:45
PROVIDERS: ATTEND Family Medicine
DX: M47.817 Spondylosis without myelopathy or radiculopathy, lumbosacral region (principal)

== ENCOUNTER → 2020-05-24 | Outpatient (CLI) | payer OTHER | LOC: M PAIN 08:52 | PROVIDERS: ATTEND Family Medicine | DX: M47.817 Spondylosis without myelopathy or radiculopathy, lumbosacral region (principal) ==

== ENCOUNTER → 2020-06-03 | Outpatient (CLI) | payer OTHER | LOC: M LABSMTC 11:16 | PROVIDERS: ATTEND Anesthesiology | DX: Z20.828 Contact with and (suspected) exposure to other viral communicable diseases (principal) | CPT/HCPCS: C9803; U0003 ==

== ENCOUNTER → 2020-06-08 | Outpatient (CLI) | payer OTHER ==
--- NOTE | 2020-06-16 11:58 | REP ---
C-ARM VIEWS LOWER LUMBAR SPINE: HISTORY: Pain. FINDINGS: 4 C-arm views lower lumbar spine performed during bilateral lumbar facet injections performed by Dr. Nevarez. Two needles are seen along the lower lumbar facet joints bilaterally and a small amount of contrast is injected. 39 seconds of fluoroscopy time is utilized. TIMUR
== END ==
LOC: M PAIN 09:40
PROVIDERS: ATTEND Anesthesiology
DX: M47.816 Spondylosis without myelopathy or radiculopathy, lumbar region (principal); M47.817 Spondylosis without myelopathy or radiculopathy, lumbosacral region

== ENCOUNTER → 2020-06-21 | Outpatient (CLI) | payer OTHER ==
--- NOTE | 2020-06-22 13:25 | ECWPNPC ---
PATIENT NAME: DEVIN POLLARD : 1960 GENDER: MALE VISIT DATE: 06/21/2020 DISCHARGE DATE: 06/21/20 1026 VISIT LOCKED DATE TIME: PHYSICIAN: DEVORAH SMITH RESOURCE: DEVORAH SMITH REASON FOR APPOINTMENT 1. [POST THERA CROW FACET BLOCK HISTORY OF PRESENT ILLNESS DEPRESSION SCREENING: PHQ-2 (2015 EDITION) LITTLE INTEREST OR PLEASURE IN DOING THINGS?NOT AT ALL FEELING DOWN, DEPRESSED, OR HOPELESS?NOT AT ALL TOTAL SCORE0 60-YEAR-OLD MALE IN FOR POST THERAPEUTIC BILATERAL FACET BLOCK FOLLOW-UP. HE FEELS THE PROCEDURE WAS SUCCESSFUL RATING HIS PAIN PREPROCEDURE AT AN 8 OUT OF 10 AND POSTPROCEDURE AT A 0-3 OUT OF 10. HE FURTHER STATES PROCEDURE CONTINUES TO HELP HIM TODAY HE RATES HIS PAIN A 3 OUT OF 10. GENERAL: -. FALL RISK SCREENING: SCREENING :ONE FALL WITHOUT INJURY IN THE PAST YEAR PATIENT FELL ONE MONTH AGO THAT RESULTED IN SORENESS AND BRUISING. PATIENT STATES HE DID NOT SEEK MEDICAL TREATMENT. PAIN SCREENING: PATIENT HAS A COMPLAINT OF ACUTE OR CHRONIC PAIN :YES LOCATION OF PAIN:LOW BACK INTENSITY OF PAIN (SCALE OF 1 TO 10):3 WHAT DOES YOUR PAIN FEEL LIKE:ACHING, BURNING, SHARP, STABBING, THROBBING, SORE, SHOOTING DURATION:CONTINOUS, INTERMITTENT, AWAKENS FROM SLEEP PAIN IS INCREASED BY:ACTIVITIES PAIN IS DECREASED BY:USE OF PAIN MEDICATIONS, OTHERS MEDICATIONS, HEAT AND PROCEDURES HELP TO REDUCE PAIN. NURSING NOTE: -. PAIN CENTER INTAKE QUESTIONS: DO YOU HAVE A HISTORY OF MRSA? :NO DO YOU TAKE A BLOOD THINNERS? :NO DO YOU HAVE ANY BLEEDING DISORDERS? :NO ANY NEW NUMBNESS OR WEAKNESS IN YOUR LEGS OR ARMS? :NO ANY PACEMAKER,DEFIBRILLATOR, OR DORSAL COLUMN STIMULATOR? :NO DO YOU HAVE ANY RASHES OR OPEN SORES? :NO ARE YOU ALLERGIC TO IV DYE? :NO ARE YOU DIABETIC? :NO ANY NEW PROBLEMS WITH YOUR MEDICATIONS? :NO HAVE YOU RECEIVED A VACCINE IN THE PAST 30 DAYS? :YES PATIENT RECIEVED A FLU SHOT 2-3 WEEKS AGO. DO YOU PLAN TO RECEIVE A VACCINE IN THE NEXT 21 DAYS? :NO DO YOU NEED ANY PRESCRIPTION? :NO DO YOU TAKE ANY IMMUNOSUPPRESSIVE MEDICATIONS? :NO IS THERE A CHANCE YOU COULD BE ? :NO ARE YOU BREAST FEEDING? :NO CURRENT MEDICATIONS TAKING AZELASTINE HCL 0.1 % SOLUTION 2 PUFFS IN EACH NOSTRIL NASALLY TWICE A DAY, NOTES: NOT LATELY TAKING LISINOPRIL 40 MG TABLET 1 TABLET ORALLY ONCE A DAY, NOTES: 1399 TAKING FERROUS SULFATE 325 MG CAPSULE 1 CAP ORALLY DAILY, NOTES: 03-01-202199 TAKING MULTIVITAMIN - TABLET CHEWABLE 1 CAP ORALLY DAILY, NOTES: 03-01-20899 TAKING VITAMIN B COMPLEX - TABLET 1 TAB ORALLY DAILY, NOTES: 03-01-20899 TAKING VITAMIN D3 1000 UNIT CAPSULE 2 CAPSULE ORALLY ONCE A DAY, NOTES: 03-01-20899 TAKING TYLENOL EXTRA STRENGTH 500 MG TABLET 2 TABLET NEEDED ORALLY EVERY 6 HRS, NOTES: 03-02-20799 TAKING LIDOCAINE 5 % PATCH 1 PATCH TO SKIN REMOVE AFTER 12 HOURS EXTERNALLY ONCE A DAY, NOTES: NOT ON NOW TAKING GABAPENTIN 400 MG CAPSULE 2 CAPSULE ORALLY THREE TIMES DAILY, NOTES: 03-02-20599 TAKING METHOCARBAMOL 500 MG TABLET 1 TABLET ORALLY THREE TIMES DAILY, 2 TABS @ HS, NOTES: 03-02-20599 TAKING NORCO 10-325 MG TABLET 1/2 TO 1 TABLET NEEDED ORALLY BID, NOTES: 599 TAKING MORPHINE SULFATE 60MG TABLET ER ORALLY NOT-TAKING NUCYNTA ER 200 MG TABLET EXTENDED RELEASE 12 HOUR 1 TABLET ORALLY EVERY 12 HRS, NOTES: 03-02-20599 NOT-TAKING AMLODIPINE BESYLATE 10 MG TABLET 1 TABLET ORALLY ONCE A DAY, NOTES: 03-01-20799 NOT-TAKING MAGNESIUM OXIDE 400 MG TABLET 1 TABLET NEEDED ORALLY ONCE A DAY NOT-TAKING NUCYNTA 75 MG TABLET 1 TABLET ORALLY THREE TIMES DAILY NEEDED NOT-TAKING HYDROCODONE-ACETAMINOPHEN 5-300 MG TABLET DIRECTED ORALLY MDD=4 NOT-TAKING MAY USE CBD OIL MEDICATION LIST REVIEWED AND RECONCILED WITH THE PATIENT PAST MEDICAL HISTORY HTN LBP MYALGIA ALLERGIES NSAIDS: ANAPHYLAXIS - ALLERGY SURGICAL HISTORY APPENDECTOMY 1973 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 3 SON(S) , 1 DAUGHTER(S) - HEALTHY. SOCIAL HISTORY GENERAL: TOBACCO USE ARE YOU A:CURRENT SMOKER ARE YOU INTERESTED IN QUITTING?NOT READY TO QUIT COUNSELED THE PATIENT ON SMOKING EFFECTS, EDUCATION [id number]/06/2020 HOW MANY CIGARETTES A DAY DO YOU SMOKE?31 OR MORE PATIENT COUNSELED ON THE DANGERS OF TOBACCO USE AND URGED TO QUIT:06/21/2020 SMOKING CESSATION INFORMATION GIVEN03/15/2020 LATEX QUESTIONNAIRE LATEX ALLERGY : HAVE YOU EVER DEVELOPED ANY TYPE OF REACTION AFTER HANDLING LATEX PRODUCTS SUCH RUBBER GLOVES, CONDOMS, DIAPHRAGMS, BALLOONS, SOCKS, OR UNDERWEAR?NO LATEX ALLERGY : HAVE YOU EVER DEVELOPED ANY TYPE OF REACTION DURING OR AFTER DENTAL APPOINTMENT, VAGINAL/RECTAL EXAMINATION, SURGICAL PROCEDURE, OR ANY OTHER EXPOSURE?NO LATEX RISK : HAVE YOU EVER HAD ANY DIFFICULTY BREATHING OR HIVES AFTER EATING OR HANDLING ANY FRUITS, OR VEGETABLES; SUCH KIWI, BANANAS, STONE FRUITS, OR CHESTNUTSNO LATEX RISK : DO YOU HAVE A PREVIOUS PERSONAL HISTORY OF MORE THAN NINE SURGERIES, SPINA BIFIDA, OR REPEATED CATHERIZATIONS? NO LATEX RISK : ARE YOU FREQUENTLY EXPOSED TO LATEX PRODUCTS IN YOUR OCCUPATION?NO DATE ASKED : 06/21/2020 ALCOHOL SCREENING DID YOU HAVE A DRINK CONTAINING ALCOHOL IN THE PAST YEAR?NO POINTS0 INTERPRETATIONNEGATIVE RECREATIONAL DRUG USE DRUG USE?NO [id number] L[employer] LANGUAGES SPOKEN:BELARUSIAN EDUCATION LEVEL OF EDUCATION:NOT FINISHED COLLEGE LEARNING BARRIERS / SPECIAL NEEDS BARRIERS TO LEARNING?NO HEARING IMPAIRED?NO VISION IMPAIRED?YES COGNITIVELY IMPAIRED?NO :CORRECTIVE LENSES READINESS TO LEARN?YES LEARNING PREFERENCES?NO LEARNING CAPABILITIES PRESENT?YES EMOTIONAL BARRIERS?NO SPECIAL DEVICES?NO METAL BALER NEEDED?NO DOMESTIC VIOLENCE DO YOU FEEL SAFE IN YOUR ENVIRONMENT?YES OCCUPATION: [employer]. NEW PATIENT PAIN DIARY TODAY'S VISIT 03/01/20, PATIENT DESCRIBES PAIN : ACHING, BURNING, HAVE IT ALL THE TIME, SHARP, STABBING, TENDER, THROBBING, SORE, SHOOTING, OTHER LOCALIZED, NUMBNESS DOWN LEFT LEG-FEELS LIKE PINS AND NEEDLES-OVER THE PAST MONTH. THE PAIN IS CONSTANT BUT THE INTENSITY AND THE DECRIPTIONS WILL VARY, FROM 0-10, WHAT LEVEL IS YOUR PAIN TODAY? 6, PRECIPITATING FACTORS WORSE WITH STANDING OR WALKING, INACTIVITY, ALLEVIATING FACTORS CHANGE OF ACTIVITY. PAIN CLINIC PFS, CLERGY, PUBLIC HEALTH REFERRALS PFS REFERRAL NEEDED?NO CLERGY REFERRAL NEEDED?NO PUBLIC HEALTH REFERRAL NEEDED?NO HAS THE PATIENT BEEN EDUCATED REGARDING HIS/HER PLAN OF CARE?YES HAS THE PATIENT BEEN EDUCATED REGARDING PAIN, THE RISK FOR PAIN, THE IMPORTANCE OF EFFECTIVE PAIN MANAGEMENT, AND THE PAIN ASSESSMENT PROCESS?YES ADVANCE DIRECTIVE ADVANCE DIRECTIVE DISCUSSED WITH PATIENT:YES PT HAS NO ADVANCED DIRECTIVES, AND HE DECLINES INFORMATION ON HCP AT THIS TIME. HOSPITALIZATION/MAJOR DIAGNOSTIC PROCEDURE SURGERY REVIEW OF SYSTEMS CONSTITUTIONAL: ANY RECENT FEVER NO . CHILLS NO . WEIGHT CHANGE OF UNKNOWN REASONS NO . GASTROENTEROLOGY: NEW UNEXPLAINABLE CHANGES IN BOWEL CONTROL NO . CONSTIPATION NO . GENITOURINARY: ANY NEW CHANGE IN BLADDER CONTROL? NO . NEUROLOGY: NEW ONSET DIZZINESS OR NEUROLOGICAL CHANGES NOT MENTIONED NO . NEW NUMBNESS OR PAIN PATTERNS NOT MENTIONED AND PERTINENT TO TODAY'S VISIT NO . CARDIOLOGY: NEW CHEST PRESSURE NO . NEW CHEST PAIN NO . RESPIRATORY: UNEXPLAINABLE COUGH NO . NEW SHORTNESS OF BREATH NO . VITAL SIGNS WT 161.2 LBS, HT 72 IN, BMI 21.86 INDEX, BP 144/72 MM HG, HR 67 /MIN, RR 18 /MIN, TEMP 97.7 F, OXYGEN SAT % 99%, NA INITIALS AW 0957, REVIEWED BY: LILA REVELES [facility]. EXAMINATION GENERAL EXAMINATION: GENERALNO ACUTE DISTRESS, WELL NOURISHED AND HYDRATED. PSYCHAPPROPRIATE MOOD AND AFFECT . LUNGS:CLEAR TO AUSCULTATION BILATERALLY, NO WHEEZES, RHONCHI, RALES. HEART:NO MURMURS, REGULAR RATE AND RHYTHM. ASSESSMENTS SPONDYLOSIS WITHOUT MYELOPATHY OR RADICULOPATHY, LUMBOSACRAL REGION - M47.817 (PRIMARY) TREATMENT SPONDYLOSIS WITHOUT MYELOPATHY OR RADICULOPATHY, LUMBOSACRAL REGION PAIN PROCEDURE DEVORAH DOSHI 06/21/2020 10:18:50 AM > PRE-PROCEDURE 810 POST PROCEDURE 0-11/17 CONTINUES TO HELP TODAY CLINICAL NOTES: 60-YEAR-OLD MALE IN FOR POST FACET BLOCK FOLLOW-UP. GIVEN PRESENTING SYMPTOMS RECOMMEND FOLLOW-UP IN 2 MONTHS. PATIENT HAS EXPRESSED UNDERSTANDING OF AND WAS IN AGREEMENT WITH TREATMENT PLAN. GIVEN TIME TO ASK QUESTIONS AND EXPRESS CONCERNS. PREVENTIVE MEDICINE PAIN CLINIC TEACHING: THE PATIENT HAS BEEN EDUCATED REGARDING PAIN, THE RISK FOR PAIN, THE IMPORTANCE OF EFFECTIVE PAIN MANAGEMENT, AND THE PAIN ASSESSMENT PROCESS. : DISCUSSED CARE PLAN WITH PATIENT, PATIENT VERBALIZES UNDERSTANDING. PROCEDURE CODES FA211 ESTABILISHED PATIENT [facility] FACILITY CHARGE DISPOSITION & COMMUNICATION FOLLOW UP 2 MONTHS (REASON: BACK PAIN) ELECTRONICALLY SIGNED BY NATHANAEL GRIFFIN ON 06/22/2020 AT 12:52 PM EDT DISCLAIMER : THIS IS A VISIT SUMMARY EXTRACTED FROM THE [employer] CHART. IT IS NOT A COPY OF THE [employer] PROGRESS NOTE. TIMUR
== END ==
LOC: M PAIN 09:30
PROVIDERS: ATTEND Family Medicine
DX: M47.817 Spondylosis without myelopathy or radiculopathy, lumbosacral region (principal); I10 Essential (primary) hypertension; M79.18 Myalgia, other site; F17.210 Nicotine dependence, cigarettes, uncomplicated; Z79.891 Long term (current) use of opiate analgesic; Z79.899 Other long term (current) drug therapy; Z88.6 Allergy status to analgesic agent

== ENCOUNTER → 2020-08-23 | Outpatient (CLI) | payer OTHER ==
--- NOTE | 2020-08-24 23:14 | ECWPNPC ---
PATIENT NAME: DEVNI POLLARD : 1960 GENDER: MALE VISIT DATE: 08/23/2020 DISCHARGE DATE: 08/23/20 1027 VISIT LOCKED DATE TIME: PHYSICIAN: DEVORAH SMITH RESOURCE: DEVORAH SMITH REASON FOR APPOINTMENT 1. LOW BACK PAIN HISTORY OF PRESENT ILLNESS GENERAL: - 60-YEAR-OLD MALE IN FOR CHRONIC PAIN FOLLOW-UP. HE RATES HIS PAIN CURRENTLY AT A 5 OUT OF 10 AND DESCRIBES IT ACHING, BURNING, CONTINUOUS, SHARP, STABBING, TENDER, THROBBING, SORE, AND SHOOTING. PATIENT HAS HAD BILATERAL THERAPEUTIC LUMBAR FACET BLOCKS IN THE PAST WITH GOOD RESULTS AND WE WILL DISCUSS REPEAT PROCEDURES TODAY. FALL RISK SCREENING: SCREENING :TWO OR MORE FALLS WITH INJURY IN THE PAST YEAR PAIN SCREENING: PATIENT HAS A COMPLAINT OF ACUTE OR CHRONIC PAIN :YES LOCATION OF PAIN:LOW BACK, LEFT HIP, THIGH(S) LEFT THIGH INTENSITY OF PAIN (SCALE OF 1 TO 10):5 WHAT DOES YOUR PAIN FEEL LIKE:ACHING, BURNING, CONTINOUS, SHARP, STABBING, TENDER, THROBBING, SORE, SHOOTING DURATION:CONTINOUS, CONSTANT PAIN IS INCREASED BY:ACTIVITIES, PROLONGED STANDING PAIN IS DECREASED BY:USE OF PAIN MEDICATIONS, OTHERS HEAT, REST PERIODS NURSING NOTE: -. PAIN CENTER INTAKE QUESTIONS: DO YOU HAVE A HISTORY OF MRSA? :NO DO YOU TAKE A BLOOD THINNERS? :NO DO YOU HAVE ANY BLEEDING DISORDERS? :NO ANY NEW NUMBNESS OR WEAKNESS IN YOUR LEGS OR ARMS? :NO ANY PACEMAKER,DEFIBRILLATOR, OR DORSAL COLUMN STIMULATOR? :NO DO YOU HAVE ANY RASHES OR OPEN SORES? :NO ARE YOU ALLERGIC TO IV DYE? :NO ARE YOU DIABETIC? :NO ANY NEW PROBLEMS WITH YOUR MEDICATIONS? :NO HAVE YOU RECEIVED A VACCINE IN THE PAST 30 DAYS? :NO DO YOU PLAN TO RECEIVE A VACCINE IN THE NEXT 21 DAYS? :NO DO YOU NEED ANY PRESCRIPTION? :NO DO YOU TAKE ANY IMMUNOSUPPRESSIVE MEDICATIONS? :NO IS THERE A CHANCE YOU COULD BE ? :NO ARE YOU BREAST FEEDING? :NO CURRENT MEDICATIONS TAKING AZELASTINE HCL 0.1 % SOLUTION 2 PUFFS IN EACH NOSTRIL NASALLY TWICE A DAY TAKING LISINOPRIL 40 MG TABLET 1 TABLET ORALLY ONCE A DAY TAKING FERROUS SULFATE 325 MG CAPSULE 1 CAP ORALLY DAILY TAKING MULTIVITAMIN - TABLET CHEWABLE 1 CAP ORALLY DAILY TAKING VITAMIN B COMPLEX - TABLET 1 TAB ORALLY DAILY TAKING VITAMIN D3 1000 UNIT CAPSULE 2 CAPSULE ORALLY ONCE A DAY TAKING TYLENOL EXTRA STRENGTH 500 MG TABLET 2 TABLET NEEDED ORALLY EVERY 6 HRS TAKING LIDOCAINE 5 % PATCH 1 PATCH TO SKIN REMOVE AFTER 12 HOURS EXTERNALLY ONCE A DAY TAKING GABAPENTIN 400 MG CAPSULE 1 CAPSULE ORALLY THREE TIMES DAILY TAKING METHOCARBAMOL 500 MG TABLET 1 TABLET ORALLY THREE TIMES DAILY, 2 TABS @ HS TAKING NORCO 10-325 MG TABLET 1/2 TO 1 TABLET NEEDED ORALLY BID TAKING MORPHINE SULFATE 60MG TABLET ER ORALLY BID TAKING AMLODIPINE BESYLATE 10 MG TABLET 1 TABLET ORALLY ONCE A DAY UNKNOWN NUCYNTA ER 200 MG TABLET EXTENDED RELEASE 12 HOUR 1 TABLET ORALLY EVERY 12 HRS UNKNOWN MAGNESIUM OXIDE 400 MG TABLET 1 TABLET NEEDED ORALLY ONCE A DAY UNKNOWN NUCYNTA 75 MG TABLET 1 TABLET ORALLY THREE TIMES DAILY NEEDED UNKNOWN HYDROCODONE-ACETAMINOPHEN 5-300 MG TABLET DIRECTED ORALLY MDD=4 UNKNOWN MAY USE CBD OIL MEDICATION LIST REVIEWED AND RECONCILED WITH THE PATIENT PAST MEDICAL HISTORY HTN LBP MYALGIA ALLERGIES NSAIDS: ANAPHYLAXIS - ALLERGY SURGICAL HISTORY APPENDECTOMY 1973 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 3 SON(S) , 1 DAUGHTER(S) - HEALTHY. SOCIAL HISTORY GENERAL: TOBACCO USE ARE YOU A:CURRENT SMOKER ARE YOU INTERESTED IN QUITTING?NOT READY TO QUIT COUNSELED THE PATIENT ON SMOKING EFFECTS, EDUCATION [id number]/06/2020 HOW MANY CIGARETTES A DAY DO YOU SMOKE?5 OR LESS PATIENT COUNSELED ON THE DANGERS OF TOBACCO USE AND URGED TO QUIT:06/21/2020 SMOKING CESSATION INFORMATION GIVEN03/15/2020 LATEX QUESTIONNAIRE LATEX ALLERGY : HAVE YOU EVER DEVELOPED ANY TYPE OF REACTION AFTER HANDLING LATEX PRODUCTS SUCH RUBBER GLOVES, CONDOMS, DIAPHRAGMS, BALLOONS, SOCKS, OR UNDERWEAR?NO LATEX ALLERGY : HAVE YOU EVER DEVELOPED ANY TYPE OF REACTION DURING OR AFTER DENTAL APPOINTMENT, VAGINAL/RECTAL EXAMINATION, SURGICAL PROCEDURE, OR ANY OTHER EXPOSURE?NO LATEX RISK : HAVE YOU EVER HAD ANY DIFFICULTY BREATHING OR HIVES AFTER EATING OR HANDLING ANY FRUITS, OR VEGETABLES; SUCH KIWI, BANANAS, STONE FRUITS, OR CHESTNUTSNO LATEX RISK : DO YOU HAVE A PREVIOUS PERSONAL HISTORY OF MORE THAN NINE SURGERIES, SPINA BIFIDA, OR REPEATED CATHERIZATIONS? NO LATEX RISK : ARE YOU FREQUENTLY EXPOSED TO LATEX PRODUCTS IN YOUR OCCUPATION?NO DATE ASKED : 08/23/2020 ALCOHOL SCREENING DID YOU HAVE A DRINK CONTAINING ALCOHOL IN THE PAST YEAR?NO POINTS0 INTERPRETATIONNEGATIVE RECREATIONAL DRUG USE DRUG USE?NO CONFUCIANIST [id number] [employer] LANGUAGE LANGUAGES SPOKEN:ERITREAN EDUCATION LEVEL OF EDUCATION:NOT FINISHED COLLEGE LEARNING BARRIERS / SPECIAL NEEDS BARRIERS TO LEARNING?NO HEARING IMPAIRED?NO VISION IMPAIRED?YES :CORRECTIVE LENSES COGNITIVELY IMPAIRED?NO READINESS TO LEARN?YES LEARNING PREFERENCES?NO LEARNING CAPABILITIES PRESENT?YES EMOTIONAL BARRIERS?NO SPECIAL DEVICES?NO WAX ROOM SUPERVISOR NEEDED?NO DOMESTIC VIOLENCE DO YOU FEEL SAFE IN YOUR ENVIRONMENT?YES OCCUPATION: [employer] FOR THE [employer] OFFICE. TODAY'S VISIT 03/01/20, PATIENT DESCRIBES PAIN : ACHING, BURNING, HAVE IT ALL THE TIME, SHARP, STABBING, TENDER, THROBBING, SORE, SHOOTING, OTHER LOCALIZED, NUMBNESS DOWN LEFT LEG-FEELS LIKE PINS AND NEEDLES-OVER THE PAST MONTH. THE PAIN IS CONSTANT BUT THE INTENSITY AND THE DECRIPTIONS WILL VARY, FROM 0-10, WHAT LEVEL IS YOUR PAIN TODAY? 6, PRECIPITATING FACTORS WORSE WITH STANDING OR WALKING, INACTIVITY, ALLEVIATING FACTORS CHANGE OF ACTIVITY. PAIN CLINIC PFS, CLERGY, PUBLIC HEALTH REFERRALS PFS REFERRAL NEEDED?NO CLERGY REFERRAL NEEDED?NO PUBLIC HEALTH REFERRAL NEEDED?NO HAS THE PATIENT BEEN EDUCATED REGARDING HIS/HER PLAN OF CARE?YES HAS THE PATIENT BEEN EDUCATED REGARDING PAIN, THE RISK FOR PAIN, THE IMPORTANCE OF EFFECTIVE PAIN MANAGEMENT, AND THE PAIN ASSESSMENT PROCESS?YES ADVANCE DIRECTIVE ADVANCE DIRECTIVE DISCUSSED WITH PATIENT:YES PT HAS NO ADVANCED DIRECTIVES, AND HE DECLINES INFORMATION ON HCP AT THIS TIME. HOSPITALIZATION/MAJOR DIAGNOSTIC PROCEDURE SURGERY REVIEW OF SYSTEMS CONSTITUTIONAL: ANY RECENT FEVER NO . CHILLS NO . WEIGHT CHANGE OF UNKNOWN REASONS NO . GASTROENTEROLOGY: NEW UNEXPLAINABLE CHANGES IN BOWEL CONTROL NO . CONSTIPATION NO . GENITOURINARY: ANY NEW CHANGE IN BLADDER CONTROL? NO . NEUROLOGY: NEW ONSET DIZZINESS OR NEUROLOGICAL CHANGES NOT MENTIONED NO . NEW NUMBNESS OR PAIN PATTERNS NOT MENTIONED AND PERTINENT TO TODAY'S VISIT NO . CARDIOLOGY: NEW CHEST PRESSURE NO . NEW CHEST PAIN NO . RESPIRATORY: UNEXPLAINABLE COUGH NO . NEW SHORTNESS OF BREATH NO . VITAL SIGNS WT 160.8 LBS, HT 72 IN, BMI 21.81 INDEX, BP 138/74 MM HG, HR 69 /MIN, RR 18 /MIN, TEMP 97.0 F, OXYGEN SAT % 99%, SAFE IN ENV? (Y/N) YES, NA INITIALS AW 0939, REVIEWED BY: JEREMI RN. EXAMINATION GENERAL EXAMINATION: GENERALNO ACUTE DISTRESS, WELL NOURISHED AND HYDRATED. PSYCHAPPROPRIATE MOOD AND AFFECT . LUNGS:CLEAR TO AUSCULTATION BILATERALLY, NO WHEEZES, RHONCHI, RALES. HEART:NO MURMURS, REGULAR RATE AND RHYTHM. BACK:DENIES POINT TENDERNESS ALONG LUMBAR SPINE, SURROUNDING SKIN SHOWS NO ERYTHEMA, ECCHYMOSIS, INCREASED WARMTH, AND/OR SKIN ERUPTIONS NOTED. PATIENT DOES ENDORSE INCREASED PAIN WITH FACET LOADING . ASSESSMENTS SPONDYLOSIS WITHOUT MYELOPATHY OR RADICULOPATHY, LUMBOSACRAL REGION - M47.817 (PRIMARY) TREATMENT SPONDYLOSIS WITHOUT MYELOPATHY OR RADICULOPATHY, LUMBOSACRAL REGION NOTES: 60-YEAR-OLD MALE IN FOR CHRONIC PAIN FOLLOW-UP. GIVEN PRESENTING SYMPTOMS AND RESULTS OF PHYSICAL EXAMINATION RECOMMENDED BILATERAL THERAPEUTIC LUMBAR FACET BLOCK L4-L5 L5-S1 WITH POSTPROCEDURAL FOLLOW-UP. PATIENT HAS EXPRESSED UNDERSTANDING OF AND WAS IN AGREEMENT WITH TREATMENT PLAN. GIVEN TIME TO ASK QUESTIONS AND EXPRESS CONCERNS. PREPROCEDURE INSTRUCTIONS FOR LUMBAR FACET BLOCK THERAPEUTIC REVIEWED WITH PATIENT AND HE VERBALIZES UNDERSTANDING OF INSTRUCTIONS. PROCEDURE CODES FA211 ESTABILISHED PATIENT [facility] CHARGE DISPOSITION & COMMUNICATION FOLLOW UP POSTPROCEDURE (REASON: BILATERAL THERAPEUTIC LUMBAR FACET BLOCK) ELECTRONICALLY SIGNED BY NATHANAEL GRIFFIN ON 08/24/2020 AT 08:39 AM EST DISCLAIMER : THIS IS A VISIT SUMMARY EXTRACTED FROM THE [employer] CHART. IT IS NOT A COPY OF THE [employer] PROGRESS NOTE. TIMUR
== END ==
LOC: M PAIN 09:15
PROVIDERS: ATTEND Family Medicine
DX: M47.817 Spondylosis without myelopathy or radiculopathy, lumbosacral region (principal); G89.29 Other chronic pain; M79.10 Myalgia, unspecified site; F17.210 Nicotine dependence, cigarettes, uncomplicated; Z88.6 Allergy status to analgesic agent; Z79.891 Long term (current) use of opiate analgesic; Z79.899 Other long term (current) drug therapy

== ENCOUNTER → 2020-09-23 | Outpatient (CLI) | payer OTHER | LOC: M LABSMTC 11:58 | PROVIDERS: ATTEND Anesthesiology | DX: Z20.822 Contact with and (suspected) exposure to COVID-19 (principal) ==

== ENCOUNTER → 2020-09-28 | Outpatient (CLI) | payer OTHER ==
[~2020-09-28] MED LIST changes: -diazePAM 5 MG TAB As Ordered ONE; +diazePAM 5MG TABLET As Ordered ONE
--- NOTE | 2020-09-28 13:18 | REP ---
INDICATION: BILATERAL LUMBAR THERAPEUTIC FACET BLOCK. COMPARISON: None. TECHNIQUE: Four views. 1 minutes 14 seconds of fluoroscopy time is reported. FINDINGS: A sequence of 4 last image hold fluoroscopically obtained spot radiograph(s) of the lumbar spine document(s) needle position(s) and contrast injection associated with injection procedure. IMPRESSION: Procedural imaging. <Electronically signed by Maxi Nvoa > 09/28/20 [id number]
--- NOTE | 2020-09-30 02:33 | ECWPNPC ---
PATIENT NAME: DEVIN POLLARD : 1960 GENDER: MALE VISIT DATE: 09/28/2020 DISCHARGE DATE: 09/28/20 1303 VISIT LOCKED DATE TIME: PHYSICIAN: CINDY ESCOBAR MD RESOURCE: CINDY ESCOBAR MD REASON FOR APPOINTMENT 1. BILATERAL THERAPEUTIC LUMBAR FACET BLOCK L4-L5, L5-S1 HISTORY OF PRESENT ILLNESS GENERAL: -. FALL RISK SCREENING: SCREENING :ONE FALL WITH INJURY IN THE PAST YEAR PAIN SCREENING: PATIENT HAS A COMPLAINT OF ACUTE OR CHRONIC PAIN :YES LOCATION OF PAIN:LOW BACK, THIGH(S) LEFT MID THIGH INTENSITY OF PAIN (SCALE OF 1 TO 10):5 WHAT DOES YOUR PAIN FEEL LIKE:ACHING, BURNING, CONTINOUS, INTERMITTENT, SHARP, STABBING, TENDER, THROBBING, SORE, SHOOTING CHRONIC DULL ACHE. NOTES OTHER DESCRIPTIONS INTERMITTENTLY/VARIABLE DURATION:CONTINOUS, CONSTANT PAIN IS INCREASED BY:ACTIVITIES, PROLONGED STANDING, OTHERS PROLONGED SITTING/ACTIVITY PAIN IS DECREASED BY:USE OF PAIN MEDICATIONS, OTHERS HEAT, STRETCHES, EXERCISES NURSING NOTE: -. PAIN CENTER INTAKE QUESTIONS: DO YOU HAVE A HISTORY OF MRSA? :NO DO YOU TAKE A BLOOD THINNERS? :NO DO YOU HAVE ANY BLEEDING DISORDERS? :NO ANY NEW NUMBNESS OR WEAKNESS IN YOUR LEGS OR ARMS? :NO ANY PACEMAKER,DEFIBRILLATOR, OR DORSAL COLUMN STIMULATOR? :NO DO YOU HAVE ANY RASHES OR OPEN SORES? :NO ARE YOU ALLERGIC TO IV DYE? :NO ARE YOU DIABETIC? :NO ANY NEW PROBLEMS WITH YOUR MEDICATIONS? :NO HAVE YOU RECEIVED A VACCINE IN THE PAST 30 DAYS? :NO DO YOU PLAN TO RECEIVE A VACCINE IN THE NEXT 21 DAYS? :NO DO YOU TAKE ANY IMMUNOSUPPRESSIVE MEDICATIONS? :NO ANY HISTORY OF SEIZURES? :NO ANY HISTORY OF CARDIAC ISSUES OR EVENTS? :NO DO YOU HAVE SLEEP APNEA? :NO ANY RECENT HEAD INJURY? :NO DO YOU HAVE ANY NEW INFECTIONS? :NO IS THERE A CHANCE YOU COULD BE ? :NO ARE YOU BREAST FEEDING? :NO WHEN DID YOU LAST EAT? : -LAST 1949 WHEN DID YOU LAST DRINK? : -09-30-2020 0514 WHAT DID YOU LAST DRINK? : -SIPS WITH MEDICATIONS NAME OF PERSON DRIVING YOU HOME? : - HOOD DO YOU HAVE ANY OTHER QUESTIONS OR CONCERNS? : -PATIENT DENIES CURRENT MEDICATIONS TAKING AZELASTINE HCL 0.1 % SOLUTION 2 PUFFS IN EACH NOSTRIL NASALLY TWICE A DAY TAKING LISINOPRIL 40 MG TABLET 1 TABLET ORALLY ONCE A DAY TAKING FERROUS SULFATE 325 MG CAPSULE 1 CAP ORALLY DAILY TAKING MULTIVITAMIN - TABLET CHEWABLE 1 CAP ORALLY DAILY TAKING VITAMIN B COMPLEX - TABLET 1 TAB ORALLY DAILY TAKING VITAMIN D3 1000 UNIT CAPSULE 2 CAPSULE ORALLY 2000IU 2 TABS DAILY TAKING TYLENOL EXTRA STRENGTH 500 MG TABLET 2 TABLET NEEDED ORALLY EVERY 6 HRS, NOTES: LAST DOSE 54409-28-2020 TAKING LIDOCAINE 5 % PATCH 1 PATCH TO SKIN REMOVE AFTER 12 HOURS EXTERNALLY ONCE A DAY, NOTES: LAST DOSE 09-21-2020 TAKING GABAPENTIN 400 MG CAPSULE 1 CAPSULE ORALLY THREE TIMES DAILY, NOTES: LAST DOSE 54409-28-2020 TAKING METHOCARBAMOL 500 MG TABLET 1 TABLET ORALLY THREE TIMES DAILY, 2 TABS @ HS TAKING NORCO 10-325 MG TABLET 1/2 TO 1 TABLET NEEDED ORALLY BID, NOTES: LAST DOSE 54409-28-2020 TAKING MORPHINE SULFATE 60MG TABLET ER ORALLY BID, NOTES: LAST DOSE 54409-28-2020 TAKING AMLODIPINE BESYLATE 10 MG TABLET 1 TABLET ORALLY ONCE A DAY, NOTES: LAST DOSE 54409-28-2020 NOT-TAKING NUCYNTA ER 200 MG TABLET EXTENDED RELEASE 12 HOUR 1 TABLET ORALLY EVERY 12 HRS NOT-TAKING MAGNESIUM OXIDE 400 MG TABLET 1 TABLET NEEDED ORALLY ONCE A DAY NOT-TAKING NUCYNTA 75 MG TABLET 1 TABLET ORALLY THREE TIMES DAILY NEEDED NOT-TAKING HYDROCODONE-ACETAMINOPHEN 5-300 MG TABLET DIRECTED ORALLY MDD=4 NOT-TAKING MAY USE CBD OIL MEDICATION LIST REVIEWED AND RECONCILED WITH THE PATIENT PAST MEDICAL HISTORY HTN LBP MYALGIA ALLERGIES NSAIDS: ANAPHYLAXIS - ALLERGY SURGICAL HISTORY APPENDECTOMY 1974 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 3 SON(S) , 1 DAUGHTER(S) - HEALTHY. SOCIAL HISTORY GENERAL: TOBACCO USE ARE YOU A:CURRENT SMOKER ARE YOU INTERESTED IN QUITTING?NOT READY TO QUIT COUNSELED THE PATIENT ON SMOKING EFFECTS, EDUCATION [id number]/06/2020 HOW MANY CIGARETTES A DAY DO YOU SMOKE?5 OR LESS PATIENT COUNSELED ON THE DANGERS OF TOBACCO USE AND URGED TO QUIT:06/21/2020 SMOKING CESSATION INFORMATION GIVEN03/15/2020 LATEX QUESTIONNAIRE LATEX ALLERGY : HAVE YOU EVER DEVELOPED ANY TYPE OF REACTION AFTER HANDLING LATEX PRODUCTS SUCH RUBBER GLOVES, CONDOMS, DIAPHRAGMS, BALLOONS, SOCKS, OR UNDERWEAR?NO LATEX ALLERGY : HAVE YOU EVER DEVELOPED ANY TYPE OF REACTION DURING OR AFTER DENTAL APPOINTMENT, VAGINAL/RECTAL EXAMINATION, SURGICAL PROCEDURE, OR ANY OTHER EXPOSURE?NO LATEX RISK : HAVE YOU EVER HAD ANY DIFFICULTY BREATHING OR HIVES AFTER EATING OR HANDLING ANY FRUITS, OR VEGETABLES; SUCH KIWI, BANANAS, STONE FRUITS, OR CHESTNUTSNO LATEX RISK : DO YOU HAVE A PREVIOUS PERSONAL HISTORY OF MORE THAN NINE SURGERIES, SPINA BIFIDA, OR REPEATED CATHERIZATIONS? NO LATEX RISK : ARE YOU FREQUENTLY EXPOSED TO LATEX PRODUCTS IN YOUR OCCUPATION?NO DATE ASKED : 09/27/2020 ALCOHOL SCREENING DID YOU HAVE A DRINK CONTAINING ALCOHOL IN THE PAST YEAR?NO POINTS0 INTERPRETATIONNEGATIVE RECREATIONAL DRUG USE DRUG USE?NO [employer]ITAN [id number] LANGUAGE LANGUAGES SPOKEN:MAORI EDUCATION LEVEL OF EDUCATION:NOT FINISHED COLLEGE LEARNING BARRIERS / SPECIAL NEEDS BARRIERS TO LEARNING?NO HEARING IMPAIRED?NO VISION IMPAIRED?YES :CORRECTIVE LENSES COGNITIVELY IMPAIRED?NO READINESS TO LEARN?YES LEARNING PREFERENCES?NO LEARNING CAPABILITIES PRESENT?YES EMOTIONAL BARRIERS?NO SPECIAL DEVICES?YES :CANE MUD ANALYSIS WELL LOGGING OPERATOR NEEDED?NO DOMESTIC VIOLENCE DO YOU FEEL SAFE IN YOUR ENVIRONMENT?YES 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 TODAY'S VISIT 03/01/20, PATIENT DESCRIBES PAIN : ACHING, BURNING, HAVE IT ALL THE TIME, SHARP, STABBING, TENDER, THROBBING, SORE, SHOOTING, OTHER LOCALIZED, NUMBNESS DOWN LEFT LEG-FEELS LIKE PINS AND NEEDLES-OVER THE PAST MONTH. THE PAIN IS CONSTANT BUT THE INTENSITY AND THE DECRIPTIONS WILL VARY, FROM 0-10, WHAT LEVEL IS YOUR PAIN TODAY? 6, PRECIPITATING FACTORS WORSE WITH STANDING OR WALKING, INACTIVITY, ALLEVIATING FACTORS CHANGE OF ACTIVITY. - PFS REFERRAL NEEDED?NO CLERGY REFERRAL NEEDED?NO PUBLIC HEALTH REFERRAL NEEDED?NO HAS THE PATIENT BEEN EDUCATED REGARDING HIS/HER PLAN OF CARE?YES HAS THE PATIENT BEEN EDUCATED REGARDING PAIN, THE RISK FOR PAIN, THE IMPORTANCE OF EFFECTIVE PAIN MANAGEMENT, AND THE PAIN ASSESSMENT PROCESS?YES ADVANCE DIRECTIVE ADVANCE DIRECTIVE DISCUSSED WITH PATIENT:YES PT HAS NO ADVANCED DIRECTIVES, AND HE DECLINES INFORMATION ON HCP AT THIS TIME. HOSPITALIZATION/MAJOR DIAGNOSTIC PROCEDURE SURGERY VITAL SIGNS WT 158.6 LBS, HT 72 IN, BMI 21.51 INDEX, BP 152/75 MM HG, HR 56 /MIN, RR 18 /MIN, TEMP 98.5 F, OXYGEN SAT % 97%, SAFE IN ENV? (Y/N) YES, NA INITIALS SC 09:53, REVIEWED BY: DANIEL. EXAMINATION GENERAL EXAMINATION: THE PATIENT IS ALERT, ORIENTED TIMES THREE AND COOPERATIVE. LUNGS ARE CLEAR TO AUSCULTATION. HEART SHOWS REGULAR RHYTHM, NO MURMURS AND NO GALLOPS. ASSESSMENTS SPONDYLOSIS WITHOUT MYELOPATHY OR RADICULOPATHY, LUMBAR REGION - M47.816 (PRIMARY) SPONDYLOSIS WITHOUT MYELOPATHY OR RADICULOPATHY, LUMBOSACRAL REGION - M47.817 TREATMENT SPONDYLOSIS WITHOUT MYELOPATHY OR RADICULOPATHY, LUMBAR REGION [facility] FACET BLOCK (PAIN)[id number] MEDICATION: VALIUM TAB 10MG ORALLY (DIAZEPAM)ANGELIA PRIETO 09/28/2020 11:36:12 AM > VERIFIED LOT # [id number] EXP 04/30 YOLANDA RITCHIE 09/28/2020 11:38:23 AM > ADMINISTERED MEDICATION: OXYCODONE HCL TAB 10MG ORALLYANGELIA PRIETO 09/28/2020 11:36:48 AM > VERIFIED LOT# [id number] EXP 10/2021 YOLANDA RITCHIE 09/28/2020 11:39:01 AM > ADMINISTERED OTHERS NOTES: PAT COMPLETED 09/27/20 Gigi BANERJEE RN. PROCEDURES PAIN NURSING RECORD PROCEDURE IN ROOM 1201, PHYSICIAN IN ROOM 1218, START 1228, FINISH 1235, PHYSICIAN OUT OF ROOM 1236, OUT OF ROOM 1242, ECG NORMAL SINUS SINUS SLOANE, PATIENT SHIELDED YES, SAFETY STRAP YES, PREP CHLOROPREP BY ANGELIA COULTER RN, DRESSING TEGADERM BY DR. ESCOBAR LOC: YOLANDA RITCHIE 09/28/2020 12:16:51 PM > , 1. ALERT, ORIENTED, RESP: 1. REGULAR, NO DYSPNEA, YOLANDA RITCHIE 09/28/2020 12:17:25 PM > COLOR: YOLANDA RITCHIE 09/28/2020 12:17:31 PM > , 1. PINK SKIN: 1. WARM, DRY, YOLANDA RITCHIE 09/28/2020 12:17:40 PM > POSITION: 1. PRONE, YOLANDA RITCHIE 09/28/2020 12:17:53 PM > VITALS: YOLANDA RITCHIE 09/28/2020 12:17:59 PM > 57, 128/77, 100% , YOLANDA RITCHIE 09/28/2020 12:30:47 PM > 64, 141/83, 100% , YOLANDA RITCHIE 09/28/2020 12:56:20 PM > 57, 143/81, 99% COMPLETION OF PROCEDURE APPOINTMENT: POST PAIN 4 LOW BACK, DRESSING SITE DRY AND INTACT, IV N/A, GAIT STEADY, TEACHING COMPLETED, PATIENT ACKNOWLEDGES UNDERSTANDING YES PATIENT STATES UNDERSTANDING OF POST PROCEDURE TEACHING, PATIENT DISCHARGED AT 1300 PN LUMBAR FACET BLOCK THERAPEUTIC PRE PROCEDURE DIAGNOSIS LUMBAR SPONDYLOSIS, LUMBOSACRAL SPONDYLOSIS POST PROCEDURE DIAGNOSIS LUMBAR SPONDYLOSIS, LUMBOSACRAL SPONDYLOSIS PROCEDURE BILATERAL L4-L5 AND BILATERAL L5-S1 LUMBAR FACET THERAPEUTIC BLOCK SURGEON DR. CINDY ESCOBAR BARREL STAVE INSPECTOR NONE ANESTHESIA LOCAL PRE PROCEDURE NOTE THE PATIENT HAS A HISTORY OF CHRONIC LOW BACK PAIN. I EVALUATED THE PATIENT AND REVIEWED THE CHART. I WENT OVER THE RISKS, ALTERNATIVES, AND BENEFITS ASSOCIATED WITH THIS PROCEDURE. THE PATIENT WOULD LIKE TO PROCEED AND GIVES CONSENT TO PERFORM THE PROCEDURE. THE PATIENT DENIES UNEXPLAINABLE WEIGHT LOSS, FEVER, CHILLS, OR NEW CHANGES IN URINARY OR BOWEL CONTROL. THE PATIENT IS COVID-19 NEGATIVE. THE PATIENT HAS A LUMBARIZATION OF THE FIRST SACRAL SEGMENT DESCRIPTION OF PROCEDURE THE PATIENT WAS BROUGHT TO THE PROCEDURE ROOM AND PLACED IN THE PRONE POSITION. THE LUMBOSACRAL AREA WAS CLEANED WITH CHLORAPREP SOLUTION AND DRAPED ASEPTICALLY. THE PROCEDURE WAS DONE UNDER STERILE CONDITIONS. A TIMEOUT WAS PERFORMED WHERE LATERALITY AND THE SITE OF THE PROCEDURE WERE CHECKED AND CONFIRMED WITH EVERYONE IN THE ROOM. UNDER FLUOROSCOPIC GUIDANCE, THE TARGET POINT WAS SELECTED AT THE RIGHT AND LEFT L4-L5 AND RIGHT AND LEFT L5-S1 FACET JOINTS. TARGET POINT WAS SELECTED AFTER LATERAL ROTATION AND TILT OF THE MAGNIFIER OF THE C-ARM. I CONFIRMED AGAIN WITH EVERYONE IN THE ROOM THE LATERALITY AND SITE OF THE TARGET AT 1228. LIDOCAINE 0.5% WAS USED TO NUMB THE SKIN AND THE SUBCUTANEOUS TISSUE BELOW IT. SPINAL NEEDLES, 22-GAUGE, WERE ADVANCED UNDER FLUOROSCOPIC GUIDANCE AND FOLLOWING PATIENT FEEDBACK UNTIL THE TARGETS WERE TOUCHED. THE POSITION OF THE NEEDLES WAS VERIFIED WITH AP AND LATERAL VIEWS. AFTER PROPER POSITION OF THE NEEDLES WAS ACHIEVED, ISOVUE-M DYE 30%, 0.1 ML, WAS INJECTED SHOWING ADEQUATE SPREAD OF THE DYE. KENALOG 20 MG WAS INJECTED AT EACH SITE. THEN, A SOLUTION OF 1.0 ML OF BUPIVACAINE 0.125% OF WAS USED TO FLUSH EACH SITE. THE MEDICATION WAS VERIFIED WITH THE NURSE. THERE WAS NO EVIDENCE OF BLOOD, PARESTHESIA OR CEREBROSPINAL FLUID DURING THE PROCEDURE. THE PATIENT WAS SENT TO THE RECOVERY ROOM. THE PATIENT WAS MOVING THE EXTREMITIES AND DOING WELL. THERE WERE NO COMPLICATIONS DURING THE PROCEDURE. ESTIMATED BLOOD LOSS WAS LESS THAN 5 ML. FLUOROSCOPY TIME WAS 1 MINUTE 14 SECONDS POST PROCEDURE NOTE THE PATIENT HAS A LUMARIZATION OF S1, SO CONSIDER REQUESTING A BILATERAL THERAPEUTIC LUMBAR FACET BLOCK L5-S1, S1-S2. THE PATIENT WILL BE SEEN IN A FOLLOW UP IN THE NEXT FEW WEEKS. I AM LOOKING FOR LONG LASTING RELIEF FOR THE PATIENT WITH THIS INTERVENTION. INSTRUCTIONS WERE GIVEN, QUESTIONS WERE ANSWERED, AND THE PATIENT EXPRESSED UNDERSTANDING AND AGREES WITH THE PLAN. I, RAJI SANTANA, DOCUMENTED THE ABOVE INFORMATION ACTING A SCRIBE FOR DR. ESCOBAR. I HAVE REVIEWED THE ABOVE DOCUMENT, WRITTEN BY RAJI SANTANA, REFORMATORY ATTENDANT, AND I VERIFY THAT IT IS ACCURATE PROCEDURE CODES 14981 INJ PARAVERT F JNT L/S 1 LEV, MODIFIERS: 50 [id number] INJ PARAVERT F JNT L/S 2 LEV, MODIFIERS: 50 DISPOSITION & COMMUNICATION FOLLOW UP FOLLOW UP WITH SCANNING COORDINATOR (REASON: POST BILATERAL THERAPEUTIC LUMBAR FACET BLOCK L4-L5, L5-S1) ELECTRONICALLY SIGNED BY CINDY ESCOBAR MD, MD ON 09/29/2020 AT 05:18 PM EST DISCLAIMER : THIS IS A VISIT SUMMARY EXTRACTED FROM THE [employer] CHART. IT IS NOT A COPY OF THE [employer] PROGRESS NOTE. MTDD
== END ==
LOC: M PAIN 09:30
PROVIDERS: ATTEND Anesthesiology
DX: M47.816 Spondylosis without myelopathy or radiculopathy, lumbar region (principal); M47.817 Spondylosis without myelopathy or radiculopathy, lumbosacral region; M79.10 Myalgia, unspecified site; F17.210 Nicotine dependence, cigarettes, uncomplicated; Z88.6 Allergy status to analgesic agent; Z79.891 Long term (current) use of opiate analgesic; Z79.899 Other long term (current) drug therapy
CPT/HCPCS: 64493; 64494; J3301; Q9967

== ENCOUNTER → 2020-10-12 | Outpatient (CLI) | payer OTHER | LOC: M LABSMTC 10:22 | PROVIDERS: ATTEND Pediatrics | DX: Z20.822 Contact with and (suspected) exposure to COVID-19 (principal) | CPT/HCPCS: C9803; U0003 ==

== ENCOUNTER → 2020-11-23 | Outpatient (CLI) | payer OTHER ==
--- NOTE | 2020-11-25 06:26 | ECWPNPC ---
PATIENT NAME: DEVIN POLLARD : 1960 GENDER: MALE VISIT DATE: 11/23/2020 DISCHARGE DATE: 11/23/20 1017 VISIT LOCKED DATE TIME: PHYSICIAN: DEVORAH SMITH RESOURCE: DEVORAH SMITH REASON FOR APPOINTMENT 1. POST BILATERAL THERAPEUTIC LUMBAR FACET BLOCK HISTORY OF PRESENT ILLNESS PAIN CENTER INTAKE QUESTIONS: 60-YEAR-OLD MALE IN FOR POST BILATERAL THERAPEUTIC LUMBAR FACET BLOCK FOLLOW-UP. PATIENT FEELS THE PROCEDURE WAS SUCCESSFUL OVERALL RATING HIS PAIN PREPROCEDURE AT A 8-9 OUT OF 10 AND POSTPROCEDURE AT A 2-3 OUT OF 10. HE FURTHER STATES THE PROCEDURE CONTINUES TO HELP HIM TODAY. GENERAL: -. FALL RISK SCREENING: SCREENING : NO FALLS REPORTED IN THE LAST YEAR. PAIN SCREENING: PATIENT HAS A COMPLAINT OF ACUTE OR CHRONIC PAIN :YES LOCATION OF PAIN:LOW BACK INTENSITY OF PAIN (SCALE OF 1 TO 10):2 WHAT DOES YOUR PAIN FEEL LIKE:ACHING, BURNING, INTERMITTENT, SHARP, STABBING, TENDER, SORE, SHOOTING DURATION:INTERMITTENT, AWAKENS FROM SLEEP PAIN IS INCREASED BY:ACTIVITIES, PROLONGED STANDING VARIES PAIN IS DECREASED BY:USE OF PAIN MEDICATIONS, OTHERS LUMBAR FACET BLOCK HAS HELPED TREMENDOUSLY. NURSING NOTE: -. CURRENT MEDICATIONS TAKING AZELASTINE HCL 0.1 % SOLUTION 2 PUFFS IN EACH NOSTRIL NASALLY TWICE A DAY TAKING LISINOPRIL 40 MG TABLET 1 TABLET ORALLY ONCE A DAY TAKING FERROUS SULFATE 325 MG CAPSULE 1 CAP ORALLY DAILY TAKING MULTIVITAMIN - TABLET CHEWABLE 1 CAP ORALLY DAILY TAKING VITAMIN B COMPLEX - TABLET 1 TAB ORALLY DAILY TAKING VITAMIN D3 1000 UNIT CAPSULE 2 CAPSULE ORALLY 2000IU 2 TABS DAILY TAKING TYLENOL EXTRA STRENGTH 500 MG TABLET 2 TABLET NEEDED ORALLY EVERY 6 HRS TAKING LIDOCAINE 5 % PATCH 1 PATCH TO SKIN REMOVE AFTER 12 HOURS EXTERNALLY ONCE A DAY TAKING GABAPENTIN 400 MG CAPSULE 1 CAPSULE ORALLY THREE TIMES DAILY TAKING METHOCARBAMOL 500 MG TABLET 1 TABLET ORALLY THREE TIMES DAILY, 2 TABS @ HS TAKING NORCO 10-325 MG TABLET 1/2 TO 1 TABLET NEEDED ORALLY BID TAKING MORPHINE SULFATE 60MG TABLET ER ORALLY BID TAKING AMLODIPINE BESYLATE 10 MG TABLET 1 TABLET ORALLY ONCE A DAY NOT-TAKING NUCYNTA ER 200 MG TABLET EXTENDED RELEASE 12 HOUR 1 TABLET ORALLY EVERY 12 HRS NOT-TAKING MAGNESIUM OXIDE 400 MG TABLET 1 TABLET NEEDED ORALLY ONCE A DAY NOT-TAKING NUCYNTA 75 MG TABLET 1 TABLET ORALLY THREE TIMES DAILY NEEDED NOT-TAKING HYDROCODONE-ACETAMINOPHEN 5-300 MG TABLET DIRECTED ORALLY MDD=4 NOT-TAKING MAY USE CBD OIL MEDICATION LIST REVIEWED AND RECONCILED WITH THE PATIENT PAST MEDICAL HISTORY HTN LBP MYALGIA ALLERGIES NSAIDS: ANAPHYLAXIS - ALLERGY SOCIAL HISTORY GENERAL: TOBACCO USE ARE YOU A:CURRENT SMOKER HOW MANY CIGARETTES A DAY DO YOU SMOKE?5 OR LESS ARE YOU INTERESTED IN QUITTING?NOT READY TO QUIT PATIENT COUNSELED ON THE DANGERS OF TOBACCO USE AND URGED TO QUIT:06/21/2020 COUNSELED THE PATIENT ON SMOKING EFFECTS, EDUCATION [id number]/06/2020 SMOKING CESSATION INFORMATION GIVEN03/15/2020 LATEX QUESTIONNAIRE LATEX ALLERGY : HAVE YOU EVER DEVELOPED ANY TYPE OF REACTION AFTER HANDLING LATEX PRODUCTS SUCH RUBBER GLOVES, CONDOMS, DIAPHRAGMS, BALLOONS, SOCKS, OR UNDERWEAR?NO LATEX ALLERGY : HAVE YOU EVER DEVELOPED ANY TYPE OF REACTION DURING OR AFTER DENTAL APPOINTMENT, VAGINAL/RECTAL EXAMINATION, SURGICAL PROCEDURE, OR ANY OTHER EXPOSURE?NO LATEX RISK : HAVE YOU EVER HAD ANY DIFFICULTY BREATHING OR HIVES AFTER EATING OR HANDLING ANY FRUITS, OR VEGETABLES; SUCH KIWI, BANANAS, STONE FRUITS, OR CHESTNUTSNO LATEX RISK : DO YOU HAVE A PREVIOUS PERSONAL HISTORY OF MORE THAN NINE SURGERIES, SPINA BIFIDA, OR REPEATED CATHERIZATIONS? NO LATEX RISK : ARE YOU FREQUENTLY EXPOSED TO LATEX PRODUCTS IN YOUR OCCUPATION?NO DATE ASKED : 11/23/2020 ALCOHOL USE: OCCASIONAL. ALCOHOL SCREENING DID YOU HAVE A DRINK CONTAINING ALCOHOL IN THE PAST YEAR?NO POINTS0 INTERPRETATIONNEGATIVE RECREATIONAL DRUG USE DRUG USE?NO MU-ISM [id number] SYNAGOGUE LANGUAGE LANGUAGES SPOKEN:FIJIAN EDUCATION LEVEL OF EDUCATION:NOT FINISHED COLLEGE LEARNING BARRIERS / SPECIAL NEEDS BARRIERS TO LEARNING?NO HEARING IMPAIRED?NO VISION IMPAIRED?YES :CORRECTIVE LENSES COGNITIVELY IMPAIRED?NO READINESS TO LEARN?YES LEARNING PREFERENCES?NO LEARNING CAPABILITIES PRESENT?YES EMOTIONAL BARRIERS?NO SPECIAL DEVICES?YES :CANE TAKER OFF NEEDED?NO DOMESTIC VIOLENCE DO YOU FEEL SAFE IN YOUR ENVIRONMENT?YES OCCUPATION: [employer] THE [employer]. TODAY'S VISIT 03/01/20, PATIENT DESCRIBES PAIN : ACHING, BURNING, HAVE IT ALL THE TIME, SHARP, STABBING, TENDER, THROBBING, SORE, SHOOTING, OTHER LOCALIZED, NUMBNESS DOWN LEFT LEG-FEELS LIKE PINS AND NEEDLES-OVER THE PAST MONTH. THE PAIN IS CONSTANT BUT THE INTENSITY AND THE DECRIPTIONS WILL VARY, FROM 0-10, WHAT LEVEL IS YOUR PAIN TODAY? 6, PRECIPITATING FACTORS WORSE WITH STANDING OR WALKING, INACTIVITY, ALLEVIATING FACTORS CHANGE OF ACTIVITY. - PFS REFERRAL NEEDED?NO CLERGY REFERRAL NEEDED?NO PUBLIC HEALTH REFERRAL NEEDED?NO HAS THE PATIENT BEEN EDUCATED REGARDING HIS/HER PLAN OF CARE?YES HAS THE PATIENT BEEN EDUCATED REGARDING PAIN, THE RISK FOR PAIN, THE IMPORTANCE OF EFFECTIVE PAIN MANAGEMENT, AND THE PAIN ASSESSMENT PROCESS?YES ADVANCE DIRECTIVE ADVANCE DIRECTIVE DISCUSSED WITH PATIENT:YES PT HAS NO ADVANCED DIRECTIVES, AND HE DECLINES INFORMATION ON HCP AT THIS TIME. REVIEW OF SYSTEMS CONSTITUTIONAL: ANY RECENT FEVER NO . CHILLS NO . WEIGHT CHANGE OF UNKNOWN REASONS NO . GASTROENTEROLOGY: NEW UNEXPLAINABLE CHANGES IN BOWEL CONTROL NO . CONSTIPATION NO . GENITOURINARY: ANY NEW CHANGE IN BLADDER CONTROL? NO . NEUROLOGY: NEW ONSET DIZZINESS OR NEUROLOGICAL CHANGES NOT MENTIONED NO . NEW NUMBNESS OR PAIN PATTERNS NOT MENTIONED AND PERTINENT TO TODAY'S VISIT NO . CARDIOLOGY: NEW CHEST PRESSURE NO . PATIENT DENIES NO . RESPIRATORY: UNEXPLAINABLE COUGH NO . NEW SHORTNESS OF BREATH NO . VITAL SIGNS WT 158.8 LBS, HT 72 IN, BMI 21.53 INDEX, BP 140/78 MM HG, HR 61 /MIN, RR 18 /MIN, TEMP 98.0 F, OXYGEN SAT % 98%, SAFE IN ENV? (Y/N) YES, NA INITIALS VA 09:59, REVIEWED BY: KARY MCKENZIE MA. EXAMINATION GENERAL EXAMINATION: GENERALNO ACUTE DISTRESS, WELL NOURISHED AND HYDRATED. PSYCHAPPROPRIATE MOOD AND AFFECT . LUNGS:CLEAR TO AUSCULTATION BILATERALLY, NO WHEEZES, RHONCHI, RALES. HEART:NO MURMURS, REGULAR RATE AND RHYTHM. ASSESSMENTS OTHER CHRONIC PAIN - G89.29 (PRIMARY) SPONDYLOSIS WITHOUT MYELOPATHY OR RADICULOPATHY, LUMBOSACRAL REGION - M47.817, RISK: (NULL) TREATMENT OTHER CHRONIC PAIN [facility] MRI SPINE, L.S. WITHOUT [id number] PAIN PROCEDURE LOGDATE OF KSOUUOTLL89/19/2021PROCEDURE:BILATERAL THERAPEUTIC LUMBAR FACET BLOCK L4-L5, L5-Z1CINKHN OF PRE SEDATEVALIUM 10MG; OXYCODONE 10MGRESULT:PRE 8-05/20 POST -11/17 CONTINUES TO HELP NOTES: 60-YEAR-OLD MALE IN FOR POST THERAPEUTIC LUMBAR FACET BLOCK FOLLOW-UP. GIVEN PRESENTING SYMPTOMS RECOMMEND MRI FOR FURTHER EVALUATION AND FOLLOW-UP IN 3 MONTHS. PATIENT HAS EXPRESSED UNDERSTANDING OF AND WAS IN AGREEMENT WITH TREATMENT PLAN. GIVEN TIME TO ASK QUESTIONS AND EXPRESS CONCERNS. PROCEDURE CODES FA211 ESTABILISHED PATIENT [facility] CHARGE DISPOSITION & COMMUNICATION FOLLOW UP 3 MONTHS (REASON: BACK PAIN MRI LSPINE W/O CONTRAST ) ELECTRONICALLY SIGNED BY NATHANAEL GRIFFIN ON 11/24/2020 AT 09:41 AM EDT DISCLAIMER : THIS IS A VISIT SUMMARY EXTRACTED FROM THE [employer] CHART. IT IS NOT A COPY OF THE [employer] PROGRESS NOTE. GLENYSD
== END ==
LOC: M PAIN 09:45
PROVIDERS: ATTEND Family Medicine
DX: G89.29 Other chronic pain (principal); M47.817 Spondylosis without myelopathy or radiculopathy, lumbosacral region; I10 Essential (primary) hypertension; M79.18 Myalgia, other site; F17.210 Nicotine dependence, cigarettes, uncomplicated; Z79.899 Other long term (current) drug therapy; Z79.891 Long term (current) use of opiate analgesic; Z88.6 Allergy status to analgesic agent

== ENCOUNTER → 2021-01-11 | Outpatient (CLI) | payer OTHER ==
--- NOTE | 2021-01-11 12:32 | REP ---
INDICATION: SPONDYLOSIS. COMPARISON: Comparison MRI study is from 20 July 2017.. TECHNIQUE: Sagittal and axial T1 and T2-weighted scans are acquired in the usual fashion with and without fat saturation. Sequences include spin echo, turbo spin-echo, and STIR imaging sequences. FINDINGS: There are multiple T2 hyperintense, T1 hypointense focal liver lesions. These most likely represent hepatic cysts. Confirmation with right upper quadrant sonography is recommended however. The liver is incompletely included in the imaging field of view. Axial T2 weighted scans raise question of common bile duct dilation as well. Normal caliber aorta. No other extra spinal abnormality. There is a moderate dextroconvex lumbar scoliotic curve. The tip of the conus medullaris is normal in appearance and position at T12. At T12-L1, there is a 2-3 mm retrolisthesis due to degenerative disc disease. Mild diffuse disc bulging is seen. No canal stenosis is noted. At L1-2, there is a 3 mm degenerative retrolisthesis noted essentially unchanged from the 2017 study. There is diffuse disc bulging at the L1-2 disc indenting the ventral margin of the thecal sac. There is minimal ligamentum flavum hypertrophy. There is no evidence of central canal stenosis. There is left-sided neural foraminal narrowing due to the scoliosis. At L2-3, there are degenerative disc changes with reactive marrow changes on either side of the disc. There is diffuse disc bulging. Borderline canal size is noted. Left-sided facet and ligamentum flavum hypertrophy are noted and there is left-sided neural foraminal narrowing due to disc bulging and facet hypertrophy along with the scoliosis. These neural foraminal changes are more pronounced than on the 2017 study at L2-3 and L1-2. At L3-4, there is posterior osteophytic ridging associated with diffuse disc bulging. Mild central canal stenosis is present. The thecal sac has a triangular configuration. These findings are unchanged. There is moderate right-sided facet hypertrophy and mild bilateral ligamentum flavum hypertrophy. There is bilateral neural foraminal narrowing at L3-4. At L4-5, there are degenerative disc changes. There is a 2 mm grade 1 degenerative L4-5 spondylolisthesis. Diffuse disc bulging is seen indenting the ventral margin of the thecal sac and there is mild to moderate central canal stenosis at L4-5. This appears slightly more prominent than on the prior study. Advanced facet osteoarthritis and some ligamentum flavum hypertrophy contribute to the central canal stenosis. There is right-sided neural foraminal narrowing at L4-5 again noted unchanged. At L5-S1 there is mild facet hypertrophy. No other finding. IMPRESSION: Advanced degenerative spondylosis changes as noted above. Neural foraminal narrowing at multiple levels exacerbated by scoliosis. Central canal stenosis at L4-5 and L3-4. Findings have progressed somewhat at L4-5. <Electronically signed by Maxi Nova > 01/11/21 0984
== END ==
LOC: M PLARAD 10:19
PROVIDERS: ATTEND Family Medicine
DX: M47.817 Spondylosis without myelopathy or radiculopathy, lumbosacral region (principal); M51.26 Other intervertebral disc displacement, lumbar region

== ENCOUNTER → 2021-01-13 | Outpatient (CLI) | payer OTHER | LOC: M LABSMTC 10:00 | PROVIDERS: ATTEND Anesthesiology | DX: Z11.52 Encounter for screening for COVID-19 (principal) ==

== ENCOUNTER → 2021-01-18 | Outpatient (CLI) | payer OTHER ==
--- NOTE | 2021-01-18 10:20 | REP ---
INDICATION: PAIN. COMPARISON: None. TECHNIQUE: Intraoperative fluoroscopic imaging using portable C-arm technique. FINDINGS: Images demonstrate needle placement and contrast injection for lumbar facet block. Total fluoroscopic time 24 seconds. IMPRESSION: Status post facet block. <Electronically signed by Saurabh Vincent > 01/18/21 1016
--- NOTE | 2021-01-22 00:24 | ECWPNPC ---
PATIENT NAME: DEVNI POLLARD : 1960 GENDER: MALE VISIT DATE: 01/18/2021 DISCHARGE DATE: 01/18/21 1031 VISIT LOCKED DATE TIME: PHYSICIAN: CINDY ESCOBAR MD RESOURCE: CINDY ESCOBAR MD REASON FOR APPOINTMENT 1. BILATERAL THEREPEUTIC LUMBAR FACET BLOCK L4-L5, L5-S1 HISTORY OF PRESENT ILLNESS GENERAL: -. FALL RISK SCREENING: SCREENING :YES. 3-4 FALLS. NO MEDICAL EVALUATIONS.. PAIN SCREENING: PATIENT HAS A COMPLAINT OF ACUTE OR CHRONIC PAIN :YES LOCATION OF PAIN:LOW BACK, LEG(S) LEFT INTENSITY OF PAIN (SCALE OF 1 TO 10):5 WHAT DOES YOUR PAIN FEEL LIKE:ACHING, BURNING, CONTINOUS, INTERMITTENT, SHARP, STABBING, TENDER, THROBBING, SORE, SHOOTING WORSE AT TIMES 7-8/10 DURATION:CONTINOUS, CONSTANT PAIN IS INCREASED BY:ACTIVITIES PAIN IS DECREASED BY:USE OF PAIN MEDICATIONS, OTHERS REPOSITIONING, REST, HEAT NURSING NOTE: -. PAIN CENTER INTAKE QUESTIONS: DO YOU HAVE A HISTORY OF MRSA? :NO DO YOU TAKE A BLOOD THINNERS? :NO DO YOU HAVE ANY BLEEDING DISORDERS? :NO ANY NEW NUMBNESS OR WEAKNESS IN YOUR LEGS OR ARMS? :NO ANY PACEMAKER,DEFIBRILLATOR, OR DORSAL COLUMN STIMULATOR? :NO DO YOU HAVE ANY RASHES OR OPEN SORES? :NO ARE YOU ALLERGIC TO IV DYE? :NO ARE YOU DIABETIC? :NO ANY NEW PROBLEMS WITH YOUR MEDICATIONS? :NO HAVE YOU RECEIVED A VACCINE IN THE PAST 30 DAYS? :NO DO YOU PLAN TO RECEIVE A VACCINE IN THE NEXT 21 DAYS? :NO DO YOU TAKE ANY IMMUNOSUPPRESSIVE MEDICATIONS? :NO ANY HISTORY OF SEIZURES? :NO ANY HISTORY OF CARDIAC ISSUES OR EVENTS? :NO DO YOU HAVE ANY KIDNEY OR LIVER DISEASE? :NO DO YOU HAVE SLEEP APNEA? :NO ANY RECENT HEAD INJURY? :NO DO YOU HAVE ANY NEW INFECTIONS? :NO IS THERE A CHANCE YOU COULD BE ? :NO ARE YOU BREAST FEEDING? :NO WHEN DID YOU LAST EAT? : - WHEN DID YOU LAST DRINK? : - WHAT DID YOU LAST DRINK? : - NAME OF PERSON DRIVING YOU HOME? : - HOOD DO YOU HAVE ANY OTHER QUESTIONS OR CONCERNS? : - CURRENT MEDICATIONS TAKING AZELASTINE HCL 0.1 % SOLUTION 2 PUFFS IN EACH NOSTRIL NASALLY TWICE A DAY TAKING LISINOPRIL 40 MG TABLET 1 TABLET ORALLY ONCE A DAY, NOTES: 01/17 TAKING FERROUS SULFATE 325 MG CAPSULE 1 CAP ORALLY DAILY TAKING MULTIVITAMIN - TABLET CHEWABLE 1 CAP ORALLY DAILY TAKING VITAMIN B COMPLEX - TABLET 1 TAB ORALLY DAILY TAKING VITAMIN D3 1000 UNIT CAPSULE 2 CAPSULE ORALLY 2000IU 2 TABS DAILY TAKING TYLENOL EXTRA STRENGTH 500 MG TABLET 2 TABLET NEEDED ORALLY EVERY 6 HRS TAKING NORCO 10-325 MG TABLET 1/2 TO 1 TABLET NEEDED ORALLY BID, NOTES: 01/18 430 TAKING MORPHINE SULFATE 60MG TABLET ER ORALLY BID, NOTES: 01/18 430 TAKING AMLODIPINE BESYLATE 10 MG TABLET 1 TABLET ORALLY ONCE A DAY, NOTES: 01/18 430 TAKING CARISOPRODOL 350 MG TABLET 1 TABLET NEEDED ORALLY BID PRN, NOTES: 01/17 NOT-TAKING METHOCARBAMOL 500 MG TABLET 1 TABLET ORALLY THREE TIMES DAILY, 2 TABS @ HS NOT-TAKING LIDOCAINE 5 % PATCH 1 PATCH TO SKIN REMOVE AFTER 12 HOURS EXTERNALLY ONCE A DAY NOT-TAKING GABAPENTIN 400 MG CAPSULE 1 CAPSULE ORALLY THREE TIMES DAILY NOT-TAKING NUCYNTA ER 200 MG TABLET EXTENDED RELEASE 12 HOUR 1 TABLET ORALLY EVERY 12 HRS NOT-TAKING MAGNESIUM OXIDE 400 MG TABLET 1 TABLET NEEDED ORALLY ONCE A DAY NOT-TAKING NUCYNTA 75 MG TABLET 1 TABLET ORALLY THREE TIMES DAILY NEEDED NOT-TAKING HYDROCODONE-ACETAMINOPHEN 5-300 MG TABLET DIRECTED ORALLY MDD=4 NOT-TAKING MAY USE CBD OIL PAST MEDICAL HISTORY HTN LBP MYALGIA ALLERGIES NSAIDS: ANAPHYLAXIS - ALLERGY SURGICAL HISTORY APPENDECTOMY 1974 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 3 SON(S) , 1 DAUGHTER(S) - HEALTHY. SOCIAL HISTORY GENERAL: TOBACCO USE ARE YOU A:CURRENT SMOKER ARE YOU INTERESTED IN QUITTING?NOT READY TO QUIT COUNSELED THE PATIENT ON SMOKING EFFECTS, EDUCATION YKSEHECD22/28/2021 HOW MANY CIGARETTES A DAY DO YOU SMOKE?5 OR LESS PATIENT COUNSELED ON THE DANGERS OF TOBACCO USE AND URGED TO QUIT:06/21/2020 SMOKING CESSATION INFORMATION GIVEN03/15/2020 LATEX QUESTIONNAIRE LATEX ALLERGY : HAVE YOU EVER DEVELOPED ANY TYPE OF REACTION AFTER HANDLING LATEX PRODUCTS SUCH RUBBER GLOVES, CONDOMS, DIAPHRAGMS, BALLOONS, SOCKS, OR UNDERWEAR?NO LATEX ALLERGY : HAVE YOU EVER DEVELOPED ANY TYPE OF REACTION DURING OR AFTER DENTAL APPOINTMENT, VAGINAL/RECTAL EXAMINATION, SURGICAL PROCEDURE, OR ANY OTHER EXPOSURE?NO LATEX RISK : HAVE YOU EVER HAD ANY DIFFICULTY BREATHING OR HIVES AFTER EATING OR HANDLING ANY FRUITS, OR VEGETABLES; SUCH KIWI, BANANAS, STONE FRUITS, OR CHESTNUTSNO LATEX RISK : DO YOU HAVE A PREVIOUS PERSONAL HISTORY OF MORE THAN NINE SURGERIES, SPINA BIFIDA, OR REPEATED CATHERIZATIONS? NO LATEX RISK : ARE YOU FREQUENTLY EXPOSED TO LATEX PRODUCTS IN YOUR OCCUPATION?NO DATE ASKED : 01/17/2021 ALCOHOL USE: NO. ALCOHOL SCREENING DID YOU HAVE A DRINK CONTAINING ALCOHOL IN THE PAST YEAR?NO POINTS0 INTERPRETATIONNEGATIVE RECREATIONAL DRUG USE DRUG USE?NO RESTORATIONIST [id number] RELIGION LANGUAGE LANGUAGES SPOKEN:ANGUILLAN EDUCATION LEVEL OF EDUCATION:NOT FINISHED COLLEGE LEARNING BARRIERS / SPECIAL NEEDS CHANGE FROM LAST VISIT?NO BARRIERS TO LEARNING?NO HEARING IMPAIRED?NO VISION IMPAIRED?YES :CORRECTIVE LENSES COGNITIVELY IMPAIRED?NO READINESS TO LEARN?YES LEARNING PREFERENCES?NO LEARNING CAPABILITIES PRESENT?YES EMOTIONAL BARRIERS?NO SPECIAL DEVICES?YES :CANE MANAGER CLIENT NEEDED?NO DOMESTIC VIOLENCE DO YOU FEEL SAFE IN YOUR ENVIRONMENT?YES 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 TODAY'S VISIT 03/01/20, PATIENT DESCRIBES PAIN : ACHING, BURNING, HAVE IT ALL THE TIME, SHARP, STABBING, TENDER, THROBBING, SORE, SHOOTING, OTHER LOCALIZED, NUMBNESS DOWN LEFT LEG-FEELS LIKE PINS AND NEEDLES-OVER THE PAST MONTH. THE PAIN IS CONSTANT BUT THE INTENSITY AND THE DECRIPTIONS WILL VARY, FROM 0-10, WHAT LEVEL IS YOUR PAIN TODAY? 6, PRECIPITATING FACTORS WORSE WITH STANDING OR WALKING, INACTIVITY, ALLEVIATING FACTORS CHANGE OF ACTIVITY. - PFS REFERRAL NEEDED?NO CLERGY REFERRAL NEEDED?NO PUBLIC HEALTH REFERRAL NEEDED?NO HAS THE PATIENT BEEN EDUCATED REGARDING HIS/HER PLAN OF CARE?YES HAS THE PATIENT BEEN EDUCATED REGARDING PAIN, THE RISK FOR PAIN, THE IMPORTANCE OF EFFECTIVE PAIN MANAGEMENT, AND THE PAIN ASSESSMENT PROCESS?YES ADVANCE DIRECTIVE ADVANCE DIRECTIVE DISCUSSED WITH PATIENT:YES PT HAS NO ADVANCED DIRECTIVES, AND HE DECLINES INFORMATION ON HCP AT THIS TIME. HOSPITALIZATION/MAJOR DIAGNOSTIC PROCEDURE SURGERY VITAL SIGNS WT 154.2 LBS, HT 72 IN, BMI 20.91 INDEX, BP 125/83 MM HG, HR 64 /MIN, RR 18 /MIN, TEMP 98.2 F, OXYGEN SAT % 98%, SAFE IN ENV? (Y/N) YES, NA INITIALS MN 08:47, REVIEWED BY: JEREMI RN. EXAMINATION GENERAL: A HISTORY AND PHYSICAL EXAM ON THE PATIENT WAS DONE ON 01/05/2021 (DATE OF ORIGINAL ASSESSMENT) IN PREPARATION OF SURGERY/PROCEDURE. I HAVE NOW REASSESSED THIS PATIENT'S HEALTH STATUS AND PERFORMED AN UPDATED EXAM TODAY. ALL CHANGES IN THE PATIENT'S HISTORY, PHYSICAL EXAM, PRE-EXISTING CONDITONS, AND INDICATIONS/CONTRAINDICATIONS TO THE PLANNED PROCEDURE AND ANESTHESIA ARE DOCUMENTED AND EVALUATED BELOW. I ATTEST TO THE ADEQUACY AND APPROPRIATENESS OF MY ASSESSMENT, AND CONFIRM THE NECESSITY FOR THE PLANNED PROCEDURE. THE PATIENT IS ALERT, ORIENTED TIMES THREE AND COOPERATIVE. LUNGS ARE CLEAR TO AUSCULTATION. HEART SHOWS REGULAR RHYTHM, NO MURMURS AND NO GALLOPS. ASSESSMENTS SPONDYLOSIS WITHOUT MYELOPATHY OR RADICULOPATHY, LUMBOSACRAL REGION - M47.817 (PRIMARY) SPONDYLOSIS WITHOUT MYELOPATHY OR RADICULOPATHY, LUMBAR REGION - M47.816 TREATMENT SPONDYLOSIS WITHOUT MYELOPATHY OR RADICULOPATHY, LUMBOSACRAL REGION SMC FACET BLOCK (PAIN)[id number] COMPLETION OF PROCEDURAL VISIT WHEN MEETS CRITERIA MEDICATION: VALIUM TAB 10MG ORALLY (DIAZEPAM)ROSANGELA SANABRIA 01/18/2021 8:46:53 AM > VERIFIED OLEG BANERJEE 01/18/2021 8:50:56 AM > ADMINISTERED MEDICATION: OXYCODONE HCL TAB 10MG ORALLYROSANGELA SANABRIA 01/18/2021 8:47:05 AM > VERIFIED OLEG BANERJEE 01/18/2021 8:51:22 AM > ADMINISTERED OTHERS NOTES: PAT COMPLETED 01/17/21. Gigi BANERJEE RN . PROCEDURES PAIN NURSING RECORD PROCEDURE IN ROOM 0930, PHYSICIAN IN ROOM 0946, START 0949, FINISH 1001, PHYSICIAN OUT OF ROOM 1003, OUT OF ROOM 1012, ECG NORMAL SINUS, PATIENT SHIELDED YES, SAFETY STRAP YES, PREP CHLOROPREP, CHLORHEXIDINE AND DURAPREP Alisha BANERJEE RN, DRESSING TEGADERM DR. ESCOBAR LOC: 1. ALERT, ORIENTED RESP: 1. REGULAR, NO DYSPNEA COLOR: 1. PINK SKIN: 1. WARM, DRY POSITION: 1. PRONE VITALS: GREER GALLEGOS 01/18/2021 9:08:56 AM > HR 70 02 98% BP 114/72 , OLEG BANERJEE 01/18/2021 9:23:46 AM > 113/73 HR 75 16 98% R/A CHRISS MARY 01/18/2021 9:38:16 AM > 112/64 HR 61 16 97% R/A , OLEG BANERJEE 01/18/2021 9:53:33 AM > 115/70 HR 59 16 98% R/A CHRISS MARY 01/18/2021 10:19:23 AM > 132/75 HR 61 16 98% R/A COMPLETION OF PROCEDURE APPOINTMENT: POST PAIN 2, DRESSING SITE DRY AND INTACT, IV N/A, GAIT STEADY, TEACHING COMPLETED, PATIENT ACKNOWLEDGES UNDERSTANDING YES, PROCEDURE APPOINTMENT COMPLETED AT 1027 PN LUMBAR FACET BLOCK THERAPEUTIC PRE PROCEDURE DIAGNOSIS LUMBAR SPONDYLOSIS, LUMBOSACRAL SPONDYLOSIS POST PROCEDURE DIAGNOSIS LUMBAR SPONDYLOSIS, LUMBOSACRAL SPONDYLOSIS PROCEDURE BILATERAL L4-L5 AND BILATERAL L5-S1 LUMBAR FACET THERAPEUTIC BLOCK SURGEON DR. CINDY ESCOBAR DIE CUTTER APPRENTICE NONE ANESTHESIA LOCAL PRE PROCEDURE NOTE THE PATIENT HAS A HISTORY OF CHRONIC LOW BACK PAIN. I EVALUATED THE PATIENT AND REVIEWED THE CHART. I WENT OVER THE RISKS, ALTERNATIVES, AND BENEFITS ASSOCIATED WITH THIS PROCEDURE. THE PATIENT WOULD LIKE TO PROCEED AND GIVES CONSENT TO PERFORM THE PROCEDURE. THE PATIENT DENIES UNEXPLAINABLE WEIGHT LOSS, FEVER, CHILLS, OR NEW CHANGES IN URINARY OR BOWEL CONTROL. THE PATIENT IS COVID-19 NEGATIVE DESCRIPTION OF PROCEDURE THE PATIENT WAS BROUGHT TO THE PROCEDURE ROOM AND PLACED IN THE PRONE POSITION. THE LUMBOSACRAL AREA WAS CLEANED WITH CHLORHEXIDINE AND DURAPREP SOLUTION AND DRAPED ASEPTICALLY. THE PROCEDURE WAS DONE UNDER STERILE CONDITIONS. A TIMEOUT WAS PERFORMED WHERE THE CONSENTED SITE WAS VERIFIED WITH EVERYONE IN THE ROOM. UNDER FLUOROSCOPIC GUIDANCE, THE TARGET POINT WAS SELECTED AT THE RIGHT AND LEFT L4-L5 AND RIGHT AND LEFT L5-S1 FACET JOINTS. TARGET POINT WAS SELECTED AFTER LATERAL ROTATION AND TILT OF THE MAGNIFIER OF THE C-ARM. I CONFIRMED AGAIN THE SITE OF TARGET. LIDOCAINE 0.5% WAS USED TO NUMB THE SKIN AND THE SUBCUTANEOUS TISSUE BELOW IT. SPINAL NEEDLES, 22-GAUGE, WERE ADVANCED UNDER FLUOROSCOPIC GUIDANCE AND FOLLOWING PATIENT FEEDBACK UNTIL THE TARGETS WERE TOUCHED. THE POSITION OF THE NEEDLES WAS VERIFIED WITH AP AND LATERAL VIEWS. AFTER PROPER POSITION OF THE NEEDLES WAS ACHIEVED, ISOVUE-M DYE 30%, 0.1 ML, WAS INJECTED SHOWING ADEQUATE SPREAD OF THE DYE. KENALOG 10 MG WAS INJECTED AT EACH SITE. THEN, A SOLUTION OF 1.0 ML OF BUPIVACAINE 0.125% OF WAS USED TO FLUSH EACH SITE. THE MEDICATION WAS VERIFIED WITH THE NURSE. THERE WAS NO EVIDENCE OF BLOOD, PARESTHESIA OR CEREBROSPINAL FLUID DURING THE PROCEDURE. THE PATIENT WAS SENT TO THE RECOVERY ROOM. THE PATIENT WAS MOVING THE EXTREMITIES AND DOING WELL. THERE WERE NO COMPLICATIONS DURING THE PROCEDURE. ESTIMATED BLOOD LOSS WAS LESS THAN 5 ML. FLUOROSCOPY TIME WAS 24 SECONDS POST PROCEDURE NOTE THE PATIENT WILL BE SEEN IN A FOLLOW UP IN THE NEXT FEW WEEKS. I AM LOOKING FOR LONG LASTING RELIEF FOR THE PATIENT WITH THIS INTERVENTION. INSTRUCTIONS WERE GIVEN, QUESTIONS WERE ANSWERED, AND THE PATIENT EXPRESSED UNDERSTANDING AND AGREES WITH THE PLAN. I, RAJI SANTANA, DOCUMENTED THE ABOVE INFORMATION ACTING A SCRIBE FOR DR. ESCOBAR. I HAVE REVIEWED THE ABOVE DOCUMENT, WRITTEN BY RAJI SANTANA, SENIOR JAVA J2EE DEVELOPER, AND I VERIFY THAT IT IS ACCURATE PROCEDURE CODES [id number] INJ PARAVERT F JNT L/S 1 LEV, MODIFIERS: 50 [id number] INJ PARAVERT F JNT L/S 2 LEV, MODIFIERS: 50 DISPOSITION & COMMUNICATION FOLLOW UP FOLLOW UP WITH LPN RN HOSPICE (REASON: POST BILATERAL THERAPEUTIC LUMBAR FACET BLOCK L4-L5, L5-S1) ELECTRONICALLY SIGNED BY CINDY ESCOBAR MD, MD ON 01/21/2021 AT 03:50 PM EDT DISCLAIMER : THIS IS A VISIT SUMMARY EXTRACTED FROM THE [employer] CHART. IT IS NOT A COPY OF THE [employer] PROGRESS NOTE. MTDD
== END ==
LOC: M PAIN 08:30
PROVIDERS: ATTEND Anesthesiology
DX: M47.817 Spondylosis without myelopathy or radiculopathy, lumbosacral region (principal); M47.816 Spondylosis without myelopathy or radiculopathy, lumbar region; F17.210 Nicotine dependence, cigarettes, uncomplicated; Z88.6 Allergy status to analgesic agent; Z79.891 Long term (current) use of opiate analgesic; Z79.899 Other long term (current) drug therapy
CPT/HCPCS: 64493; 64494; J3301; Q9967

== ENCOUNTER → 2021-02-04 | Outpatient (CLI) | payer OTHER ==
--- NOTE | 2021-02-09 02:24 | ECWPNPC ---
PATIENT NAME: DEVIN POLLARD : 1960 GENDER: MALE VISIT DATE: 02/04/2021 DISCHARGE DATE: 02/04/21 1114 VISIT LOCKED DATE TIME: PHYSICIAN: DEVORAH SMITH RESOURCE: DEVORAH SMITH REASON FOR APPOINTMENT 1. POST BILATERAL THEREPEUTIC LUMBAR FACET BLOCK L4-L5, L5-S1 HISTORY OF PRESENT ILLNESS DEPRESSION SCREENING: PHQ-2 (2015 EDITION) LITTLE INTEREST OR PLEASURE IN DOING THINGS?NOT AT ALL FEELING DOWN, DEPRESSED, OR HOPELESS?NOT AT ALL TOTAL SCORE0 GENERAL: HPI 60-YEAR-OLD MALE IN FOR POST BILATERAL THERAPEUTIC LUMBAR FACET BLOCK FOLLOW-UP. PATIENT FEELS THE PROCEDURE WAS SUCCESSFUL OVERALL RATING HIS PAIN PREPROCEDURE AT A 5 OUT OF 10 AND POSTPROCEDURE AT A 2 OUT OF 10. HE FURTHER STATES THE PROCEDURE CONTINUES TO HELP HIM TODAY. HE RATES HIS PAIN CURRENTLY AT A 2 OUT OF 10.. -. FALL RISK SCREENING: SCREENING : NO FALLS REPORTED IN THE LAST YEAR. PAIN SCREENING: PATIENT HAS A COMPLAINT OF ACUTE OR CHRONIC PAIN :YES LOCATION OF PAIN:LOW BACK INTENSITY OF PAIN (SCALE OF 1 TO 10):2 WHAT DOES YOUR PAIN FEEL LIKE:BURNING, CONTINOUS, SHARP, STABBING, TENDER, THROBBING, SORE, SHOOTING DURATION:CONTINOUS, CONSTANT, AWAKENS FROM SLEEP PAIN IS INCREASED BY:ACTIVITIES, PROLONGED STANDING PROLONGED LAYING PAIN IS DECREASED BY:USE OF PAIN MEDICATIONS, SITTING, OTHERS FACET BLOCK, REPOSITIONAL CHANGES NURSING NOTE: -. PAIN CENTER INTAKE QUESTIONS: DO YOU HAVE A HISTORY OF MRSA? :NO DO YOU TAKE A BLOOD THINNERS? :NO DO YOU HAVE ANY BLEEDING DISORDERS? :NO ANY NEW NUMBNESS OR WEAKNESS IN YOUR LEGS OR ARMS? :NO ANY PACEMAKER,DEFIBRILLATOR, OR DORSAL COLUMN STIMULATOR? :NO DO YOU HAVE ANY RASHES OR OPEN SORES? :NO ARE YOU ALLERGIC TO IV DYE? :NO ARE YOU DIABETIC? :NO ANY NEW PROBLEMS WITH YOUR MEDICATIONS? :NO HAVE YOU RECEIVED A VACCINE IN THE PAST 30 DAYS? :NO DO YOU PLAN TO RECEIVE A VACCINE IN THE NEXT 21 DAYS? :NO DO YOU NEED ANY PRESCRIPTION? :NO DO YOU TAKE ANY IMMUNOSUPPRESSIVE MEDICATIONS? :NO IS THERE A CHANCE YOU COULD BE ? :NO ARE YOU BREAST FEEDING? :NO CURRENT MEDICATIONS TAKING AZELASTINE HCL 0.1 % SOLUTION 2 PUFFS IN EACH NOSTRIL NASALLY TWICE A DAY TAKING LISINOPRIL 40 MG TABLET 1 TABLET ORALLY ONCE A DAY TAKING FERROUS SULFATE 325 MG CAPSULE 1 CAP ORALLY DAILY TAKING MULTIVITAMIN - TABLET CHEWABLE 1 CAP ORALLY DAILY TAKING VITAMIN B COMPLEX - TABLET 1 TAB ORALLY DAILY TAKING VITAMIN D3 1000 UNIT CAPSULE 2 CAPSULE ORALLY 2000IU 2 TABS DAILY TAKING TYLENOL EXTRA STRENGTH 500 MG TABLET 2 TABLET NEEDED ORALLY EVERY 6 HRS TAKING NORCO 10-325 MG TABLET 1/2 TO 1 TABLET NEEDED ORALLY BID TAKING MORPHINE SULFATE 60MG TABLET ER ORALLY BID TAKING AMLODIPINE BESYLATE 10 MG TABLET 1 TABLET ORALLY ONCE A DAY TAKING CARISOPRODOL 350 MG TABLET 1 TABLET NEEDED ORALLY BID PRN NOT-TAKING METHOCARBAMOL 500 MG TABLET 1 TABLET ORALLY THREE TIMES DAILY, 2 TABS @ HS NOT-TAKING LIDOCAINE 5 % PATCH 1 PATCH TO SKIN REMOVE AFTER 12 HOURS EXTERNALLY ONCE A DAY NOT-TAKING GABAPENTIN 400 MG CAPSULE 1 CAPSULE ORALLY THREE TIMES DAILY NOT-TAKING NUCYNTA ER 200 MG TABLET EXTENDED RELEASE 12 HOUR 1 TABLET ORALLY EVERY 12 HRS NOT-TAKING MAGNESIUM OXIDE 400 MG TABLET 1 TABLET NEEDED ORALLY ONCE A DAY NOT-TAKING NUCYNTA 75 MG TABLET 1 TABLET ORALLY THREE TIMES DAILY NEEDED NOT-TAKING HYDROCODONE-ACETAMINOPHEN 5-300 MG TABLET DIRECTED ORALLY MDD=4 NOT-TAKING MAY USE CBD OIL MEDICATION LIST REVIEWED AND RECONCILED WITH THE PATIENT PAST MEDICAL HISTORY HTN LBP MYALGIA ALLERGIES NSAIDS: ANAPHYLAXIS - ALLERGY SOCIAL HISTORY GENERAL: TOBACCO USE ARE YOU A:CURRENT SMOKER ARE YOU INTERESTED IN QUITTING?NOT READY TO QUIT COUNSELED THE PATIENT ON SMOKING EFFECTS, EDUCATION [id number]/28/2021 HOW MANY CIGARETTES A DAY DO YOU SMOKE?5 OR LESS PATIENT COUNSELED ON THE DANGERS OF TOBACCO USE AND URGED TO QUIT:06/21/2020 SMOKING CESSATION INFORMATION GIVEN03/15/2020 LATEX QUESTIONNAIRE LATEX ALLERGY : HAVE YOU EVER DEVELOPED ANY TYPE OF REACTION AFTER HANDLING LATEX PRODUCTS SUCH RUBBER GLOVES, CONDOMS, DIAPHRAGMS, BALLOONS, SOCKS, OR UNDERWEAR?NO LATEX ALLERGY : HAVE YOU EVER DEVELOPED ANY TYPE OF REACTION DURING OR AFTER DENTAL APPOINTMENT, VAGINAL/RECTAL EXAMINATION, SURGICAL PROCEDURE, OR ANY OTHER EXPOSURE?NO LATEX RISK : HAVE YOU EVER HAD ANY DIFFICULTY BREATHING OR HIVES AFTER EATING OR HANDLING ANY FRUITS, OR VEGETABLES; SUCH KIWI, BANANAS, STONE FRUITS, OR CHESTNUTSNO LATEX RISK : DO YOU HAVE A PREVIOUS PERSONAL HISTORY OF MORE THAN NINE SURGERIES, SPINA BIFIDA, OR REPEATED CATHERIZATIONS? NO LATEX RISK : ARE YOU FREQUENTLY EXPOSED TO LATEX PRODUCTS IN YOUR OCCUPATION?NO DATE ASKED : 02/04/2021 ALCOHOL USE: NO. ALCOHOL SCREENING DID YOU HAVE A DRINK CONTAINING ALCOHOL IN THE PAST YEAR?NO POINTS0 INTERPRETATIONNEGATIVE RECREATIONAL DRUG USE DRUG USE?NO HOAHAOISM [id number] BUDDHIST LANGUAGE LANGUAGES SPOKEN:LITHUANIAN EDUCATION LEVEL OF EDUCATION:NOT FINISHED COLLEGE LEARNING BARRIERS / SPECIAL NEEDS CHANGE FROM LAST VISIT?NO BARRIERS TO LEARNING?NO HEARING IMPAIRED?NO VISION IMPAIRED?YES :CORRECTIVE LENSES COGNITIVELY IMPAIRED?NO READINESS TO LEARN?YES LEARNING PREFERENCES?NO LEARNING CAPABILITIES PRESENT?YES EMOTIONAL BARRIERS?NO SPECIAL DEVICES?YES :CANE VISCOSE CELLAR CHARGE HAND NEEDED?NO DOMESTIC VIOLENCE DO YOU FEEL SAFE IN YOUR ENVIRONMENT?YES 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 TODAY'S VISIT 03/01/20, PATIENT DESCRIBES PAIN : ACHING, BURNING, HAVE IT ALL THE TIME, SHARP, STABBING, TENDER, THROBBING, SORE, SHOOTING, OTHER LOCALIZED, NUMBNESS DOWN LEFT LEG-FEELS LIKE PINS AND NEEDLES-OVER THE PAST MONTH. THE PAIN IS CONSTANT BUT THE INTENSITY AND THE DECRIPTIONS WILL VARY, FROM 0-10, WHAT LEVEL IS YOUR PAIN TODAY? 6, PRECIPITATING FACTORS WORSE WITH STANDING OR WALKING, INACTIVITY, ALLEVIATING FACTORS CHANGE OF ACTIVITY. - PFS REFERRAL NEEDED?NO CLERGY REFERRAL NEEDED?NO PUBLIC HEALTH REFERRAL NEEDED?NO HAS THE PATIENT BEEN EDUCATED REGARDING HIS/HER PLAN OF CARE?YES HAS THE PATIENT BEEN EDUCATED REGARDING PAIN, THE RISK FOR PAIN, THE IMPORTANCE OF EFFECTIVE PAIN MANAGEMENT, AND THE PAIN ASSESSMENT PROCESS?YES ADVANCE DIRECTIVE ADVANCE DIRECTIVE DISCUSSED WITH PATIENT:YES PT HAS NO ADVANCED DIRECTIVES, AND HE DECLINES INFORMATION ON HCP AT THIS TIME. REVIEW OF SYSTEMS CONSTITUTIONAL: ANY RECENT FEVER NO . CHILLS NO . WEIGHT CHANGE OF UNKNOWN REASONS NO . GASTROENTEROLOGY: NEW UNEXPLAINABLE CHANGES IN BOWEL CONTROL NO . CONSTIPATION NO . GENITOURINARY: ANY NEW CHANGE IN BLADDER CONTROL? NO . NEUROLOGY: NEW ONSET DIZZINESS OR NEUROLOGICAL CHANGES NOT MENTIONED NO . NEW NUMBNESS OR PAIN PATTERNS NOT MENTIONED AND PERTINENT TO TODAY'S VISIT NO . CARDIOLOGY: NEW CHEST PRESSURE NO . PATIENT DENIES NO . RESPIRATORY: UNEXPLAINABLE COUGH NO . NEW SHORTNESS OF BREATH NO . VITAL SIGNS WT 149.8 LBS, HT 72 IN, BMI 20.31 INDEX, BP 108/67 MM HG, HR 66 /MIN, RR 18 /MIN, TEMP 98.7 F, OXYGEN SAT % 96%, SAFE IN ENV? (Y/N) YES, REVIEWED BY: KARY MCKENZIE MA. EXAMINATION GENERAL EXAMINATION: GENERALNO ACUTE DISTRESS, WELL NOURISHED AND HYDRATED. PSYCHAPPROPRIATE MOOD AND AFFECT . LUNGS:CLEAR TO AUSCULTATION BILATERALLY, NO WHEEZES, RHONCHI, RALES. HEART:NO MURMURS, REGULAR RATE AND RHYTHM. ASSESSMENTS OTHER CHRONIC PAIN - G89.29 (PRIMARY) SPONDYLOSIS WITHOUT MYELOPATHY OR RADICULOPATHY, LUMBOSACRAL REGION - M47.817 TREATMENT OTHER CHRONIC PAIN PAIN PROCEDURE LOGDATE OF [id number]/11/2021PROCEDURE:BILATERAL THERAPEUTIC LUMBAR FACET BLOCK L4-L5, [id number] OF PRE SEDATEVALIUM 10MG; OXYCODONE 10MGRESULT:PRE 610 POST 210 CONTINUES TO HELP TODAY SPONDYLOSIS WITHOUT MYELOPATHY OR RADICULOPATHY, LUMBOSACRAL REGION NOTES: 60-YEAR-OLD MALE IN FOR POST BILATERAL THERAPEUTIC LUMBAR FACET BLOCK FOLLOW-UP. GIVEN PRESENTING SYMPTOMS RECOMMEND FOLLOW-UP IN 2 MONTHS. PATIENT HAS EXPRESSED AN PRESENTING OF AND WAS IN AGREEMENT WITH TREATMENT PLAN. GIVEN TIME TO ASK QUESTIONS AND EXPRESS CONCERNS. PROCEDURE CODES FA211 ESTABILISHED PATIENT [facility] CHARGE DISPOSITION & COMMUNICATION FOLLOW UP 2 MONTHS (REASON: LOW BACK PAIN) ELECTRONICALLY SIGNED BY NATHANAEL GRIFFIN ON 02/08/2021 AT 09:12 AM EDT DISCLAIMER : THIS IS A VISIT SUMMARY EXTRACTED FROM THE [employer] CHART. IT IS NOT A COPY OF THE [employer] PROGRESS NOTE. MTDD
== END ==
LOC: M PAIN 10:30
PROVIDERS: ATTEND Family Medicine
DX: M47.817 Spondylosis without myelopathy or radiculopathy, lumbosacral region (principal); G89.29 Other chronic pain; M79.10 Myalgia, unspecified site; F17.210 Nicotine dependence, cigarettes, uncomplicated; Z88.6 Allergy status to analgesic agent; Z79.891 Long term (current) use of opiate analgesic; Z79.899 Other long term (current) drug therapy

== ENCOUNTER → 2021-04-06 | Outpatient (CLI) | payer OTHER ==
--- NOTE | 2021-04-08 04:05 | ECWPNPC ---
PATIENT NAME: DEVIN POLLARD : 1960 GENDER: MALE VISIT DATE: 04/06/2021 DISCHARGE DATE: 04/06/21 1012 VISIT LOCKED DATE TIME: PHYSICIAN: DEVORAH SMITH RESOURCE: DEVORAH SMITH REASON FOR APPOINTMENT 1. LOW BACK PAIN HISTORY OF PRESENT ILLNESS GENERAL: HPI 60-YEAR-OLD MALE IN FOR CHRONIC PAIN FOLLOW-UP. HE RATES HIS PAIN CURRENTLY AT A 4-10 AND DESCRIBES IT ACHING, BURNING, AND INTERMITTENT.. -. FALL RISK SCREENING: SCREENING : NO FALLS REPORTED IN THE LAST YEAR. PAIN SCREENING: PATIENT HAS A COMPLAINT OF ACUTE OR CHRONIC PAIN :YES LOCATION OF PAIN:LOW BACK INTENSITY OF PAIN (SCALE OF 1 TO 10):4 WHAT DOES YOUR PAIN FEEL LIKE:ACHING, BURNING, INTERMITTENT, SHARP, STABBING, TENDER, THROBBING, SORE, SHOOTING DURATION:INTERMITTENT, AWAKENS FROM SLEEP PAIN IS INCREASED BY:ACTIVITIES, PROLONGED STANDING PAIN IS DECREASED BY:USE OF PAIN MEDICATIONS, SITTING REPOSTIONING NURSING NOTE: -. PAIN CENTER INTAKE QUESTIONS: DO YOU HAVE A HISTORY OF MRSA? :NO DO YOU TAKE A BLOOD THINNERS? :NO DO YOU HAVE ANY BLEEDING DISORDERS? :NO ANY NEW NUMBNESS OR WEAKNESS IN YOUR LEGS OR ARMS? :NO ANY PACEMAKER,DEFIBRILLATOR, OR DORSAL COLUMN STIMULATOR? :NO DO YOU HAVE ANY RASHES OR OPEN SORES? :NO ARE YOU ALLERGIC TO IV DYE? :NO ARE YOU DIABETIC? :NO ANY NEW PROBLEMS WITH YOUR MEDICATIONS? :NO HAVE YOU RECEIVED A VACCINE IN THE PAST 30 DAYS? :NO DO YOU PLAN TO RECEIVE A VACCINE IN THE NEXT 21 DAYS? :YES IF SO WHAT VACCINE AND WHEN? COVID 04/06/2021 DO YOU NEED ANY PRESCRIPTION? :NO DO YOU TAKE ANY IMMUNOSUPPRESSIVE MEDICATIONS? :NO IS THERE A CHANCE YOU COULD BE ? :NO ARE YOU BREAST FEEDING? :NO CURRENT MEDICATIONS TAKING AZELASTINE HCL 0.1 % SOLUTION 2 PUFFS IN EACH NOSTRIL NASALLY TWICE A DAY TAKING LISINOPRIL 40 MG TABLET 1 TABLET ORALLY ONCE A DAY TAKING FERROUS SULFATE 325 MG CAPSULE 1 CAP ORALLY DAILY TAKING MULTIVITAMIN - TABLET CHEWABLE 1 CAP ORALLY DAILY TAKING VITAMIN B COMPLEX - TABLET 1 TAB ORALLY DAILY TAKING VITAMIN D3 1000 UNIT CAPSULE 2 CAPSULE ORALLY 2000IU 2 TABS DAILY TAKING TYLENOL EXTRA STRENGTH 500 MG TABLET 2 TABLET NEEDED ORALLY EVERY 6 HRS TAKING NORCO 10-325 MG TABLET 1/2 TO 1 TABLET NEEDED ORALLY BID TAKING MORPHINE SULFATE 60MG TABLET ER ORALLY BID TAKING AMLODIPINE BESYLATE 10 MG TABLET 1 TABLET ORALLY ONCE A DAY TAKING CARISOPRODOL 350 MG TABLET 1 TABLET NEEDED ORALLY BID PRN NOT-TAKING METHOCARBAMOL 500 MG TABLET 1 TABLET ORALLY THREE TIMES DAILY, 2 TABS @ HS NOT-TAKING LIDOCAINE 5 % PATCH 1 PATCH TO SKIN REMOVE AFTER 12 HOURS EXTERNALLY ONCE A DAY NOT-TAKING GABAPENTIN 400 MG CAPSULE 1 CAPSULE ORALLY THREE TIMES DAILY NOT-TAKING NUCYNTA ER 200 MG TABLET EXTENDED RELEASE 12 HOUR 1 TABLET ORALLY EVERY 12 HRS NOT-TAKING MAGNESIUM OXIDE 400 MG TABLET 1 TABLET NEEDED ORALLY ONCE A DAY NOT-TAKING NUCYNTA 75 MG TABLET 1 TABLET ORALLY THREE TIMES DAILY NEEDED NOT-TAKING HYDROCODONE-ACETAMINOPHEN 5-300 MG TABLET DIRECTED ORALLY MDD=4 DISCONTINUED MAY USE CBD OIL , NOTES: PATIENT STATES HE HAS NEVER USED MEDICATION LIST REVIEWED AND RECONCILED WITH THE PATIENT PAST MEDICAL HISTORY HTN LBP MYALGIA ALLERGIES NSAIDS: ANAPHYLAXIS - ALLERGY SOCIAL HISTORY GENERAL: TOBACCO USE ARE YOU A:CURRENT SMOKER ARE YOU INTERESTED IN QUITTING?NOT READY TO QUIT COUNSELED THE PATIENT ON SMOKING EFFECTS, EDUCATION [id number]/28/2021 HOW MANY CIGARETTES A DAY DO YOU SMOKE?5 OR LESS PATIENT COUNSELED ON THE DANGERS OF TOBACCO USE AND URGED TO QUIT:04/06/2021 SMOKING CESSATION INFORMATION GIVEN03/15/2020 LATEX QUESTIONNAIRE LATEX ALLERGY : HAVE YOU EVER DEVELOPED ANY TYPE OF REACTION AFTER HANDLING LATEX PRODUCTS SUCH RUBBER GLOVES, CONDOMS, DIAPHRAGMS, BALLOONS, SOCKS, OR UNDERWEAR?NO LATEX ALLERGY : HAVE YOU EVER DEVELOPED ANY TYPE OF REACTION DURING OR AFTER DENTAL APPOINTMENT, VAGINAL/RECTAL EXAMINATION, SURGICAL PROCEDURE, OR ANY OTHER EXPOSURE?NO LATEX RISK : HAVE YOU EVER HAD ANY DIFFICULTY BREATHING OR HIVES AFTER EATING OR HANDLING ANY FRUITS, OR VEGETABLES; SUCH KIWI, BANANAS, STONE FRUITS, OR CHESTNUTSNO LATEX RISK : DO YOU HAVE A PREVIOUS PERSONAL HISTORY OF MORE THAN NINE SURGERIES, SPINA BIFIDA, OR REPEATED CATHERIZATIONS? NO LATEX RISK : ARE YOU FREQUENTLY EXPOSED TO LATEX PRODUCTS IN YOUR OCCUPATION?NO DATE ASKED : 04/06/2021 ALCOHOL USE: NO. ALCOHOL SCREENING DID YOU HAVE A DRINK CONTAINING ALCOHOL IN THE PAST YEAR?NO POINTS0 INTERPRETATIONNEGATIVE RECREATIONAL DRUG USE DRUG USE?NO YAZIDISM [id number] CAODAISM LANGUAGE LANGUAGES SPOKEN:PRYDEINIG EDUCATION LEVEL OF EDUCATION:NOT FINISHED COLLEGE LEARNING BARRIERS / SPECIAL NEEDS CHANGE FROM LAST VISIT?NO BARRIERS TO LEARNING?NO HEARING IMPAIRED?NO VISION IMPAIRED?YES :CORRECTIVE LENSES COGNITIVELY IMPAIRED?NO READINESS TO LEARN?YES LEARNING PREFERENCES?NO LEARNING CAPABILITIES PRESENT?YES EMOTIONAL BARRIERS?NO SPECIAL DEVICES?YES :CANE RARELY USES THE CANE LAN MANAGER NEEDED?NO DOMESTIC VIOLENCE DO YOU FEEL SAFE IN YOUR ENVIRONMENT?YES OCCUPATION: [employer] FOR THE [employer] OFFICE. TODAY'S VISIT 03/01/20, PATIENT DESCRIBES PAIN : ACHING, BURNING, HAVE IT ALL THE TIME, SHARP, STABBING, TENDER, THROBBING, SORE, SHOOTING, OTHER LOCALIZED, NUMBNESS DOWN LEFT LEG-FEELS LIKE PINS AND NEEDLES-OVER THE PAST MONTH. THE PAIN IS CONSTANT BUT THE INTENSITY AND THE DECRIPTIONS WILL VARY, FROM 0-10, WHAT LEVEL IS YOUR PAIN TODAY? 6, PRECIPITATING FACTORS WORSE WITH STANDING OR WALKING, INACTIVITY, ALLEVIATING FACTORS CHANGE OF ACTIVITY. - PFS REFERRAL NEEDED?NO CLERGY REFERRAL NEEDED?NO PUBLIC HEALTH REFERRAL NEEDED?NO HAS THE PATIENT BEEN EDUCATED REGARDING HIS/HER PLAN OF CARE?YES HAS THE PATIENT BEEN EDUCATED REGARDING PAIN, THE RISK FOR PAIN, THE IMPORTANCE OF EFFECTIVE PAIN MANAGEMENT, AND THE PAIN ASSESSMENT PROCESS?YES ADVANCE DIRECTIVE ADVANCE DIRECTIVE DISCUSSED WITH PATIENT:YES PT HAS NO ADVANCED DIRECTIVES, AND HE DECLINES INFORMATION ON HCP AT THIS TIME. REVIEW OF SYSTEMS CONSTITUTIONAL: ANY RECENT FEVER NO . CHILLS NO . WEIGHT CHANGE OF UNKNOWN REASONS NO . GASTROENTEROLOGY: NEW UNEXPLAINABLE CHANGES IN BOWEL CONTROL NO . CONSTIPATION NO . GENITOURINARY: ANY NEW CHANGE IN BLADDER CONTROL? NO . NEUROLOGY: NEW ONSET DIZZINESS OR NEUROLOGICAL CHANGES NOT MENTIONED NO . NEW NUMBNESS OR PAIN PATTERNS NOT MENTIONED AND PERTINENT TO TODAY'S VISIT NO . CARDIOLOGY: NEW CHEST PRESSURE NO . PATIENT DENIES NO . RESPIRATORY: UNEXPLAINABLE COUGH NO . NEW SHORTNESS OF BREATH NO . VITAL SIGNS WT 147.6 LBS, HT 72 IN, BMI 20.02 INDEX, BP 123/73 MM HG, HR 62 /MIN, RR 18 /MIN, TEMP 98.1 F, OXYGEN SAT % 98%, SAFE IN ENV? (Y/N) YES, REVIEWED BY: KARY MCKENZIE MA. EXAMINATION GENERAL EXAMINATION: GENERALNO ACUTE DISTRESS, WELL NOURISHED AND HYDRATED. PSYCHAPPROPRIATE MOOD AND AFFECT . LUNGS:CLEAR TO AUSCULTATION BILATERALLY, NO WHEEZES, RHONCHI, RALES. HEART:NO MURMURS, REGULAR RATE AND RHYTHM. ASSESSMENTS SPONDYLOSIS WITHOUT MYELOPATHY OR RADICULOPATHY, LUMBAR REGION - M47.816 TREATMENT SPONDYLOSIS WITHOUT MYELOPATHY OR RADICULOPATHY, LUMBAR REGION NOTES: 60-YEAR-OLD MALE IN FOR CHRONIC PAIN FOLLOW-UP. DISCUSSED PROCEDURES WITH PATIENT AND AT THIS TIME PATIENT ADMITS HE WILL BE GETTING HIS COVID VACCINES IN THE NEXT FEW WEEKS SO RECOMMEND FOLLOW-UP IN 6 WEEKS. PATIENT HAS EXPRESSED UNDERSTANDING OF AND WAS IN AGREEMENT WITH TREATMENT PLAN. GIVEN TIME ASKED QUESTIONS AND EXPRESS CONCERNS. PROCEDURE CODES FA211 ESTABILISHED PATIENT [facility] FACILITY CHARGE DISPOSITION & COMMUNICATION FOLLOW UP 6 WEEKS (REASON: BACK PAIN) ELECTRONICALLY SIGNED BY NATHANAEL GRIFFIN ON 04/07/2021 AT 08:01 AM EDT DISCLAIMER : THIS IS A VISIT SUMMARY EXTRACTED FROM THE [employer] CHART. IT IS NOT A COPY OF THE [employer] PROGRESS NOTE. TIMUR
== END ==
LOC: M PAIN 09:30
PROVIDERS: ATTEND Family Medicine
DX: M47.816 Spondylosis without myelopathy or radiculopathy, lumbar region (principal); I10 Essential (primary) hypertension; M54.5 Low back pain; M79.18 Myalgia, other site; F17.210 Nicotine dependence, cigarettes, uncomplicated; Z79.891 Long term (current) use of opiate analgesic; Z79.899 Other long term (current) drug therapy; Z88.6 Allergy status to analgesic agent

== ENCOUNTER → 2021-06-03 | Outpatient (CLI) | payer OTHER | LOC: M PAIN 11:30 | PROVIDERS: ATTEND Anesthesiology | DX: M79.18 Myalgia, other site (principal); M54.5 Low back pain; F17.210 Nicotine dependence, cigarettes, uncomplicated; Z88.6 Allergy status to analgesic agent; Z79.891 Long term (current) use of opiate analgesic; Z79.899 Other long term (current) drug therapy ==

== ENCOUNTER → 2021-06-09 | Outpatient (CLI) | payer OTHER | LOC: M LABSMTC 10:03 | PROVIDERS: ATTEND Anesthesiology | DX: Z01.812 Encounter for preprocedural laboratory examination (principal); Z20.822 Contact with and (suspected) exposure to COVID-19 ==

== ENCOUNTER → 2021-06-14 | Outpatient (CLI) | payer OTHER ==
[~2021-06-14] MED LIST changes: +BUPIVACAINE HCL 0.25% 10ML VIAL As Ordered ONE; -ISOVUE-M 300 61% 15ML VIAL As Ordered ONE; -LIDOCAINE 1% SDV 30ML VIAL As Ordered ONE
== END ==
LOC: M PAIN 09:30
PROVIDERS: ATTEND Anesthesiology
DX: M79.10 Myalgia, unspecified site (principal); F17.210 Nicotine dependence, cigarettes, uncomplicated; Z88.6 Allergy status to analgesic agent; Z79.891 Long term (current) use of opiate analgesic; Z79.899 Other long term (current) drug therapy
CPT/HCPCS: 20552; J3301

== ENCOUNTER → 2021-06-30 | Outpatient (CLI) | payer OTHER | LOC: M PAIN 11:30 | PROVIDERS: ATTEND Anesthesiology | DX: M47.816 Spondylosis without myelopathy or radiculopathy, lumbar region (principal); G89.29 Other chronic pain; F17.210 Nicotine dependence, cigarettes, uncomplicated; Z88.6 Allergy status to analgesic agent; Z79.891 Long term (current) use of opiate analgesic; Z79.899 Other long term (current) drug therapy ==

== ENCOUNTER → 2021-08-11 | Outpatient (CLI) | payer OTHER | LOC: M LABSMTC 11:18 | PROVIDERS: ATTEND Anesthesiology | DX: Z01.812 Encounter for preprocedural laboratory examination (principal); Z20.822 Contact with and (suspected) exposure to COVID-19 ==

== ENCOUNTER → 2022-02-17 | Outpatient (REF) | payer OTHER | LOC: M LAB REF 12:13 | PROVIDERS: ATTEND Physician Assistant Medical | DX: M25.422 Effusion, left elbow (principal) ==

== ENCOUNTER → 2022-04-05 | Outpatient (CLI) | payer OTHER | LOC: M PAIN 10:45 | PROVIDERS: ATTEND Anesthesiology | DX: M47.816 Spondylosis without myelopathy or radiculopathy, lumbar region (principal); G89.29 Other chronic pain; F17.210 Nicotine dependence, cigarettes, uncomplicated; Z88.6 Allergy status to analgesic agent; Z79.899 Other long term (current) drug therapy ==

== ENCOUNTER → 2022-05-11 | Outpatient (CLI) | payer OTHER | LOC: M PAIN 10:45 | PROVIDERS: ATTEND Anesthesiology | DX: M79.18 Myalgia, other site (principal); G89.29 Other chronic pain; I10 Essential (primary) hypertension; F17.210 Nicotine dependence, cigarettes, uncomplicated; Z88.6 Allergy status to analgesic agent; Z79.899 Other long term (current) drug therapy ==

== ENCOUNTER → 2023-12-27 | Outpatient (CLI) | payer OTHER | LOC: M RAD 16:29 | PROVIDERS: ATTEND Physician Assistant | DX: Z12.2 Encounter for screening for malignant neoplasm of respiratory organs (principal); F17.210 Nicotine dependence, cigarettes, uncomplicated ==

== ENCOUNTER → 2024-01-21 | Outpatient (CLI) | payer OTHER | LOC: M RAD 12:55 | PROVIDERS: ATTEND Physician Assistant | DX: K76.89 Other specified diseases of liver (principal); R14.0 Abdominal distension (gaseous) ==

== ENCOUNTER → 2024-02-18 | Outpatient (CLI) | payer OTHER ==
[~2024-02-18] MED LIST changes: -BUPIVACAINE HCL 0.25% 10ML VIAL As Ordered ONE; -BUPIVACAINE HCL 0.25% 30ML VIAL As Ordered ONE; +PROHANCE 279.3MG/ML 15ML VIAL ONE; -TRIAMCINOLONE ACETONIDE SUSP 40 MG/ML VIAL (J3301) As Ordered ONE; -diazePAM 5MG TABLET As Ordered ONE; -oxyCODONE 5MG TAB As Ordered ONE
== END ==
LOC: M PLAIMG 10:39
PROVIDERS: ATTEND Physician Assistant
DX: K76.89 Other specified diseases of liver (principal)
CPT/HCPCS: 74183; A9576

== ENCOUNTER → 2025-03-12 | Outpatient (CLI) | payer OTHER | LOC: M RAD 16:09 | PROVIDERS: ATTEND Physician Assistant | DX: R91.8 Other nonspecific abnormal finding of lung field (principal); K76.89 Other specified diseases of liver ==